=== PATIENT | female | born 1940 | race Caucasian/White ===

== ENCOUNTER → 2017-01-11 | Outpatient (CLI) | payer MEDICARE ==
--- NOTE | 2017-01-12 08:14 | MM ---
Reason for exam: history of breast cancer, mastectomy. Last mammogram was performed 1 year ago. History: Patient is postmenopausal, has history of breast cancer at age 73, and is nulliparous. Family history of breast cancer in maternal aunt and breast cancer in maternal cousin. Malignant US biopsy breast VAD LT of the left breast, July 30, 2014. Malignant US biopsy breast VAD LT of the left breast, July 30, 2014. Mastectomy of the left breast. Took estrogen for 22 years 3 months. Physical Findings: Nurse did not find any significant physical abnormalities on exam. MG 3D Diag Mammo W/Cad RT CC and MLO view(s) were taken of the right breast. Prior study comparison: January 11, 2016, right breast MG 3d diag mammo w/cad RT. July 30, 2014, left breast MG diagnostic mammo LT wo CAD. July 23, 2014, bilateral MG diagnostic mammo w CAD DEE DEE. The breast tissue is heterogeneously dense. This may lower the sensitivity of mammography. Finding: There are typically benign round calcifications in the right breast. There is no discrete abnormality. These results were verbally communicated with the patient and result sheet given to the patient on 01/11/17. ASSESSMENT: Benign, BI-RAD 2 RECOMMENDATION: Follow-up diagnostic mammogram of the right breast in 1 year.
== END | disposition home or self-care (01) ==
LOC: RADMAMWWP 15:41
PROVIDERS: ATTEND Internal Medicine Hematology & Oncology
DX: Z08 Encounter for follow-up examination after completed treatment for malignant neoplasm (principal); Z85.3 Personal history of malignant neoplasm of breast
CPT/HCPCS: G0206; G0279

== ENCOUNTER → 2017-06-02 | Outpatient (CLI) | payer MEDICARE ==
--- NOTE | 2017-06-05 11:59 | BD ---
EXAMINATION TYPE: MG DEXA axial skeleton. DATE OF EXAM: 06/02/2017 [facility] PATIENT COMPARISON: 03.12.2003 CLINICAL HISTORY: Z79.890 POST MENOPAUSAL WITH HRT, C50.812 BREAST CA Height: 66.3 Weight: 147 FRAX RISK QUESTIONS: Alcohol (3 or more units per day): NO Family History (Parent hip fracture): NO Glucocorticoids (More than 3mos): NO (Ex: prednisone, prednisolone, methylprednisolone, dexamethasone, and hydrocortisone). History of Fracture in Adulthood: NO Secondary Osteoporosis: NO 1. Type 1 Diabetes: NO 2. Hyperthyroidism: NO 3. Menopause before 45: YES 4. Malnutrition: NO 5. Chronic liver disease: NO Rheumatoid Arthritis: NO Current Tobacco Use: NO RISK FACTORS HISTORY OF: KNEE CAP < AGE OF 50 Family History of Osteoporosis: YES AUNT, MATERNAL Active: IN WHEEL CHAIR/ WALKER Diet low in dairy products/other sources of calcium: NO Postmenopausal woman: AT 40 YRS OLD, TOTAL HYST Take estrogen and/or progesterone medications: YES FROM 40 TO 60 YRS How lon YRS Lost more than 2 inches in height since high school: UNKNOWN Hyperparathyroidism: NO Adrenal Insufficiency: NO MEDICATIONS: Thyroid Medications: YES SYNTHROID How Lon+ YRS Additional Medications: VIT D, XANAX, HX OF CHEMO AND RADIATION, STATINS FOR CHOLESTEROL, Additional History: HX OF LT BREAST CANCER, MASTECTOMY, CHEMO AND RADIATION....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 Bone mineral density as measured about the Lumbar spine is: ----- L1-L4(G/cm2): 1.101 T Score Values are as follows: ----- L1: -1.1 ----- L2: -1.0 ----- L3: -0.6 ----- L4: -0.2 ----- L1-L4: -0.7 Bone mineral density FIRST LUMBAR SPINE SCAN AT [facility] Bone mineral density about the R hip (g/cm2): 0.616 Bone mineral density about the L hip (g/cm2): 0.713 T Score values are as follows: HX OF POLIO A CHILD....POSITIONING DIFFICULT FOR HIPS....UNABLE TO -----R Neck: -3.6 POSITION PROPERLY....BEST HIPS STUDY POSSIBLE -----L Neck: -1.9 -----R Total: -3.1 -----L Total: -2.3 Bone mineral density has: Decreased -17.8% since study of: 03.12.2003 FRAX%'S: THERE IS A 30.0% CHANCE OF A MAJOR OSTEOPOROTIC FX AND A 15.2% CHANCE OF HIP FX.....PROBAB ILITY IN 10 YRS TIME IMPRESSION: 1. Osteoporosis (T Score less than -2.5) as noted by T Score values in regards to the right hip. There is increased fracture risk and therapy is usually indicated based on age. Re-Screen 1-2 years. 2. Osteopenia (T Score between -2.5 and -1) as noted by T score values in regards to the left hip. There is slightly increased risk of fracture and the patient may be considered for treatment. Re-Screen 2-5 years. NOTE: T-SCORE=SD OF THE YOUNG ADULT MEAN.
== END | disposition home or self-care (01) ==
LOC: RADBDWWP 12:28
PROVIDERS: ATTEND Internal Medicine Hematology & Oncology
DX: C50.812 Malignant neoplasm of overlapping sites of left female breast (principal); M85.852 Other specified disorders of bone density and structure, left thigh; M81.0 Age-related osteoporosis without current pathological fracture; Z79.890 Hormone replacement therapy
CPT/HCPCS: 77080

== ENCOUNTER → 2018-01-12 | Outpatient (CLI) | payer MEDICARE ==
--- NOTE | 2018-01-16 07:58 | MM ---
Reason for exam: additional evaluation requested from prior study. Last mammogram was performed 1 year ago. History: Patient is postmenopausal, has history of breast cancer at age 73, and is nulliparous. Family history of breast cancer in maternal aunt and breast cancer in maternal cousin. Malignant US biopsy breast VAD LT of the left breast, July 30, 2014. Malignant US biopsy breast VAD LT of the left breast, July 30, 2014. Mastectomy of the left breast. Took estrogen for 22 years 3 months. Physical Findings: Nurse Summary: 1 x 1cm nodule in the right breast at 12 o'clock (nurse ts). MG 3D Diag Mammo W/Cad RT CC and MLO view(s) were taken of the right breast. Prior study comparison: January 11, 2017, right breast MG 3d diag mammo w/cad RT. January 11, 2016, right breast MG 3d diag mammo w/cad RT. The breast tissue is heterogeneously dense. This may lower the sensitivity of mammography. Finding: There are typically benign round calcifications in the right breast. Asymmetric breast tissue right inner lower quadrant. There is no discrete abnormality. These results were verbally communicated with the patient and result sheet given to the patient on 01/12/18. ASSESSMENT: Incomplete: need additional imaging evaluation, BI-RAD 0 RECOMMENDATION: Ultrasound of the right breast. (palpable by nurse)
--- NOTE | 2018-01-16 07:59 | USB ---
Reason for exam: additional evaluation requested from abnormal screening. History: Patient is postmenopausal, has history of breast cancer at age 73, and is nulliparous. Family history of breast cancer in maternal aunt and breast cancer in maternal cousin. Malignant US biopsy breast VAD LT of the left breast, July 30, 2014. Malignant US biopsy breast VAD LT of the left breast, July 30, 2014. Mastectomy of the left breast. Took estrogen for 22 years 3 months. US Breast Limited RT Right breast ultrasound demonstrates no cystic or solid lesion seen. These results were verbally communicated with the patient and result sheet given to the patient on 01/12/18. ASSESSMENT: Negative, BI-RAD 1 RECOMMENDATION: Follow-up diagnostic mammogram of the right breast in 1 year.
== END | disposition home or self-care (01) ==
LOC: RADMAMWWP 13:31
PROVIDERS: ATTEND Internal Medicine Hematology & Oncology
DX: Z08 Encounter for follow-up examination after completed treatment for malignant neoplasm (principal); R92.8 Other abnormal and inconclusive findings on diagnostic imaging of breast; Z85.3 Personal history of malignant neoplasm of breast
CPT/HCPCS: 77065; 76642; G0279

== ENCOUNTER → 2019-01-29 | Outpatient (CLI) | payer MEDICARE ==
--- NOTE | 2019-01-29 14:15 | MM ---
Reason for exam: additional evaluation requested from prior study. Last mammogram was performed 1 year and 1 month ago. History: Patient is postmenopausal, has history of breast cancer at age 73, and is nulliparous. Family history of breast cancer in maternal aunt and breast cancer in maternal cousin. Mastectomy of the left breast, December 2014. Malignant US biopsy breast VAD LT of the left breast, July 30, 2014. Malignant US biopsy breast VAD LT of the left breast, July 30, 2014. Took estrogen for 22 years 3 months. Physical Findings: Nurse did not find any significant physical abnormalities on exam. MG Diagnostic Mammo RT w CAD CC and MLO view(s) were taken of the right breast. Prior study comparison: January 12, 2018, right breast MG 3d diag mammo w/cad RT. January 11, 2017, right breast MG 3d diag mammo w/cad RT. The breast tissue is extremely dense which could obscure a lesion on mammography. No significant new findings when compared with previous films. These results were verbally communicated with the patient and result sheet given to the patient on 01/29/19. ASSESSMENT: Benign, BI-RAD 2 RECOMMENDATION: Follow-up diagnostic mammogram of the right breast in 1 year.
== END | disposition home or self-care (01) ==
LOC: RADMAMWWP 13:25
PROVIDERS: ATTEND Internal Medicine Hematology & Oncology
DX: R92.8 Other abnormal and inconclusive findings on diagnostic imaging of breast (principal); Z85.3 Personal history of malignant neoplasm of breast
CPT/HCPCS: 77065

== ENCOUNTER 2019-04-26 14:34 | Inpatient (IN) | payer MEDICARE ==
[2019-04-26 16:17] LABS: Basophils % (A) 1 %; Eosinophils # (A) 0.1 k/uL (0-0.7); Eosinophils % (A) 2 %; HCT 44.3 % (34.0-46.0); HGB 14.7 gm/dL (11.4-16.0); Lymphocytes # (A) 1.3 k/uL (1.0-4.8); Lymphocytes % (A) 23 %; MCH 31.9 pg (25.0-35.0); MCHC 33.1 g/dL (31.0-37.0); MCV 96.4 fL (80.0-100.0); Mean Platelet Volume 7.8; Monocytes # (A) 0.4 k/uL (0-1.0); Monocytes % (A) 6 %; Neutrophils # (A) 3.9 k/uL (1.3-7.7); Neutrophils % (A) 67 %; Platelet Count 198 k/uL (150-450); WBC 5.8 k/uL (3.8-10.6)
[2019-04-26 16:25] LABS: ALT 28 U/L (9-52); AST 50 U/L (14-36); African American GFR (CKD) >90 (>60 ml/min/1.73 sqM); Albumin 4.4 g/dL (3.5-5.0); Alkaline Phosphatase 72 U/L (38-126); Anion Gap 9 mmol/L; Blood Urea Nitrogen 14 mg/dL (7-17); Calcium 9.6 mg/dL (8.4-10.2); Carbon Dioxide 26 mmol/L (22-30); Chloride 104 mmol/L (98-107); Glucose 97 mg/dL (74-99); Magnesium 2.1 mg/dL (1.6-2.3); Potassium 5.2 mmol/L (3.5-5.1); Sodium 139 mmol/L (137-145); Total Protein 7.2 g/dL (6.3-8.2)
[2019-04-26 16:32] LABS: Prothrombin Time 10.3 sec (9.0-12.0)
[2019-04-26] MEDS ORDERED: HEPARIN SODIUM,PORCINE 5,000 UNIT/ML 1 ML VIAL IV ONE (17:28)
[2019-04-26] MEDS ORDERED: HEPARIN SODIUM,PORCINE 5,000 UNIT/ML 1 ML VIAL IV PRN ×2 (17:28→20:22)
--- NOTE | 2019-04-26 17:28 | CT ---
EXAMINATION TYPE: CT angio abd aorta w/Runoff DATE OF EXAM: 04/26/2019 HISTORY: Discoloration to right foot CT DLP: 684.7mGycm Automated Exposure Control for Dose Reduction was Utilized. CONTRAST: CT scan of the abdomen and pelvis is performed with IV Contrast, patient injected with 100 mL of Isov ue 370. Three-D reformatted images of the vasculature of the abdomen, pelvis and lower extremities wa s performed at an separate workstation and submitted for review. COMPARISON: None. FINDINGS: LUNG BASES: There is right hemidiaphragm elevation. Small scattered lung cysts. Circumferential dista l esophageal mucosal thickening. LIVER/GB: Coarsened hepatic parenchyma may relate to angiographic phase of contrast or hepatocellular disease. Correlate with liver function tests. There is prominent size of the gallbladder noted. PANCREAS: Pancreatic duct is prominent however nonenlarged. Superior mesenteric vein courses closely to the pancreatic head.. SPLEEN: No significant abnormality is seen. ADRENALS: There is uniform thickening of the left adrenal gland that may relate to adrenal gland hype rplasia. Right adrenal gland is unremarkable. KIDNEYS: Within the kidneys there are 2 small to accurately characterize renal lesions on the right. No hydronephrosis of either kidney. Extrarenal pelvises are noted. BOWEL: No dilated large or small bowel is seen however there is large degree colonic fecal stasis.. LYMPH NODES: No greater than 1cm abdominal or pelvic lymph nodes are appreciated. OSSEOUS STRUCTURES: Extensive arthropathy is seen of the femoral acetabular joints with bilateral darion nt effusions. Mild degenerative changes of the spine are also noted. VASCULATURE: Mild to moderate atherosclerosis is seen of the abdominal aorta and its branches. There is mild dilatation. Common iliac arteries and external iliac arteries, and internal arteries ap pear patent although diminutive on the right. The femoral arteries in their common and superficial po rtions appear patent proximally and then in their mid portions. The popliteal on the left appears pat ent however there is occlusion of the right popliteal artery and distal femoral artery. On the left f low distal to the popliteal artery is not seen and could relate to phase of contrast enhancement or o cclusion. OTHER: Right gluteal muscular atrophy and paraspinal muscular atrophy are seen. Anterior abdominal wa ll muscle atrophy is pronounced. Right lower extremity muscular atrophy is asymmetric from the left. IMPRESSION: 1. 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 No flow is seen distal to the left popliteal artery within the left lower extremity however this could be due to phase of contrast or diminutive flow. Correlate with physical exam pulses to determi ne the need for ultrasound of the arterial vasculature of the lower extremities. Vascular surgical co nsult is recommended. Finding was discussed with the ordering ER physician at 1724 PM on 04/26/[address] Queen. 2. Circumferential mucosal thickening of the distal esophagus. Endoscopy is recommended on nonemergen t basis. 3. Coarsened attenuation of the liver. Correlate with liver function tests to exclude hepatocellular disease. 4. Prominent size of the gallbladder. Correlate with physical exam and serum laboratory values.
[2019-04-26] MEDS ORDERED: HEPARIN SOD,PORK IN 0.45% NACL 25,000 UNIT in 0.45% NACL 1 250ML.BAG IV SCH ×2 (17:30→20:30)
[2019-04-26] MEDS ORDERED: NALOXONE 0.4 MG/ML 1 ML VIAL IV PRN (17:55)
[2019-04-26] MEDS ORDERED: oxyCODONE-APAP 5-325MG 1 EACH TAB PO PRN (17:55)
[2019-04-26] MEDS ORDERED: ONDANSETRON 4 MG/2 ML VIAL IVP PRN (17:55)
--- NOTE | 2019-04-26 17:55 | ED ---
General Adult HPI - General Chief complaint: Extremity Injury, Lower Stated complaint: purple feet Time Seen by Provider: 04/26/19 15:15 Source: patient, family Mode of arrival: wheelchair Limitations: no limitations - History of Present Illness Initial comments: Patient complains of right lower extremity pain and discoloration. Her symptoms have gotten worse over couple days. Nothing makes her symptoms better or worse. She has taken no medicines for this. She denies any operations or shortness of breath. She has no nausea or vomiting or diaphoresis. She has no new weakness. She does get around in her scooter. - Related Data Home Medications Medication Instructions Recorded Confirmed ALPRAZolam [Xanax] 0.5 mg PO TID PRN 02/05/14 04/26/19 Levothyroxine Sodium [Synthroid] 75 mcg PO DAILY 02/05/14 04/26/19 Metoprolol Tartrate [Lopressor] 25 mg PO HS 02/05/14 04/26/19 Simvastatin [Zocor] 20 mg PO HS 02/05/14 04/26/19 traMADol HCL [Ultram] 50 mg PO Q6HR PRN 02/05/14 04/26/19 Gabapentin 800 mg PO TID 09/09/14 04/26/19 Clindamycin HCl 300 mg PO TID 04/26/19 04/26/19 Letrozole [Femara] 2.5 mg PO DAILY 04/26/19 04/26/19 Allergies Allergy/AdvReac Type Severity Reaction Status Date / Time adhesive Allergy Unknown Verified 04/26/19 17:07 amoxicillin trihydrate Allergy Unknown Verified 04/26/19 17:07 [From Augmentin] ciprofloxacin [From Cipro] Allergy Unknown Verified 04/26/19 17:07 ciprofloxacin HCl Allergy Unknown Verified 04/26/19 17:07 [From Cipro] erythromycin base Allergy Unknown Verified 04/26/19 17:07 [Erythromycin Base] Macrolide Antibiotics Allergy Unknown Verified 04/26/19 17:07 Penicillins Allergy Unknown Verified 04/26/19 17:07 potassium clavulanate Allergy Unknown Verified 04/26/19 17:07 [From Augmentin] Sulfa (Sulfonamide Allergy Unknown Verified 04/26/19 17:07 Antibiotics) Review of Systems ROS Statement: Those systems with pertinent positive or pertinent negative responses have been documented in the HPI. ROS Other: All systems not noted in ROS Statement are negative. Past Medical History Past Medical History: Cancer, Hyperlipidemia, Hypertension, Thyroid Disorder Additional Past Medical History / Comment(s): ANXIETY, NEUROPATHY History of Any Multi-Drug Resistant Organisms: None Reported Past Surgical History: Breast Surgery, Hysterectomy, Tonsillectomy Additional Past Surgical History / Comment(s): LEG SURGERY, breast ca Past Anesthesia/Blood Transfusion Reactions: No Reported Reaction Past Psychological History: Anxiety Smoking Status: Never smoker Past Alcohol Use History: None Reported Past Drug Use History: None Reported - Past Family History Mother Family Medical History: Cancer Additional Family Medical History / Comment(s): ovarian Father Family Medical History: Cancer Additional Family Medical History / Comment(s): colon General Exam Limitations: no limitations General appearance: alert Head exam: Present: atraumatic Eye exam: Present: normal appearance ENT exam: Present: normal exam Neck exam: Present: normal inspection Respiratory exam: Present: normal lung sounds bilaterally Cardiovascular Exam: Present: regular rate GI/Abdominal exam: Present: soft Extremities exam: Present: tenderness, calf tenderness Back exam: Present: normal inspection Neurological exam: Present: alert, oriented X3 Skin exam: Present: other (Discoloration, primarily right lower extremity) Course Vital Signs 04/26/19 14:50 Temperature 98 F Pulse Rate 124 H Respiratory 18 Rate Blood Pressure 99/64 O2 Sat by Pulse 98 Oximetry EKG Findings - EKG Comments: EKG Findings:: Twelve-lead EKG shows ventricular 119 bpm, normal WA interval and QRS complexes, no ST elevation or depression, interpreted by me as sinus tachycardia. Medical Decision Making - Medical Decision Making Patient presents with discoloration right lower extremity, worsening pain. CT and GI no shows evidence of arterial occlusion. I consult the vascular surgery. Patient will be admitted to the hospital. I ordered IV heparin. - Lab Data Result diagrams: 04/26/19 16:03 04/26/19 16:03 Lab Results 04/26/19 04/26/19 04/26/19 Range/Units 16:03 16:03 16:03 WBC 5.8 (3.8-10.6) k/uL RBC 4.60 (3.80-5.40) m/uL Hgb 14.7 (11.4-16.0) gm/dL Hct 44.3 (34.0-46.0) % MCV 96.4 (80.0-100.0) fL MCH 31.9 (25.0-35.0) pg MCHC 33.1 (31.0-37.0) g/dL RDW 14.0 (11.5-15.5) % Plt Count 198 (150-450) k/uL Neutrophils % 67 % Lymphocytes % 23 % Monocytes % 6 % Eosinophils % 2 % Basophils % 1 % Neutrophils # 3.9 (1.3-7.7) k/uL Lymphocytes # 1.3 (1.0-4.8) k/uL Monocytes # 0.4 (0-1.0) k/uL Eosinophils # 0.1 (0-0.7) k/uL Basophils # 0.0 (0-0.2) k/uL PT (9.0-12.0) sec INR (<1.2) APTT (22.0-30.0) sec Sodium 139 (137-145) mmol/L Potassium 5.2 H (3.5-5.1) mmol/L Chloride 104 (98-107) mmol/L Carbon Dioxide 26 (22-30) mmol/L Anion Gap 9 mmol/L BUN 14 (7-17) mg/dL Creatinine 0.56 (0.52-1.04) mg/dL Est GFR (CKD-EPI)AfAm >90 (>60 ml/min/1.73 sqM) Est GFR (CKD-EPI)NonAf 90 (>60 ml/min/1.73 sqM) Glucose 97 (74-99) mg/dL Calcium 9.6 (8.4-10.2) mg/dL Magnesium 2.1 (1.6-2.3) mg/dL Total Bilirubin 1.0 (0.2-1.3) mg/dL AST 50 H (14-36) U/L ALT 28 (9-52) U/L Alkaline Phosphatase 72 (38-126) U/L Troponin I (0.000-0.034) ng/mL NT-Pro-B Natriuret Pep 5760 pg/mL Total Protein 7.2 (6.3-8.2) g/dL Albumin 4.4 (3.5-5.0) g/dL 04/26/19 04/26/19 Range/Units 16:03 16:03 WBC (3.8-10.6) k/uL RBC (3.80-5.40) m/uL Hgb (11.4-16.0) gm/dL Hct (34.0-46.0) % MCV (80.0-100.0) fL MCH (25.0-35.0) pg MCHC (31.0-37.0) g/dL RDW (11.5-15.5) % Plt Count (150-450) k/uL Neutrophils % % Lymphocytes % % Monocytes % % Eosinophils % % Basophils % % Neutrophils # (1.3-7.7) k/uL Lymphocytes # (1.0-4.8) k/uL Monocytes # (0-1.0) k/uL Eosinophils # (0-0.7) k/uL Basophils # (0-0.2) k/uL PT 10.3 (9.0-12.0) sec INR 1.0 (<1.2) APTT 23.0 (22.0-30.0) sec Sodium (137-145) mmol/L Potassium (3.5-5.1) mmol/L Chloride (98-107) mmol/L Carbon Dioxide (22-30) mmol/L Anion Gap mmol/L BUN (7-17) mg/dL Creatinine (0.52-1.04) mg/dL Est GFR (CKD-EPI)AfAm (>60 ml/min/1.73 sqM) Est GFR (CKD-EPI)NonAf (>60 ml/min/1.73 sqM) Glucose (74-99) mg/dL Calcium (8.4-10.2) mg/dL Magnesium (1.6-2.3) mg/dL Total Bilirubin (0.2-1.3) mg/dL AST (14-36) U/L ALT (9-52) U/L Alkaline Phosphatase (38-126) U/L Troponin I 0.012 (0.000-0.034) ng/mL NT-Pro-B Natriuret Pep pg/mL Total Protein (6.3-8.2) g/dL Albumin (3.5-5.0) g/dL Critical Care Time Critical Care Time: Yes Total Critical Care Time: 35 Disposition Clinical Impression: Arterial atherosclerosis Disposition: ADMITTED IP TO THIS HOSP Condition: Serious Is patient prescribed a controlled substance at d/c from ED?: No Referrals: Albert Watts MD [Primary Care Provider] - 1-2 days
[2019-04-26] MEDS ORDERED: ASPIRIN 81 MG PO STA (20:03)
[2019-04-26 20:13] VITALS: BMI 26.2
[2019-04-26] MEDS ORDERED: LETROZOLE 2.5 MG TAB PO ONE (20:20)
[2019-04-26] MEDS: GABAPENTIN 400 MG CAP PO SCH (20:25)
[2019-04-26] MEDS: METOPROLOL TARTRATE 25 MG TAB PO SCH (20:26)
--- NOTE | 2019-04-26 20:34 | P.HPIM ---
History of Present Illness H&P Date: 04/26/19 Chief Complaint: Right foot turned purple The patient is a 78-year-old female with a past medical history of polio, peripheral neuropathy, essential hypertension, dyslipidemia, hypothyroidism post radiation, chronic hip atrophy, chronic pain due to sciatica for which she takes tramadol who presents to the ER via private vehicle with chief complaint of right lower extremity turning purple. the patient reports a purple right foot rash in the dorsal side of her foot extending up her distal tibia over the last week, the patient reports some burning sensation but thought nothing off it as she thought this was her neuropathy. She reports a recent bug bite on her right coles and was taking clindamycin prescribed by her PCP. The patient reports chronic right lower extremity that is cold to touch. She denies shortness of breath, chest pain, nausea vomiting or abdominal pain. At her baseline the patient is non ambulatory and is only able to get around via scooter. she reports she has not walked for about 10 years. In the ER the patient had a complrehensive workup, ekg showed sinus tachycardia with occasional PVcs, CT angiography of the abdominal aorta with runoff indicated total occlusion of the distal right femoral artery and right popliteal artery as well as its branches with no flow seen distal to the left popliteal artery. Circumferential thickening of the distal esophagus endoscopically recommended, coarse attenuation of the liver, prominent size of the gallbladder Past Medical History Past Medical History: Cancer, Hyperlipidemia, Hypertension, Thyroid Disorder Additional Past Medical History / Comment(s): ANXIETY, NEUROPATHY History of Any Multi-Drug Resistant Organisms: None Reported Past Surgical History: Breast Surgery, Hysterectomy, Tonsillectomy Additional Past Surgical History / Comment(s): LEG SURGERY, breast ca Past Anesthesia/Blood Transfusion Reactions: No Reported Reaction Past Psychological History: Anxiety Smoking Status: Never smoker Past Alcohol Use History: None Reported Past Drug Use History: None Reported - Past Family History Mother Family Medical History: Cancer Additional Family Medical History / Comment(s): ovarian Father Family Medical History: Cancer Additional Family Medical History / Comment(s): colon Medications and Allergies Home Medications Medication Instructions Recorded Confirmed Type ALPRAZolam [Xanax] 0.5 mg PO TID PRN 02/05/14 04/26/19 History Levothyroxine Sodium [Synthroid] 75 mcg PO DAILY 02/05/14 04/26/19 History Metoprolol Tartrate [Lopressor] 25 mg PO HS 02/05/14 04/26/19 History Simvastatin [Zocor] 20 mg PO HS 02/05/14 04/26/19 History traMADol HCL [Ultram] 50 mg PO Q6HR PRN 02/05/14 04/26/19 History Gabapentin 800 mg PO TID 09/09/14 04/26/19 History Clindamycin HCl 300 mg PO TID 04/26/19 04/26/19 History Letrozole [Femara] 2.5 mg PO DAILY 04/26/19 04/26/19 History Allergies Allergy/AdvReac Type Severity Reaction Status Date / Time adhesive Allergy Unknown Verified 04/26/19 17:07 amoxicillin trihydrate Allergy Unknown Verified 04/26/19 17:07 [From Augmentin] ciprofloxacin [From Cipro] Allergy Unknown Verified 04/26/19 17:07 ciprofloxacin HCl Allergy Unknown Verified 04/26/19 17:07 [From Cipro] erythromycin base Allergy Unknown Verified 04/26/19 17:07 [Erythromycin Base] Macrolide Antibiotics Allergy Unknown Verified 04/26/19 17:07 Penicillins Allergy Unknown Verified 04/26/19 17:07 potassium clavulanate Allergy Unknown Verified 04/26/19 17:07 [From Augmentin] Sulfa (Sulfonamide Allergy Unknown Verified 04/26/19 17:07 Antibiotics) Physical Exam Vitals: Vital Signs Temp Pulse Resp BP Pulse Ox 04/26/19 18:50 90 16 118/70 04/26/19 16:52 104 H 16 130/100 100 04/26/19 14:50 98 F 124 H 18 99/64 98 Intake and Output 04/26/19 04/26/19 04/26/19 06:59 14:59 22:59 Other: Weight 64.41 kg Constitutional: No acute distress, conversant, pleasant Eyes: Anicteric sclerae, moist conjunctiva, no lid-lag, PERRLA ENMT: NC/AT,Oropharynx clear, no erythema, exudates Neck:Supple, FROM, no masses, or JVD, No carotid bruits; No thyromegaly Lungs: Clear to auscultation, Clear to percussion, Normal respiratory effort, no accessory muscle use Cardiovascular: Tachycardic and regularly irregular with gallop, or rubs +1 peripheral pitting edema Abdominal: Soft Nontender, nom distended, no guarding, no rebound or rigidity, Normoactive bowel sounds No hepatomegaly, No splenomegaly, No palpable mass No abdominal wall hernia noted Skin: Bilateral lower extremities cold to touch, violaceous rash on the dorsal surface of the right foot extending superiorly to the distal one third of the l eg with 2-3 open leg wounds Extremities: Noted atrophy and bilateral lower extremities, bilateral upper extremities contractures worse on the right greater than left, unable to auscultate right-sided peripheral pulses with Doppler Psychiatric: Alert and oriented to person, place and time, Appropriate affect Intact judgement Neuro: Muscles Strength 5/5 in all 4 extremities, Sensation to light touch grossly present throughout, Cranial nerves II-XII grossly intact. No focal sensory deficits Results CBC & Chem 7: 04/27/19 04:07 04/27/19 04:07 Labs: Abnormal Lab Results - Last 24 Hours (Table) 04/26/19 Range/Units 16:03 Potassium 5.2 H (3.5-5.1) mmol/L AST 50 H (14-36) U/L Assessment and Plan (1) Acute occlusion of artery of lower extremity Current Visit: Yes Status: Acute Code(s): I74.3 - EMBOLISM AND THROMBOSIS OF ARTERIES OF THE LOWER EXTREMITIES SNOMED Code(s): 542467366 (2) Peripheral vascular disease Current Visit: Yes Status: Acute Code(s): I73.9 - PERIPHERAL VASCULAR DISEASE, UNSPECIFIED SNOMED Code(s): 334853567 (3) Hyperlipidemia Current Visit: Yes Status: Acute Code(s): E78.5 - HYPERLIPIDEMIA, UNSPECIFIED SNOMED Code(s): 09080285 (4) SVT (supraventricular tachycardia) Current Visit: Yes Status: Acute Code(s): I47.1 - SUPRAVENTRICULAR TACHYCARDIA SNOMED Code(s): 9503034 (5) Cellulitis of right lower extremity Current Visit: Yes Status: Acute Code(s): L03.115 - CELLULITIS OF RIGHT LOWER LIMB SNOMED Code(s): 036435087 Plan: The patient is admitted anticipated greater than 2 midnight stay with acute arterial occlusion of the distal right femoral and right popliteal artery and its branches with concern for possible thromboembolic phenomenon this patient reports a history of palpitations and has been noted to be hae runs non persistent SVTs, the patient is normotensive. She was started on heparin GGT per protocol in the ER, will start aspirin, high-dose statin regimen of Lipitor. We'll consult cardiology and vascular surgery for further recommendations. The patient is resumed on her home regimen including her antibiotics which will be switched to IV clindamycin to cover for cellulitis. We'll continue to follow her clinical course CODE STATUS: DNR/DNI Discussed plan of care with: Patient Anticipated discharge: 3-[address] : Home Prophylaxis PPI therapy and heparin Time with Patient: Greater than 30
[2019-04-26] MEDS: traMADol 50 MG TAB PO PRN (20:55)
[2019-04-26] MEDS: ALPRAZolam 0.5 MG TAB PO PRN (20:56)
[2019-04-26] MEDS ORDERED: ATORVASTATIN 80 MG TAB PO SCH (21:00)
[2019-04-26] MEDS ORDERED: ATORVASTATIN 10 MG TAB PO SCH (21:00)
[2019-04-26] MEDS ORDERED: SODIUM CHLORIDE 0.9% 250 ML IV ONE (21:40)
--- NOTE | 2019-04-26 21:41 | P.PN ---
Progress Note - Text Progress Note Date: 04/26/19 78-year-old female presented to the emergency department secondary to bluish discoloration on her right foot. She does have a history of polio and peripheral neuropathy she states she has difficulty feeling her right foot normally. She states her foot is normally cool but has noticed a colder feeling over the last couple days as well as the change in color and decided to come into the hospital. She was seen in the emergency department and had arterial imaging via CT angiogram of her lower extremities performed which demonstrated absence of flow distal to the popliteal artery. She was initiated on heparin drip and a call to myself was performed per the emergency department. Upon discussion with the emergency physician patient's foot was viable and not an emergent surgical intervention needed therefore we continued the heparin drip and she was admitted to the hospital at that time. I did discuss with the emergency physician there would come and see the patient in the next couple hours after surgical cases were completed. Patient was then admitted to the floor upon her evaluation by the nurse it was determined that her foot was worse and had no Doppler signal at the DP or PT. I was called to see the patient at that time on an urgent basis. Upon evaluation of the patient's her foot is cold to the touch and she is unable to move which is her baseline. She does have popliteal Doppler signal which is monophasic. There is absent DP or PT and a faint AT noted. Due to the change in color as well as temperature I discussed with the patient possible options including catheter directed thrombolysis versus continued heparin therapy. We did discuss possible complications which included possible amputation which at that time patient stated she would like to have the procedure to decrease her risk of amputation. Consent was obtained and patient will be taken for procedure at this time.
[2019-04-26] MEDS ORDERED: HYDROmorphone 1 MG/ML 1 ML SYRINGE IVP ONE (21:52)
[2019-04-26] MEDS ORDERED: MIDAZOLAM (PF) 2 MG/2 ML VIAL IV ONE (21:53)
[2019-04-26] MEDS ORDERED: LIDOCAINE 1% INJ 10MG/ML (20 ML MDV) SQ ONE (21:55)
[2019-04-26] MEDS ORDERED: ALTEPLASE 50 MG in EMPTY BAG 1 BAG IV STA (22:28)
[2019-04-26] MEDS ORDERED: ALTEPLASE IV STA (22:31)
[2019-04-26] MEDS ORDERED: IOPAMIDOL-250 100ML BTL INTRAARTER ONE (22:51)
--- NOTE | 2019-04-26 22:54 | P.OP ---
Date of Procedure: 04/26/19 Indications for Procedure: 78-year-old female with history of polio and peripheral neuropathy presented to the emergency department for discoloration of her right lower extremity foot and increased coolness. Patient states her foot was ice cold and discolored turning purple over the last 2 days. She was seen in the emergency department and initiated on heparin drip. Upon evaluation in the hospital on the floor it was determined that she had no peripheral pulses and worsening temperature change and coloration and therefore she presents to the [facility] for catheter directed thrombolytics. Description of Procedure: Preoperative diagnosis: Right lower extremity acute below-knee arterial occlusion Postop diagnosis: Right lower extremity acute occlusion involving the tibial arteries Procedure: Right lower extremity selective angiogram and placement of thrombolytic catheter with initiation of thrombolysis this via right common femoral artery antegrade access under ultrasound guidance Surgeon: Diandra Anesthesia: Moderate sedation times 42 minutes Estimated blood loss: Minimal Complications: None Condition: Stable Findings: Femorals: Patent common femoral artery, profundus and superficial femoral artery. Popliteal: Patent without significant disease. Tibials: Anterior tibial artery is patent to the distal tibia. Tibioperoneal trunk is patent with peroneal artery patent to the midportion of the tibia and then occludes after that. There is decreased pulsatility of the blood flow down the leg consistent with outflow obstruction. Operative narrative: After written informed consent was obtained the patient all risks benefits competitions were described the patient is brought to the [facility] and laid in a supine position. The area of the right groin was prepped and draped in the usual sterile fashion. Local anesthesia with moderate sedation was performed with continuous pulse ox monitoring and EKG monitoring. Utilizing ultrasound the right common femoral artery was visualized and shown to be patent without any significant plaque. Utilizing a multipurpose needle under ultrasound guidance the artery was accessed in a antegrade fashion. Guidewire was placed followed by 6-Z[place] sheath. 035 Glidewire was then placed into the superficial femoral artery. Angiogram was then obtained of the superficial femoral artery, popliteal, tibial arteries after catheter was placed at each level. Due to the decreased flow secondary to thrombus a infusion catheter was then placed into the tibial peroneal trunk across the anterior tibial artery and thrombolytic infusion was initiated. The sheath was then sutured in place. The area was then cleansed and dressings were placed. The patient tolerated procedure well was sent to the ICU for recovery.
[2019-04-26 23:10] LABS: Glucose,Whole Blood 67 mg/dL (75-99)
[2019-04-26 23:34] LABS: Glucose,Whole Blood 59 mg/dL (75-99)
[2019-04-26 23:34] LABS: Glucose,Whole Blood 57 mg/dL (75-99)
[2019-04-27] MEDS ORDERED: CLINDAMYCIN 600 MG in DEXTROSE 5% IN WATER 50 ML IVPB SCH ×2
[2019-04-27 00:22] LABS: Glucose,Whole Blood 63 mg/dL (75-99)
[2019-04-27 00:35] LABS: Glucose,Whole Blood 98 mg/dL (75-99)
[2019-04-27] MEDS: HYDROmorphone 0.5 MG/0.5 ML SYRINGE IVP PRN (04:17)
[2019-04-27 05:02] LABS: Basophils % (A) 1 %; Eosinophils # (A) 0.1 k/uL (0-0.7); Eosinophils % (A) 2 %; HCT 39.3 % (34.0-46.0); Lymphocytes # (A) 1.2 k/uL (1.0-4.8); Lymphocytes % (A) 24 %; MCH 32.8 pg (25.0-35.0); MCV 99.4 fL (80.0-100.0); Macrocytosis Slight; Mean Platelet Volume 8.7; Monocytes # (A) 0.4 k/uL (0-1.0); Monocytes % (A) 7 %; Neutrophils # (A) 3.2 k/uL (1.3-7.7); Neutrophils % (A) 65 %; Platelet Count 141 k/uL (150-450); RBC 3.95 m/uL (3.80-5.40); RDW 15.8 % (11.5-15.5); WBC 4.9 k/uL (3.8-10.6)
[2019-04-27 05:20] LABS: African American GFR (CKD) >90 (>60 ml/min/1.73 sqM); Anion Gap 5 mmol/L; Blood Urea Nitrogen 13 mg/dL (7-17); Calcium 8.8 mg/dL (8.4-10.2); Carbon Dioxide 28 mmol/L (22-30); Chloride 105 mmol/L (98-107); Glucose 100 mg/dL (74-99); Potassium 4.2 mmol/L (3.5-5.1); Sodium 138 mmol/L (137-145)
[2019-04-27 05:28] LABS: INR 1.1 (<1.2); Prothrombin Time 11.5 sec (9.0-12.0)
[2019-04-27 05:44] LABS: Partial Thromboplastin Time 142.2 sec (22.0-30.0)
[2019-04-27] MEDS: LEVOTHYROXINE 75 MCG TAB PO SCH (06:55)
[2019-04-27] MEDS ORDERED: ASPIRIN 325 MG TAB PO SCH (09:00)
[2019-04-27] MEDS ORDERED: LETROZOLE 2.5 MG TAB PO SCH (09:00)
[2019-04-27] MEDS: PANTOPRAZOLE 40 MG TABLET PO SCH (09:05)
[2019-04-27] MEDS: GABAPENTIN 400 MG CAP PO SCH ×3 (09:05→21:21)
[2019-04-27] MEDS: traMADol 50 MG TAB PO PRN ×3 (09:05→21:21)
[2019-04-27] MEDS ORDERED: HYDROcodone/APAP 5-325MG 1 EACH TAB PO PRN (09:26)
--- NOTE | 2019-04-27 09:44 | P.PN ---
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 In the ER she underwent an extensive evaluation. Her initial vital signs her tachycardia at a pulse of 124 and slightly low blood pressure at 99/64. Initial laboratory analysis showed a slightly high potassium 5.[address] and a gram of the foot was obtained which showed total occlusion of the distal right femoral artery and right popliteal artery as well as its branches with no flow distal to the left popliteal artery as well. She was also found to have mucosal thickening of the esophagus as well as coarse attenuation of the liver. She was subsequently started on a heparin drip and vascular surgery was consulted. Arrangements were made for admission. On arrival to medical floor was noted that there was lack of pulses in her right lower extremity, this was confirmed with Doppler. Vascular surgery was emergently notified and came to the bedside. She subsequently underwent thrombectomy with catheter directed TPA on the evening of 04/26/19. Patient had initially been started on antibiotics at home due to possible cellulitis of the right lower extremity with IV Clinda, however given the recent findings this appears more consistent with arterial occlusion then infection and clindamycin will subsequently be discontinued. Patient seen and examined at bedside. She denies any chest pain, shortness breath, or lightheadedness. She complains of back pain with sciatica running down her right leg. She typically sits on a support to even out her right and left sides is due to muscle wasting she is on even at baseline. She is having worsening back pain. She does not want a Booth catheter at this point in time and would rather continue to control on and off the bed shin. Objective - Vital Signs Vital signs: Vital Signs Temp 97.2 F L 04/27/19 08:00 Pulse 77 04/27/19 08:00 Resp 13 04/27/19 08:00 BP 99/77 04/27/19 08:00 Pulse Ox 98 04/27/19 08:00 Intake & Output 04/26/19 04/27/19 04/27/19 18:59 06:59 18:59 Intake Total 543.659 40 Output Total 550 Balance -6.341 40 Weight 64.41 kg 65 kg Intake: IV 220 40 KVO 120 40 Intake, IV Titration 73.659 Amount Heparin Sod,Pork in 0.45% 73.659 NaCl 25,000 unit In 0.45 % NaCl 1 250ml.bag @ 18 UNITS/KG/HR 11.594 mls/hr IV .[id number] [facility] Rx#: [id number] Oral 250 Output: Urine 550 Other: Voiding Method Bedpan # Voids 0 0 - Exam General: Ill appearing, no distress, appears at stated age Derm: Purple discoloration to right and left feet, cold, dry Head: atraumatic, normocephalic, symmetric Eyes: EOMI, no lid lag, anicteric sclera Mouth: no lip lesion, mucus membranes moist Cardiovascular: S1S2 reg, no murmur, positive posterior tibial pulse bilateral, Lungs: CTA bilateral, no rhonchi, no rales , no accessory muscle use Abdominal: soft, nontender to palpation, no guarding, no appreciable organomegaly Ext: + gross muscle atrophy on the right, no edema, no contractures Neuro: CN II-XI grossly intact, loss of movement of right lower extremity Psych: Alert, oriented, appropriate affect - Labs CBC & Chem 7: 04/27/19 04:07 04/27/19 04:07 Labs: Abnormal Lab Results - Last 24 Hours (Table) 04/26/19 04/26/19 04/26/19 Range/Units 16:03 23:07 23:30 RDW (11.5-15.5) % Plt Count (150-450) k/uL APTT (22.0-30.0) sec Potassium 5.2 H (3.5-5.1) mmol/L Glucose (74-99) mg/dL POC Glucose (mg/dL) 67 L 57 L (75-99) mg/dL AST 50 H (14-36) U/L 04/26/19 04/26/19 04/27/19 Range/Units 23:32 23:56 04:07 RDW 15.8 H (11.5-15.5) % Plt Count 141 L (150-450) k/uL APTT (22.0-30.0) sec Potassium (3.5-5.1) mmol/L Glucose (74-99) mg/dL POC Glucose (mg/dL) 59 L 63 L (75-99) mg/dL AST (14-36) U/L 04/27/19 04/27/19 Range/Units 04:07 04:07 RDW (11.5-15.5) % Plt Count (150-450) k/uL APTT 142.2 H* (22.0-30.0) sec Potassium (3.5-5.1) mmol/L Glucose 100 H (74-99) mg/dL POC Glucose (mg/dL) (75-99) mg/dL AST (14-36) U/L Assessment and Plan Assessment: Right lower extremity acute occlusion of the tibial arteries -Status post thrombolytic lysis under ultrasound guidance on 04/26 -On heparin drip -Pain control -Vascular surgery recommendations Left sciatica - norco, zanaflex - pillows to prop patient even, uses an air cushion at home Hypoglycemia likely secondary to nothing by mouth status -Continue to follow blood sugars -Start D5 if sugars continue to be low Hypertension, controlled -Lopressor -Follow blood pressures Dyslipidemia -Continue with statin therapy Hypothyroidism -Continue with Synthroid Breast cancer -Femara Right lower extremity cellulitis ruled out stop clindamycin DVT prophylaxis: on heparin gtt Discussed with: patient, nursing Anticipated discharge: 4-[address]: SNF A total of [40] minutes was spent on the care of this complex patient more than 50% of the time was spent in counseling and care coordination.
[2019-04-27 10:03] LABS: Glucose,Whole Blood 74 mg/dL (75-99)
[2019-04-27] MEDS ORDERED: IV FLUID CONTINUATION 1,000 ML IV ONE (10:50)
[2019-04-27] MEDS ORDERED: HYDROmorphone 1 MG/ML 1 ML SYRINGE IVP ONE (10:56)
[2019-04-27] MEDS ORDERED: IOPAMIDOL-250 50ML BTL INTRAARTER ONE (11:05)
--- NOTE | 2019-04-27 11:27 | IR ---
EXAMINATION TYPE: IR angio extremity RT DATE OF EXAM: 04/26/2019 CLINICAL HISTORY: Right leg thrombosis. TECHNIQUE: Fluoroscopy. COMPARISON: None. FINDINGS: Fluoroscopic guidance was provided during thrombectomy procedure performed by Dr. Jim. A total of 8.2 minutes of fluoroscopic time was utilized during the procedure and 0 spot images are saved to PACS. IMPRESSION: As Above.
--- NOTE | 2019-04-27 11:28 | P.OP ---
Description of Procedure: Preoperative diagnosis: Right lower extremity ischemia, previous placement of thrombolytics catheter Postoperative diagnosis: Same, 3 vessel runoff below knee, diminutive posterior tibial artery Procedure: Right lower extremity angiogram via existing catheter, cessation of thrombolytics Surgeon: Elaina Booth D.O. EBL: None Urine output: Not measured Fluoroscopy time: 0.2 minutes Contrast: 15 mL Anesthesia: Moderate conscious sedation, 18 minutes Complications: None Condition: Stable Operative indication and findings: The patient is a 78-year-old female who yesterday was seen and evaluated for question of a cold leg. She was brought to the [facility] and thrombolysis was initiated. She presents today for follow-up. On imaging the superficial femoral artery is patent, there is three-vessel visualization below the knee with a more robust anterior tibial and peroneal arteries. There is a diminutive posterior tibial artery which is chronic appearing in nature no evidence of thrombus. All vessels are patent at the ankle. Procedure in detail: The patient was taken to the special suite and placed in supine position the right groin and previously placed catheter were prepped and draped in usual sterile fashion. A preprocedure timeout was performed, all parties were in agreement. The inner core of the thrombolytics infusion catheter was removed. The cath was pulled back into the popliteal artery and angiograms performed revealing more robust appearing anterior tibial and peroneal arteries and previous along with the diminutive appearing posterior tibial artery. Imaging was performed down to the level of the ankle. The catheter was then removed. Final imaging of the superficial femoral artery was performed. At that point ACT was checked and found be 176 therefore the sheath was removed and manual pressure was held until hemostasis was adequate. A pressure dressing was applied. The patient was transferred back to her room in stable condition having tolerated her procedure well
[2019-04-27 11:46] LABS: Glucose,Whole Blood 89 mg/dL (75-99)
--- NOTE | 2019-04-27 12:08 | P.CNPUL ---
History of Present Illness Consult date: 04/27/19 Requesting physician: Nick Ramirez Reason for consult: other (ICU management. Acute right lower extremity ischemia) Chief complaint: Purplish discoloration of right foot History of present illness: This is a 78-year-old female with history of multiple medical problems including poliomyelitis, peripheral neuropathy, essential hypertension, hypothyroidism, breast cancer, chronic sciatica patient presented initially to the walk-in clinic with 1 week history of bluish and purple discoloration of the right foot. Patient could not experience any pain because of her underlying neuropathy she also noted a rash at the dorsal aspect of her foot. In the walk-in clinic, she was placed on antibiotics in the form of clindamycin orally. Patient called my office and was trying to set up an appointment for follow-up. However based on the clinical history over the phone, I suggested that she go to the emergency room. Patient came into the ER, and she was noted to have ischemic changes, and possible arterial thrombosis of the right lower extremity. Hence the patient was seen by vascular surgery on consultation, CT angiogram of her right lower extremity demonstrated absence of flow distal to the popliteal artery. Patient was started on heparin, then she was later found to have popliteal Doppler signal, and there was absent dorsalis pedis and posterior tibial signals. Then the patient underwent right lower extremity selective angiogram and placement of thrombolytic catheter with initiation of thrombi lysis via right common femoral artery antegrade access under ultrasound guidance. Thrombolyze his catheter was placed into the tibial peroneal trunk across the anterior tibial artery and thrombolytic infusion was initiated. This was kept overnight, and today the patient underwent another evaluation by vascular surgery, she had right lower extremity angiogram via existing catheter and cessation of thrombolytics. Postoperatively patient was sent back to the ICU. I saw the patient before going to the or, and she was basically asymptomatic. She did have cold and purplish feet, and diminished distal pulses. Review of Systems Constitutional: Denies any fever or chills, denies any weight loss. Pulmonary: Denies any cough wheezing or shortness of breath. Cardiac: Denies any chest pain palpitations, no anginal symptoms, no syncope, no dizziness. GI: Denies any nausea vomiting abdominal pain melena or hematemesis. Genitourinary: Denies any dysuria frequency urgency or hematuria. Musculoskeletal: Patient has history of post polio neuropathy and weakness in both lower extremities. Psychiatric: Denies any symptoms of active depression. Hematologic: Denies any clotting bleeding or bruising. Skin: As noted in HPI. Past Medical History Past Medical History: Cancer, Hyperlipidemia, Hypertension, Thyroid Disorder Additional Past Medical History / Comment(s): ANXIETY, NEUROPATHY History of Any Multi-Drug Resistant Organisms: None Reported Past Surgical History: Breast Surgery, Hysterectomy, Tonsillectomy Additional Past Surgical History / Comment(s): LEG SURGERY, breast ca Past Anesthesia/Blood Transfusion Reactions: No Reported Reaction Past Psychological History: Anxiety Smoking Status: Never smoker Past Alcohol Use History: None Reported Past Drug Use History: None Reported - Past Family History Mother Family Medical History: Cancer Additional Family Medical History / Comment(s): ovarian Father Family Medical History: Cancer Additional Family Medical History / Comment(s): colon Medications and Allergies Home Medications Medication Instructions Recorded Confirmed Type ALPRAZolam [Xanax] 0.5 mg PO TID PRN 02/05/14 04/26/19 History Levothyroxine Sodium [Synthroid] 75 mcg PO DAILY 02/05/14 04/26/19 History Metoprolol Tartrate [Lopressor] 25 mg PO HS 02/05/14 04/26/19 History Simvastatin [Zocor] 20 mg PO HS 02/05/14 04/26/19 History traMADol HCL [Ultram] 50 mg PO Q6HR PRN 02/05/14 04/26/19 History Gabapentin 800 mg PO TID 09/09/14 04/26/19 History Clindamycin HCl 300 mg PO TID 04/26/19 04/26/19 History Letrozole [Femara] 2.5 mg PO DAILY 04/26/19 04/26/19 History Allergies Allergy/AdvReac Type Severity Reaction Status Date / Time adhesive Allergy Unknown Verified 04/26/19 17:07 amoxicillin trihydrate Allergy Unknown Verified 04/26/19 17:07 [From Augmentin] ciprofloxacin [From Cipro] Allergy Unknown Verified 04/26/19 17:07 ciprofloxacin HCl Allergy Unknown Verified 04/26/19 17:07 [From Cipro] erythromycin base Allergy Unknown Verified 04/26/19 17:07 [Erythromycin Base] Macrolide Antibiotics Allergy Unknown Verified 04/26/19 17:07 Penicillins Allergy Unknown Verified 04/26/19 17:07 potassium clavulanate Allergy Unknown Verified 04/26/19 17:07 [From Augmentin] Sulfa (Sulfonamide Allergy Unknown Verified 04/26/19 17:07 Antibiotics) Physical Exam Vitals: Vital Signs Temp Pulse Pulse Resp BP BP Pulse Ox 04/27/19 10:00 114 H 17 103/71 90 L 04/27/19 09:00 95 17 89/57 95 04/27/19 08:00 97.2 F L 77 13 99/77 98 04/27/19 07:00 75 12 95/61 98 04/27/19 06:00 86 16 89/67 98 04/27/19 05:00 70 14 89/75 98 04/27/19 04:00 97.6 F 72 12 91/59 98 04/27/19 03:00 71 13 84/69 98 04/27/19 02:00 70 11 L 97/70 98 04/27/19 01:00 87 15 97/67 97 04/27/19 00:00 97.6 F 89 10 L 99/69 94 L 04/26/19 23:12 90 04/26/19 20:00 99.1 F 118 H 16 118/75 97 04/26/19 18:50 90 16 118/70 04/26/19 16:52 104 H 16 130/100 100 04/26/19 14:50 98 F 124 H 18 99/64 98 Intake and Output 04/26/19 04/27/19 04/27/19 22:59 06:59 14:59 Intake Total 100 443.659 155 Output Total 550 Balance 100 -106.341 155 Intake: IV 100 120 155 KVO 120 80 Intake, IV Titration 73.659 Amount Heparin Sod,Pork in 0.45% 73.659 NaCl 25,000 unit In 0.45 % NaCl 1 250ml.bag @ 18 UNITS/KG/HR 11.594 mls/hr IV .[id number] [facility] Rx#: [id number] Oral 250 Output: Urine 550 Other: Voiding Method Bedpan Bedpan # Voids 1 0 0 Weight 65 kg Physical Exam: Revealed a 78-year-old female, in no distress, Head: Atraumatic, normocephalic. HEENT:[Neck is supple.] [No neck masses.] [No thyromegaly.] [No JVD.] Moist mucous membranes. Chest: [Clear throughout, no crackles, no rhonchi, no wheezes.] Cardiac Exam: [Normal S1 and S2, no S3 gallop, no murmur.] Abdomen: [Soft, nontender, no megaly, no rebound, no guarding, normal bowel sounds.] Extremities: Significant muscle atrophy and weakness noted in lower extremities especially on the right . Cold and purplish feet bilaterally. Diminished posterior tibial pulses bilaterally. No dorsalis pedis pulses. Neurological Exam: Alert and oriented 3. Right lower extremity is weak, and paralyzed. Skin: Purplish discoloration of the right and left feet, both are cold and dry. Lymphatics: No lymphadenopathy. Psychiatric: Normal mood affect and normal mental status examination. Results - Laboratory Findings CBC and BMP: 04/27/19 04:07 04/27/19 04:07 PT/INR, D-dimer PT 11.5 sec (9.0-12.0) 04/27/19 04:07 INR 1.1 (<1.2) 04/27/19 04:07 Abnormal lab findings: Abnormal Labs 04/26/19 04/26/19 04/26/19 16:03 23:07 23:30 RDW Plt Count APTT Potassium 5.2 H Glucose POC Glucose (mg/dL) 67 L 57 L AST 50 H 04/26/19 04/26/19 04/27/19 23:32 23:56 04:07 RDW 15.8 H Plt Count 141 L APTT Potassium Glucose POC Glucose (mg/dL) 59 L 63 L AST 04/27/19 04/27/19 04/27/19 04:07 04:07 09:15 RDW Plt Count APTT 142.2 H* >200.0 H* Potassium Glucose 100 H POC Glucose (mg/dL) AST 04/27/19 04/27/19 10:01 10:40 RDW Plt Count APTT 33.6 H Potassium Glucose POC Glucose (mg/dL) 74 L AST - Diagnostic Findings Additional studies: Reviewed angiography findings/report done by vascular surgery and the radiologist. Assessment and Plan Assessment: Impression: 1 acute occlusion of right tibial arteries, status post intra-arterial catheter thrombolysis by vascular surgery on 04/26/2019 2 multiple comorbidities including hypertension, post polio syndrome, breast cancer, dyslipidemia, hypothyroidism, Recommendation: Fully agree with the present treatment plan as per vascular surgery on the case, continue heparin, resume patient on her usual medications, will continue to follow in the ICU. Time with Patient: Greater than 30
[2019-04-27] MEDS ORDERED: DIGOXIN 250 MCG/ML 2 ML AMP IVP ONE (12:42)
--- NOTE | 2019-04-27 13:26 | ECHOF ---
Referral Reason:svt MEASUREMENTS -------- HEIGHT: 170.2 cm WEIGHT: 64.9 kg BP: IVSd: 1.2 cm (0.6 - 1.1) LVIDd: 4.0 cm (3.9 - 5.3) LVPWd: 1.3 cm (0.6 - 1.1) IVSs: 1.2 cm LVIDs: 3.5 cm LVPWs: 1.5 cm LA Diam: 5.5 cm (2.7 - 3.8) RVIDd: 2.2 cm (< 3.3) LAESV Index (A-L): 42.64 ml/m Ao Diam: 3.2 cm (2.0 - 3.7) LA Diam: 3.2 cm (2.7 - 3.8) AV Cusp: 1.4 cm (1.5 - 2.6) EPSS: 0.5 cm MV E Yony: 0.76 m/s MV DecT: 231 ms MV A Yony: 0.70 m/s MV E/A Ratio: 1.09 RAP: 5.00 mmHg RVSP: 29.38 mmHg MV EF SLOPE: 59.61 mm/s (70 - 150) MV EXCURSION: 16.10 mm (> 18.000) FINDINGS -------- Sinus rhythm. This was a technically adequate study. The left ventricular size is normal. There is mild concentric left ventricular hypertrophy. Overa ll left ventricular systolic function is low-normal with, an EF between 50 - 55 %. The right ventricle is normal in size. The left atrium is markedly dilated. LA is severely dilated >40 ml/m2 The right atrial size is normal. There is mild aortic valve sclerosis. There is no evidence of aortic regurgitation. Moderate mitral annular calcification present. Njukbbab-we-sipvqz mitral stenosis. The peak and mean MV gradients are 13.66mmHg 6.22mmHg as measured by doppler. Mild tricuspid regurgitation present. There is no evidence of pulmonary hypertension. The right v entricular systolic pressure, as measured by Doppler, is 29.38mmHg. There is no pulmonic regurgitation present. The aortic root size is normal. There is no pericardial effusion. CALCIFIED SUBMITRAL APPARATUS WITH TETHERING OF MV LEAFLETS. NO L A MASS CONCLUSIONS -------- 1. The left ventricular size is normal. 2. There is mild concentric left ventricular hypertrophy. 3. Overall left ventricular systolic function is low-normal with, an EF between 50 - 55 %. 4. The right ventricle is normal in size. 5. The left atrium is markedly dilated. 6. LA is severely dilated >40 ml/m2 7. The right atrial size is normal. 8. There is mild aortic valve sclerosis. 9. Moderate mitral annular calcification present. 10. The peak and mean MV gradients are 13.66mmHg 6.22mmHg as measured by doppler. 11. Gpvzytps-ow-nlhrys mitral stenosis. 12. Mild tricuspid regurgitation present. 13. There is no evidence of pulmonary hypertension. 14. The right ventricular systolic pressure, as measured by Doppler, is 29.38mmHg. 15. There is no pulmonic regurgitation present. 16. The aortic root size is normal. 17. There is no pericardial effusion. ENTREPRENEUR: Reshma Nava RDCS
--- NOTE | 2019-04-27 13:56 | P.CRDCN ---
History of Present Illness Consult date: 04/27/19 Requesting physician: Nick Ramirez Consult reason: atrial fibrillation History of present illness: The patient is a 78-year-old female who presents to the hospital with new onset of right lower extremity skin changes. The patient states she had several bug bites on her shins, which eventually turned purple progressively moving up towards her coles. She had been placed on clindamycin for her insect bites. In the emergency room EKG showed sinus tachycardia with occasional PVCs. CT and she'll of the abdominal aorta with runoff showed total occlusion of the distal right femoral artery and right popliteal artery. She also had no flow distal to the left popliteal artery. Vascular surgery was consulted for arterial occlusion. She was taken for an angiogram, with a were unable to dislodge her occlusion. Sheath was left in place and she was sent to the ICU for further monitoring. She is currently on heparin drip. She will again return to the OR with vascular surgery today. PAST MEDICAL HISTORY: Polio, peripheral neuropathy, hyperlipidemia, hypertension, thyroid disorder REVIEW OF SYSTEMS: No fever or chills. No cough or expectoration. No diaphoresis. Patient denies headache, dizziness, blurred vision, double vision. Patient denies any stomach discomfort. No nausea, vomiting. No hematochezia. No hematemesis. Denies any black stools or blood in his stools. Denies dysuria or hematuria. Patient has chronic lower extremity discomfort, more so on her left side. PHYSICAL EXAMINATION: This is a 78year-old female in no apparent distress at the time of my examination. she has mild musculoskeletal discomfort. HEENT: Head is atraumatic, normocephalic. Pupils are equal, round. Sclerae anicteric. Conjunctivae are clear. Mucous membranes of the mouth are moist. Neck is supple. There is no jugular venous distention. No carotid bruit is heard. CHEST EXAMINATION: Lungs are clear to auscultation. No chest wall tenderness is noted on palpation or with deep breathing. HEART EXAMINATION: Heart rate is irregular. Rate in the one-teens. S1, S2 heard. No murmurs, gallops or rub. ABDOMEN: Soft, nontender. Bowel sounds are heard. No organomegaly noted. EXTREMITIES: No palpable lower extremity pulses. Right lower extremity is cool, left lower extremity is cold to touch. Her right upper extremity is atrophied and she has bilateral foot drop. NEUROLOGIC EXAMINATION: Patient is awake, alert and oriented x3. EKG reviewed with Dr. Woods which shows an atrial tachycardia with right bundle branch block and PVCs LABORATORY DATA: WBC 4.9, hemoglobin 13.0, hematocrit 39.3, platelets 141, sodium 138, potassium 4.2, BUN 13, creatinine 0.54, FINAL ASSESSMENT AND PLAN: #1 PAD, right femoral occlusion #2 atrial tachycardia, currently rate controlled, will need long-term antic oagulation #3 hypertension, adequately controlled #4 post polio syndrome Plan: Echocardiogram with Doppler. Continue beta fred for rate control. Suggest either IV heparin on novel anticoagulation. Will continue to monitor and further recommendations to follow based on course of treatment. Past Medical History Past Medical History: Cancer, Hyperlipidemia, Hypertension, Thyroid Disorder Additional Past Medical History / Comment(s): ANXIETY, NEUROPATHY History of Any Multi-Drug Resistant Organisms: None Reported Past Surgical History: Breast Surgery, Hysterectomy, Tonsillectomy Additional Past Surgical History / Comment(s): LEG SURGERY, breast ca Past Anesthesia/Blood Transfusion Reactions: No Reported Reaction Past Psychological History: Anxiety Smoking Status: Never smoker Past Alcohol Use History: None Reported Past Drug Use History: None Reported - Past Family History Mother Family Medical History: Cancer Additional Family Medical History / Comment(s): ovarian Father Family Medical History: Cancer Additional Family Medical History / Comment(s): colon Medications and Allergies Home Medications Medication Instructions Recorded Confirmed Type ALPRAZolam [Xanax] 0.5 mg PO TID PRN 02/05/14 04/26/19 History Levothyroxine Sodium [Synthroid] 75 mcg PO DAILY 02/05/14 04/26/19 History Metoprolol Tartrate [Lopressor] 25 mg PO HS 02/05/14 04/26/19 History Simvastatin [Zocor] 20 mg PO HS 02/05/14 04/26/19 History traMADol HCL [Ultram] 50 mg PO Q6HR PRN 02/05/14 04/26/19 History Gabapentin 800 mg PO TID 09/09/14 04/26/19 History Clindamycin HCl 300 mg PO TID 04/26/19 04/26/19 History Letrozole [Femara] 2.5 mg PO DAILY 04/26/19 04/26/19 History Allergies Allergy/AdvReac Type Severity Reaction Status Date / Time adhesive Allergy Unknown Verified 04/26/19 17:07 amoxicillin trihydrate Allergy Unknown Verified 04/26/19 17:07 [From Augmentin] ciprofloxacin [From Cipro] Allergy Unknown Verified 04/26/19 17:07 ciprofloxacin HCl Allergy Unknown Verified 04/26/19 17:07 [From Cipro] erythromycin base Allergy Unknown Verified 04/26/19 17:07 [Erythromycin Base] Macrolide Antibiotics Allergy Unknown Verified 04/26/19 17:07 Penicillins Allergy Unknown Verified 04/26/19 17:07 potassium clavulanate Allergy Unknown Verified 04/26/19 17:07 [From Augmentin] Sulfa (Sulfonamide Allergy Unknown Verified 04/26/19 17:07 Antibiotics) Physical Exam Vitals: Vital Signs Temp Pulse Pulse Resp BP BP Pulse Ox 04/27/19 13:30 117 H 12 91/76 98 04/27/19 13:15 116 H 10 L 100/69 97 04/27/19 13:00 117 H 18 90/58 97 04/27/19 12:45 117 H 13 89/64 98 04/27/19 12:30 90/59 04/27/19 12:15 96.4 F L 117 H 10 L 91/52 92 L 04/27/19 12:00 118 H 13 73/57 91 L 04/27/19 11:45 117 H 27 H 91/60 89 L 04/27/19 11:00 110/72 04/27/19 10:45 110/72 04/27/19 10:00 114 H 17 103/71 90 L 04/27/19 09:00 95 17 89/57 95 04/27/19 08:00 97.2 F L 77 13 99/77 98 04/27/19 07:00 75 12 95/61 98 04/27/19 06:00 86 16 89/67 98 04/27/19 05:00 70 14 89/75 98 04/27/19 04:00 97.6 F 72 12 91/59 98 04/27/19 03:00 71 13 84/69 98 04/27/19 02:00 70 11 L 97/70 98 04/27/19 01:00 87 15 97/67 97 04/27/19 00:00 97.6 F 89 10 L 99/69 94 L 04/26/19 23:12 90 04/26/19 20:00 99.1 F 118 H 16 118/75 97 04/26/19 18:50 90 16 118/70 04/26/19 16:52 104 H 16 130/100 100 04/26/19 14:50 98 F 124 H 18 99/64 98 Intake and Output 04/26/19 04/27/19 04/27/19 22:59 06:59 14:59 Intake Total 100 443.659 195 Output Total 550 Balance 100 -106.341 195 Intake: IV 100 120 195 KVO 120 120 Intake, IV Titration 73.659 Amount Heparin Sod,Pork in 0.45% 73.659 NaCl 25,000 unit In 0.45 % NaCl 1 250ml.bag @ 18 UNITS/KG/HR 11.594 mls/hr IV .[id number] [facility] Rx#: [id number] Oral 250 Output: Urine 550 Other: Voiding Method Bedpan Bedpan # Voids 1 0 0 Weight 65 kg Results 04/27/19 04:07 04/27/19 04:07 Cardiac Enzymes 04/26/19 04/26/19 Range/Units 16:03 16:03 AST 50 H (14-36) U/L Troponin I 0.012 (0.000-0.034) ng/mL Coagulation 04/26/19 04/27/19 04/27/19 Range/Units 16:03 04:07 09:15 PT 10.3 11.5 (9.0-12.0) sec APTT 23.0 142.2 H* >200.0 H* (22.0-30.0) sec 04/27/19 Range/Units 10:40 PT (9.0-12.0) sec APTT 33.6 H (22.0-30.0) sec CBC 04/26/19 04/27/19 Range/Units 16:03 04:07 WBC 5.8 4.9 (3.8-10.6) k/uL RBC 4.60 3.95 (3.80-5.40) m/uL Hgb 14.7 13.0 (11.4-16.0) gm/dL Hct 44.3 39.3 (34.0-46.0) % Plt Count 198 141 L (150-450) k/uL Comprehensive Metabolic Panel 04/26/19 04/27/19 Range/Units 16:03 04:07 Sodium 139 138 (137-145) mmol/L Potassium 5.2 H 4.2 (3.5-5.1) mmol/L Chloride 104 105 (98-107) mmol/L Carbon Dioxide 26 28 (22-30) mmol/L BUN 14 13 (7-17) mg/dL Creatinine 0.56 0.54 (0.52-1.04) mg/dL Glucose 97 100 H (74-99) mg/dL Calcium 9.6 8.8 (8.4-10.2) mg/dL AST 50 H (14-36) U/L ALT 28 (9-52) U/L Alkaline Phosphatase 72 (38-126) U/L Total Protein 7.2 (6.3-8.2) g/dL Albumin 4.4 (3.5-5.0) g/dL Current Medications Generic Name Dose Route Start Last Admin Trade Name Freq PRN Reason Stop Dose Admin Hydrocodone Bitart/Acetaminophen 1 each 04/27/19 09:26 [place] 5-325 PO Q6HR PRN MODERATE Pain Alprazolam 0.5 mg 04/26/19 17:58 04/26/19 20:56 Xanax PO 0.5 mg TID PRN Administration Anxiety Apixaban 5 mg 04/27/19 15:30 Eliquis PO BID LETICIA Atorvastatin Calcium 80 mg 04/26/19 21:00 04/26/19 20:21 Lipitor PO Not Given HS LETICIA Gabapentin 800 mg 04/26/19 22:00 04/27/19 09:05 Neurontin PO 800 mg TID LETICIA Administration Heparin Sodium (Porcine) 0 unit 04/26/19 20:22 Heparin IV PER PROTOCOL PRN Low PTT Protocol Hydromorphone HCl 0.5 mg 04/26/19 22:59 04/27/19 04:17 Dilaudid IVP 0.5 mg Q3HR PRN Administration SEVERE Pain Heparin Sodium/Sodium Chloride 250 mls @ 11.594 mls/hr 04/26/19 20:30 04/27/19 06:30 25,000 unit/ Sodium Chloride IV 0 units/kg/hr .[id number] LETICIA 0 mls/hr Titration Protocol 18 UNITS/KG/HR Letrozole 2.5 mg 04/27/19 17:30 Femara PO 1730 [facility] Levothyroxine Sodium 75 mcg 04/27/19 06:30 04/27/19 06:55 Synthroid PO 75 mcg DAILY@0630 [facility] Administration Metoprolol Tartrate 25 mg 04/26/19 21:00 04/26/19 20:26 Lopressor PO 25 mg HS [facility] Administration Naloxone HCl 0.2 mg 04/26/19 17:55 Narcan IV Q2M PRN Opioid Reversal Ondansetron HCl 4 mg 04/26/19 17:55 Zofran IVP Q8HR PRN Nausea And Vomiting Pantoprazole Sodium 40 mg 04/27/19 07:30 04/27/19 09:05 Protonix PO 40 mg [id number] [facility] Administration Tizanidine HCl 2 mg 04/27/19 09:26 Zanaflex PO TID PRN Muscle Spasm Tramadol HCl 50 mg 04/26/19 17:58 04/27/19 09:05 Ultram PO 50 mg Q6HR PRN Administration MILD Pain Intake and Output 04/26/19 04/27/19 04/27/19 22:59 06:59 14:59 Intake Total 100 443.659 195 Output Total 550 Balance 100 -106.341 195 Intake: IV 100 120 195 KVO 120 120 Intake, IV Titration 73.659 Amount Heparin Sod,Pork in 0.45% 73.659 NaCl 25,000 unit In 0.45 % NaCl 1 250ml.bag @ 18 UNITS/KG/HR 11.594 mls/hr IV .[id number] [facility] Rx#: [id number] Oral 250 Output: Urine 550 Other: Voiding Method Bedpan Bedpan # Voids 1 0 0 Weight 65 kg 04/27/19 04:07 04/27/19 04:07
--- NOTE | 2019-04-27 15:11 | IR ---
EXAMINATION TYPE: IR angio extremity RT DATE OF EXAM: 04/27/2019 CLINICAL HISTORY: Right leg thrombosis TECHNIQUE: Fluoroscopy. COMPARISON: None. FINDINGS: Fluoroscopic guidance was provided during lower extremity thrombectomy procedure performed by Dr. Booth. A total of 0.2 minutes of fluoroscopic time was utilized during the procedure and 4 c ine runs are acquired. Please refer to procedure note for further details as I was not present or per formed procedure. IMPRESSION: As Above.
[2019-04-27] MEDS: APIXABAN 5 MG TAB PO SCH (16:09)
[2019-04-27] MEDS ORDERED: MD COMMUNICATION TO PHARMACY 1 EACH MISC PO PRN (18:45)
[2019-04-27] MEDS: LETROZOLE 2.5 MG TAB PO SCH (18:50)
[2019-04-27] MEDS: METOPROLOL TARTRATE 25 MG TAB PO SCH (21:23)
[2019-04-27] MEDS: ALPRAZolam 0.5 MG TAB PO PRN (21:24)
[2019-04-27] MEDS: SIMVASTATIN 20 MG PO SCH (21:26)
[2019-04-28] MEDS: HYDROmorphone 0.5 MG/0.5 ML SYRINGE IVP PRN ×2 (03:04→21:20)
[2019-04-28 04:59] LABS: HCT 34.9 % (34.0-46.0); HGB 11.5 gm/dL (11.4-16.0); MCH 31.7 pg (25.0-35.0); Mean Platelet Volume 8.3; Platelet Count 146 k/uL (150-450); RBC 3.63 m/uL (3.80-5.40); RDW 14.2 % (11.5-15.5); WBC 4.8 k/uL (3.8-10.6)
[2019-04-28 05:18] LABS: African American GFR (CKD) >90 (>60 ml/min/1.73 sqM); Anion Gap 5 mmol/L; Blood Urea Nitrogen 12 mg/dL (7-17); Calcium 8.5 mg/dL (8.4-10.2); Carbon Dioxide 28 mmol/L (22-30); Chloride 104 mmol/L (98-107); Glucose 88 mg/dL (74-99); Potassium 4.4 mmol/L (3.5-5.1); Sodium 137 mmol/L (137-145)
[2019-04-28] MEDS: LEVOTHYROXINE 75 MCG TAB PO SCH (06:19)
[2019-04-28] MEDS: PANTOPRAZOLE 40 MG TABLET PO SCH (08:12)
[2019-04-28] MEDS: APIXABAN 5 MG TAB PO SCH ×2 (08:12→21:19)
[2019-04-28] MEDS: GABAPENTIN 400 MG CAP PO SCH ×3 (08:12→21:17)
[2019-04-28] MEDS: traMADol 50 MG TAB PO PRN ×2 (08:21→16:15)
--- NOTE | 2019-04-28 10:17 | P.PN ---
Subjective Progress Note Date: 04/28/19 Principal diagnosis: Right lower extremity acute occlusive disease 78-year-old female with history of right lower extremity acute arterial occlusion status post catheter directed thrombolysis was seen and examined at the bedside. Patient states she has been doing well and her right foot is improving. She states her foot is warm but still has some discoloration which was normal prior to this episode. She denies any numbness or tingling. She is unable to move her right foot normally due to history of polio. She denies any fevers, chills, chest pain or shortness of breath. Objective - Vital Signs Vital signs: Vital Signs Temp 97.5 F L 04/28/19 08:00 Pulse 118 H 04/28/19 09:00 Resp 16 04/28/19 09:00 BP 92/56 04/28/19 09:00 Pulse Ox 95 04/28/19 09:00 Intake & Output 04/27/19 04/28/19 04/28/19 18:59 06:59 18:59 Intake Total 275 220 40 Output Total 200 800 550 Balance 75 -580 -510 Weight 64 kg Intake: IV 275 220 40 KVO 200 220 40 Output: Urine 100 800 550 Emesis 100 0 Other: Voiding Method Bedpan Bedside Commode # Voids 1 0 1 - Exam Right foot is warm with good capillary refill. Multiphasic DP and PT signals. Right groin is clean, dry and intact. There is no hematoma. Minimal tenderness to palpation. Right upper and lower extremities with out muscle strength as well as contracted right upper extremity. Bilateral foot drop noted which is chronic. Good multiphasic signals DP and PT of the left foot with good capillary refill. - Constitutional General appearance: Present: cooperative - EENT Eyes: Present: PERRLA - Respiratory Respiratory: bilateral: CTA - Cardiovascular Rhythm: other (tachycardic) - Gastrointestinal General gastrointestinal: Absent: distended, tenderness - Psychiatric Psychiatric: Present: A&O x's 3, appropriate affect, intact judgment & insight - Labs CBC & Chem 7: 04/28/19 04:16 04/28/19 04:16 Labs: Abnormal Lab Results - Last 24 Hours (Table) 04/27/19 04/27/19 04/27/19 Range/Units 09:15 10:01 10:40 RBC (3.80-5.40) m/uL Plt Count (150-450) k/uL APTT >200.0 H* 33.6 H (22.0-30.0) sec POC Glucose (mg/dL) 74 L (75-99) mg/dL 04/28/19 Range/Units 04:16 RBC 3.63 L (3.80-5.40) m/uL Plt Count 146 L (150-450) k/uL APTT (22.0-30.0) sec POC Glucose (mg/dL) (75-99) mg/dL Assessment and Plan Assessment: 1. Acute right lower extremity tibial artery occlusions status post catheter directed thrombolytic lysis 2. Atrial tachycardia 3. History of hypertension, polio, breast cancer, hypothyroidism. Plan: Okay to transfer to the floor from a vascular surgery standpoint. Agree with Yariel. Ok to remove dressing in groin. Follow up in 2 weeks in office.
[2019-04-28] MEDS ORDERED: SODIUM CHLORIDE 0.9% 500 ML 250 ML IV ONE (10:28)
--- NOTE | 2019-04-28 10:50 | P.PN ---
Subjective Progress Note Date: 04/28/19 Patient reports she is feeling much better and her right foot is feeling much better. She did complain of having constipation and requests something for the relief. On review of patient data it was noted that patient's heart rate is running around 120 bpm and nurse reported that the manager web application is aware of. And patient is tachycardic like that since yesterday post procedure. Patient denies chest pain, palpitation, dizziness, headache, lightheadedness, nausea, vomiting, fever, chills and denies rest of the review system. On review of chart was noted that patient had 2-D echocardiogram done which showed ejection fraction 50-55% with moderately severe mitral stenosis and left atrial severe debilitation. Patient underwent catheter selective tPA for her right lower extremity arterial thrombus and with much improved circulation on post thrombolytics arteriogram. Objective - Vital Signs Vital signs: Vital Signs Temp 97.5 F L 04/28/19 08:00 Pulse 118 H 04/28/19 10:00 Resp 19 04/28/19 10:00 BP 110/76 04/28/19 10:00 Pulse Ox 97 04/28/19 10:00 Intake & Output 04/27/19 04/28/19 04/28/19 18:59 06:59 18:59 Intake Total 275 220 80 Output Total 200 800 550 Balance 75 -580 -470 Weight 64 kg Intake: IV 275 220 80 KVO 200 220 80 Output: Urine 100 800 550 Emesis 100 0 0 Other: Voiding Method Bedpan Bedside Commode # Voids 1 0 1 - Constitutional General appearance: Present: cooperative, no acute distress - EENT Eyes: Present: EOMI, normal appearance ENT: Present: hearing grossly normal, NA/AT - Neck Neck: Present: normal ROM. Absent: lymphadenopathy, rigidity - Respiratory Respiratory: bilateral: CTA, negative: rales, rhonchi, wheezing - Cardiovascular Details: Low-grade regular tachycardia noted. Rhythm: regular Heart sounds: normal: S1, S2 Abnormal Heart Sounds: Present: systolic murmur - Gastrointestinal General gastrointestinal: Present: normal bowel sounds, soft. Absent: distended, rigid, tenderness - Neurologic Neurologic: Present: CNII-XII intact. Absent: focal deficits - Psychiatric Psychiatric: Present: A&O x's 3, appropriate affect, intact judgment & insight - Allied health notes Allied health notes reviewed: nursing - Labs CBC & Chem 7: 08/04/19 04:16 04/28/19 04:16 Labs: Abnormal Lab Results - Last 24 Hours (Table) 04/27/19 04/28/19 Range/Units 10:40 04:16 RBC 3.63 L (3.80-5.40) m/uL Plt Count 146 L (150-450) k/uL APTT 33.6 H (22.0-30.0) sec Assessment and Plan (1) Acute occlusion of artery of lower extremity Current Visit: Yes Status: Acute Priority: High Code(s): I74.3 - EMBOLISM AND THROMBOSIS OF ARTERIES OF THE LOWER EXTREMITIES SNOMED Code(s): 916807807 (2) Arterial atherosclerosis Current Visit: Yes Status: Acute Priority: High Code(s): I70.8 - ATHEROSCLEROSIS OF OTHER ARTERIES SNOMED Code(s): 605593827 (3) Hyperlipidemia Current Visit: Yes Status: Acute Priority: Medium Code(s): E78.5 - HYPERLIPIDEMIA, UNSPECIFIED SNOMED Code(s): 54031700 (4) Peripheral vascular disease Current Visit: Yes Status: Acute Priority: High Code(s): I73.9 - PERIPHERAL VASCULAR DISEASE, UNSPECIFIED SNOMED Code(s): 351145272 (5) SVT (supraventricular tachycardia) Current Visit: Yes Status: Acute Priority: High Code(s): I47.1 - SUPRAVENTRICULAR TACHYCARDIA SNOMED Code(s): 6316222 (6) Breast cancer, left Current Visit: No Status: Chronic Priority: Medium Code(s): C50.912 - MALIGNANT NEOPLASM OF UNSPECIFIED SITE OF LEFT FEMALE BREAST SNOMED Code(s): 638895251 Plan: Patient is hypotensive without symptoms and is tachycardic, patient reports decreased oral fluid intake and she was nothing by mouth postmidnight the night before for her procedure yesterday morning. I will give a trial of normal saline 250 mL bolus and monitor blood pressure and heart rate. If any improvement is noted then patient will be given cautious IV hydration and encouraged to drink oral fluids. I will keep her in the critical care area for now and reevaluate in next 12-24 hours. Patient will be given bowel softening medication to resolve her constipation. She will be continued on Pool Kreis and the complications are noted at this point. Rest of the medication for her chronic stable medical problems will be continued. Patient was seen by the cardiology and vascular surgical team and their recommendations and input kaylynn reciated. Time with Patient: Less than 30
[2019-04-28] MEDS ORDERED: DOCUSATE 100 MG CAP PO PRN (11:15)
--- NOTE | 2019-04-28 12:00 | P.PN ---
Subjective Progress Note Date: 04/28/19 Principal diagnosis: acute arterial thromboses and occlusion of a right lower extremity. This is a 78-year-old female with history of multiple medical problems including poliomyelitis, peripheral neuropathy, essential hypertension, hypothyroidism, breast cancer, chronic sciatica patient presented initially to the walk-in clinic with 1 week history of bluish and purple discoloration of the right foot. Patient could not experience any pain because of her underlying neuropathy she also noted a rash at the dorsal aspect of her foot. In the walk-in clinic, she was placed on antibiotics in the form of clindamycin orally. Patient called my office and was trying to set up an appointment for follow-up. However based on the clinical history over the phone, I suggested that she go to the emergency room. Patient came into the ER, and she was noted to have ischemic changes, and possible arterial thrombosis of the right lower extremity. Hence the patient was seen by vascular surgery on consultation, CT angiogram of her right lower extremity demonstrated absence of flow distal to the popliteal artery. Patient was started on heparin, then she was later found to have popliteal Doppler signal, and there was absent dorsalis pedis and posterior tibial signals. Then the patient underwent right lower extremity selective angiogram and placement of thrombolytic catheter with initiation of thrombi lysis via right common femoral artery antegrade access under ultrasound guidance. Thrombolyze his catheter was placed into the tibial peroneal trunk across the anterior tibial artery and thrombolytic infusion was initiated. This was kept overnight, and today the patient underwent another evaluation by vascular surgery, she had right lower extremity angiogram via existing catheter and cessation of thrombolytics. Postoperatively patient was sent back to the ICU. I saw the patient before going to the or, and she was basically asymptomatic. She did have cold and purplish feet, and diminished distal pulses. Reevaluated today on 04/28/2019, patient remains in the ICU, she is status post catheter directed thrombolytic lysis for right lower extremity arterial thrombosis and occlusion. Patient is feeling much better, her right foot seems to be warm today, and significant improvement in the bluish discoloration compared to yesterday. 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 Patient is doing great, feels much better today compared to yesterday.labs are normal, normal CBC and normal electrolytes noted.patient was placed on Eliquis for long-term treatment. Objective - Vital Signs Vital signs: Vital Signs Temp 97.5 F L 04/28/19 08:00 Pulse 118 H 04/28/19 10:00 Resp 19 04/28/19 10:00 BP 110/76 04/28/19 10:00 Pulse Ox 97 04/28/19 10:00 Intake & Output 04/27/19 04/28/19 04/28/19 18:59 06:59 18:59 Intake Total 275 220 80 Output Total 200 800 550 Balance 75 -580 -470 Weight 64 kg Intake: IV 275 220 80 KVO 200 220 80 Output: Urine 100 800 550 Emesis 100 0 0 Other: Voiding Method Bedpan Bedside Commode # Voids 1 0 1 - Exam Physical Exam: Revealed a 78-year-old female, in no distress, Head: Atraumatic, normocephalic. HEENT:[Neck is supple.] [No neck masses.] [No thyromegaly.] [No JVD.] Moist mucous membranes. Chest: [Clear throughout, no crackles, no rhonchi, no wheezes.] Cardiac Exam: [Normal S1 and S2, no S3 gallop, no murmur.] Abdomen: [Soft, nontender, no megaly, no rebound, no guarding, normal bowel sounds.] Extremities: Significant muscle atrophy and weakness noted in lower extremities especially on the right . both feet are noted to be warm, pinkish in color, pulses palpable. Neurological Exam: Alert and oriented 3. Right lower extremity is weak, and paralyzed. Lymphatics: No lymphadenopathy. Psychiatric: Normal mood affect and normal mental status examination. - Labs CBC & Chem 7: 04/28/19 04:16 04/28/19 04:16 Labs: Abnormal Lab Results - Last 24 Hours (Table) 04/28/19 Range/Units 04:16 RBC 3.63 L (3.80-5.40) m/uL Plt Count 146 L (150-450) k/uL Assessment and Plan Assessment: Impression: 1 acute occlusion of right tibial arteries, status post intra-arterial catheter thrombolysis by vascular surgery on 04/26/2019, significant improvement noted since her procedure. Patient is now on Eliquis. 2 multiple comorbidities including hypertension, post polio syndrome, breast cancer, dyslipidemia, hypothyroidism, Recommendation: transfer patient out of the intensive care unit, consider discharge planning in the next 24 hours. Follow-up on outpatient basis. Time with Patient: Less than 30
--- NOTE | 2019-04-28 12:13 | P.PN ---
Progress Note - Text Patient interviewed and examined History of atrial fibrillation History of atrial tachycardia with RVR Low blood pressure On low-dose beta blockers on account of this Starting digoxin 150 g by mouth daily today to improve rate control of atrial fibrillation Likely thromboembolic event secondary to atrial fibrillation, to the right lower extremity On imaging the superficial femoral artery is patent, there is three-vessel visualization below the knee with a more robust anterior tibial and peroneal arteries. There is a diminutive posterior tibial artery which is chronic appearing in nature no evidence of thrombus. All vessels are patent at the ankle. On ELIQUIS 5 g twice daily for prevention of embolism For now rate controlled atrial fibrillation atrial tachycardia and later after at least one month of anticoagulation then definitive management of atrial fibrillation with antiarrhythmic drug therapy but I would do a RO prior to any cardioversion even after one month of anticoagulation
[2019-04-28] MEDS: DIGOXIN 250 MCG TAB PO SCH (12:56)
[2019-04-28] MEDS: ALPRAZolam 0.5 MG TAB PO PRN ×3 (13:00→21:19)
[2019-04-28] MEDS: LETROZOLE 2.5 MG TAB PO SCH (19:13)
[2019-04-28] MEDS: SIMVASTATIN 20 MG PO SCH (21:19)
[2019-04-28] MEDS: METOPROLOL TARTRATE 25 MG TAB PO SCH (21:19)
[2019-04-29] MEDS: LEVOTHYROXINE 75 MCG TAB PO SCH (06:45)
--- NOTE | 2019-04-29 07:46 | P.PN ---
Subjective Progress Note Date: 04/29/19 Principal diagnosis: Paroxysmal atrial fibrillation This is a pleasant 78-year-old female patient with history of paroxysmal atrial fibrillation presented to the hospital with acute limb ischemia. She underwent an angiogram and infusion of thrombolytics. I'll follow-up with her today, overall she is feeling better. She is asymptomatic from a cardiovascular standpoint of view. She has been maintaining normal sinus mechanism. Currently she is on digoxin as well as metoprolol and she is on oral anticoagulation. Objective - Vital Signs Vital signs: Vital Signs Temp 97.8 F 04/28/19 23:00 Pulse 82 04/29/19 06:00 Resp 15 04/29/19 06:00 BP 98/76 04/29/19 00:00 Pulse Ox 91 L 04/28/19 23:00 Intake & Output 04/28/19 04/29/19 04/29/19 18:59 06:59 18:59 Intake Total 430 490 Output Total 1250 800 Balance -820 -310 Weight 63.6 kg Intake: IV 180 0 KVO 180 0 Intake, IV Titration 250 Amount Sodium Chloride 0.9% 500 250 ml 250 ml @ 999 mls/hr IV .Q16M ONE Rx#:[id number] Oral 490 Output: Urine 1250 800 Emesis 0 0 Other: Voiding Method Bedside Commode Bedside Commode # Voids 1 0 - Constitutional General appearance: Present: no acute distress - Labs CBC & Chem 7: 04/28/19 04:16 04/28/19 04:16 Assessment and Plan Assessment: Assessment #1 acute limb ischemia of the right lower extremity #2 paroxysmal atrial fibrillation Plan #1 continue the current medical regimen #2 follow-up with the patient
--- NOTE | 2019-04-29 08:14 | P.PN ---
Subjective Progress Note Date: 04/29/19 Patient seen and examined. Overall feeling better. Foot is warm, adequate capillary refill. Still no motion in the foot due to previous polio diagnosis. Right lower extremity ischemia status post thrombolytics History of polio No further vascular intervention. Continue neurovascular checks. Continue oral anticoagulation. Follow-up outpatient in 2-4 weeks. Please call with any further questions or concerns Objective - Vital Signs Vital signs: Vital Signs Temp 97.8 F 04/28/19 23:00 Pulse 82 04/29/19 06:00 Resp 15 04/29/19 06:00 BP 98/76 04/29/19 00:00 Pulse Ox 91 L 04/28/19 23:00 Intake & Output 04/28/19 04/29/19 04/29/19 18:59 06:59 18:59 Intake Total 430 490 Output Total 1250 800 Balance -820 -310 Weight 63.6 kg Intake: IV 180 0 KVO 180 0 Intake, IV Titration 250 Amount Sodium Chloride 0.9% 500 250 ml 250 ml @ 999 mls/hr IV .Q16M ONE Rx#:[id number] Oral 490 Output: Urine 1250 800 Emesis 0 0 Other: Voiding Method Bedside Commode Bedside Commode # Voids 1 0 - Labs CBC & Chem 7: 04/28/19 04:16 04/28/19 04:16
[2019-04-29] MEDS: PANTOPRAZOLE 40 MG TABLET PO SCH (08:29)
[2019-04-29] MEDS: DIGOXIN 250 MCG TAB PO SCH (08:29)
[2019-04-29] MEDS: APIXABAN 5 MG TAB PO SCH (08:29)
--- NOTE | 2019-04-29 08:33 | P.PN ---
Subjective Progress Note Date: 04/29/19 Principal diagnosis: Acute arterial thrombosis and occlusion of the right lower extremity This is a 78-year-old female with history of multiple medical problems including poliomyelitis, peripheral neuropathy, essential hypertension, hypothyroidism, breast cancer, chronic sciatica patient presented initially to the walk-in clinic with 1 week history of bluish and purple discoloration of the right foot. Patient could not experience any pain because of her underlying neuropathy she also noted a rash at the dorsal aspect of her foot. In the walk-in clinic, she was placed on antibiotics in the form of clindamycin orally. Patient called my office and was trying to set up an appointment for follow-up. However based on the clinical history over the phone, I suggested that she go to the emergency room. Patient came into the ER, and she was noted to have ischemic changes, and possible arterial thrombosis of the right lower extremity. Hence the patient was seen by vascular surgery on consultation, CT angiogram of her right lower extremity demonstrated absence of flow distal to the popliteal artery. Patient was started on heparin, then she was later found to have popliteal Doppler signal, and there was absent dorsalis pedis and posterior tibial signals. Then the patient underwent right lower extremity selective angiogram and placement of thrombolytic catheter with initiation of thrombi lysis via right common femoral artery antegrade access under ultrasound guidance. Thrombolyze his catheter was placed into the tibial peroneal trunk across the anterior tibial artery and thrombolytic infusion was initiated. This was kept overnight, and today the patient underwent another evaluation by vascular surgery, she had right lower extremity angiogram via existing catheter and cessation of thrombolytics. Postoperatively patient was sent back to the ICU. I saw the patient before going to the or, and she was basically asymptomatic. She did have cold and purp julita feet, and diminished distal pulses. Reevaluated today on 04/28/2019, patient remains in the ICU, she is status post catheter directed thrombolytic lysis for right lower extremity arterial thrombos is and occlusion. Patient is feeling much better, her right foot seems to be warm today, and significant improvement in the bluish discoloration compared to yesterday. 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 Patient is doing great, feels much better today compared to yesterday.labs are normal, normal CBC and normal electrolytes noted.patient was placed on Eliquis for long-term treatment. The patient is seen today 04/29/2019 in follow-up in the intensive care unit. She is awake and alert in no acute distress. On room air. No pain in the right lower extremity. She had undergone TPA treatment and the catheter was removed yesterday. She is now on Eliquis. Pulses are present. She is hoping to go home today. Objective - Vital Signs Vital signs: Vital Signs Temp 97.8 F 04/28/19 23:00 Pulse 82 04/29/19 06:00 Resp 15 04/29/19 06:00 BP 98/76 04/29/19 00:00 Pulse Ox 91 L 04/28/19 23:00 Intake & Output 04/28/19 04/29/19 04/29/19 18:59 06:59 18:59 Intake Total 430 490 Output Total 1250 800 Balance -820 -310 Weight 63.6 kg Intake: IV 180 0 KVO 180 0 Intake, IV Titration 250 Amount Sodium Chloride 0.9% 500 250 ml 250 ml @ 999 mls/hr IV .Q16M ONE Rx#:[id number] Oral 490 Output: Urine 1250 800 Emesis 0 0 Other: Voiding Method Bedside Commode Bedside Commode # Voids 1 0 - Exam GENERAL EXAM: Alert, active, comfortable in no apparent distress. On room air. HEAD: Normocephalic. EYES: Normal reaction of pupils, equal size. NOSE: Clear with pink turbinates. THROAT: No erythema or exudates. NECK: No masses, no JVD. CHEST: No chest wall deformity. LUNGS: Equal air entry with no crackles, wheeze, rhonchi or dullness. CVS: S1 and S2 normal with no audible murmur, regular rhythm. ABDOMEN: No hepatosplenomegaly, normal bowel sounds, no guarding or rigidity. SPINE: No scoliosis or deformity SKIN: No rashes CENTRAL NERVOUS SYSTEM: No focal deficits, tone is normal in all 4 extremities. EXTREMITIES: There is no peripheral edema. No clubbing, no cyanosis. Peripheral pulses are intact. - Labs CBC & Chem 7: 04/28/19 04:16 04/28/19 04:16 Assessment and Plan Assessment: Impression: 1 acute occlusion of right tibial arteries, status post intra-arterial catheter thrombolysis by vascular surgery on 04/26/2019, significant improvement noted since her procedure. Patient is now on Eliquis. 2 multiple comorbidities including hypertension, post polio syndrome, breast cancer, dyslipidemia, hypothyroidism, Recommendation: The patient was seen and evaluated by Dr. Bales. She is stable from the critical care standpoint. She is possibly being discharged home today. She'll follow up with Dr. Watts in our office in 1-2 weeks' time.
[2019-04-29 08:34] VITALS: BP 91/78; PULSE 120; RESP 23; TEMP 98
[2019-04-29] MEDS: traMADol 50 MG TAB PO PRN (09:21)
[2019-04-29] MEDS: GABAPENTIN 400 MG CAP PO SCH (09:22)
--- NOTE | 2019-04-29 12:54 | P.DS ---
Providers Date of admission: 04/26/19 17:58 Expected date of discharge: 04/29/19 Attending physician: Teto Badillo MD Consults: 04/26/19 17:57 Consult Physician Routine Consulting Provider: Rd Jim Consult Reason/Comments: arterial insufficiency Do you want consulting provider notified?: Yes 04/26/19 20:06 Consult Physician Routine Consulting Provider: Merrick Pike Consult Reason/Comments: SVT Do you want consulting provider notified?: Yes 04/27/19 03:52 Consult Physician Routine Consulting Provider: Albert Watts Consult Reason/Comments: ICU Do you want consulting provider notified?: Already Contacted Primary care physician: Albert Watts - Discharge Diagnosis(es) (1) Acute occlusion of artery of lower extremity Current Visit: Yes Status: Acute Priority: High (2) Arterial atherosclerosis Current Visit: Yes Status: Acute Priority: High (3) Hyperlipidemia Current Visit: Yes Status: Acute Priority: Medium (4) Peripheral vascular disease Current Visit: Yes Status: Acute Priority: High (5) SVT (supraventricular tachycardia) Current Visit: Yes Status: Acute Priority: High (6) Breast cancer, left Current Visit: No Status: Chronic Priority: Medium Hospital Course: This patient is a 78-year-old female with PMHx of polio, peripheral neuropathy, essential hypertension, dyslipidemia, hypothyroidism post radiation, chronic hip atrophy, chronic pain due to sciatica for which she takes tramadol who presented to the ER via private vehicle on with chief complaint of right lower extremity turning purple. the patient reports a purple right foot rash in the dorsal side of her foot extending up her distal tibia over the last week, the patient reports some burning sensation but thought nothing off it as she thought this was her neuropathy. Patient was admitted with acute arterial occlusion of the distal right femoral and right popliteal artery and its branches with concern for possible thromboembolic phenomenon. She was started on heparin GGT per protocol in the ER, will start aspirin, high-dose statin regimen of Lipitor. Cardiology and vascular surgery was consulted for further help in the management. Patient reported DO NOT RESUSCITATE/DO NOT INTUBATE at the time of admission. Patient underwent local TPA and after that follow-up angiogram showed resolution of the circulation to the right lower extremity. Patient pulse was monitored that was fairly consistently present. Her clindamycin was discontinued and patient was referred to physical therapy who recommended that patient is at baseline with all the equipment since support already available at home and can be discharged home. Today patient is doing much better clinically and pain is almost resolved she does have chronic sciatica pain for which she takes tramadol as needed and the she was cleared by cardiology and vascular surgery for discharge home. After the procedure she was noted to have the low-grade tachycardia at 120/m with a history of atrial flutters/fibrillation paroxysmal type and she was started on initially Lopressor without help but later on heart rate was better controlled with digoxin. Cardiology recommended follow-up with them in 2-4 weeks for possible RO and cardioversion if indicated. And vascular surgery wants to see the patient in 2 weeks post discharge in the office. Appointment will be made prior to discharge by the nurses. On physical examination patient vital seems to be normal but low blood pressure, which is usual for the patient. Her lungs are clear, heart is regular, abdomen soft bowel sound positive and peripheral pulses are positive with slight decrease in the lower extremity pulses. Lower extremities are nice and warm. Patient will be discharged home today with follow-ups and 3 new prescriptions for her anticoa gulation, heart rate control and constipation. Pertinent Studies: CT angiogram of the lower extremity was done on 04/26/2019 who reported as total occlusion of right distal femoral artery and right popliteal artery as well as as its branches. No flow is seen distal to left popliteal artery with than left lower extremity however this could be due to phase of contrast or diminutive flow. Circumferential mucosal thickening of the distal esophagus, endoscopy is recommended on nonemergent basis. Course liver attenuation and prominent gallbladder size was also reported. Procedures: #1 04/26/2019 right lower extremity selective angiogram and placement of thrombolytic catheter with any cessation of thrombolysis under ultrasound guidance. #2- 04/27/2019 - right lower extremity angiogram via existing catheter, cessation of thrombolytics. Patient Condition at Discharge: Fair Plan - Discharge Summary Discharge Rx Participant: Yes New Discharge Prescriptions: New Docusate [Colace] 100 mg PO DAILY PRN 30 Days #30 cap PRN Reason: Constipation Apixaban [Eliquis] 5 mg PO BID #30 tab Digoxin [Lanoxin] 250 mcg PO DAILY #30 tab Continue Simvastatin [Zocor] 20 mg PO HS ALPRAZolam [Xanax] 0.5 mg PO TID PRN PRN Reason: Anxiety traMADol HCL [Ultram] 50 mg PO Q6HR PRN PRN Reason: Pain Metoprolol Tartrate [Lopressor] 25 mg PO HS Levothyroxine Sodium [Synthroid] 75 mcg PO DAILY Gabapentin 800 mg PO TID Letrozole [Femara] 2.5 mg PO DAILY Discontinued Clindamycin HCl 300 mg PO TID Discharge Medication List ALPRAZolam [Xanax] 0.5 mg PO TID PRN 02/05/14 [History] Levothyroxine Sodium [Synthroid] 75 mcg PO DAILY 02/05/14 [History] Metoprolol Tartrate [Lopressor] 25 mg PO HS 02/05/14 [History] Simvastatin [Zocor] 20 mg PO HS 02/05/14 [History] traMADol HCL [Ultram] 50 mg PO Q6HR PRN 02/05/14 [History] Gabapentin 800 mg PO TID 09/09/14 [History] Letrozole [Femara] 2.5 mg PO DAILY 04/26/19 [History] Apixaban [Eliquis] 5 mg PO BID #30 tab 04/29/19 [Rx] Digoxin [Lanoxin] 250 mcg PO DAILY #30 tab 04/29/19 [Rx] Docusate [Colace] 100 mg PO DAILY PRN 30 Days #30 cap 04/29/19 [Rx] Follow up Appointment(s)/Referral(s): Albert Watts MD [Primary Care Provider] - 1 Week (Monday the at 2:30pm ) Ta Woods MD [STAFF PHYSICIAN] - 1 Week (May 03, 2019 at 11:30 with Doretha) Rd Jim DO [STAFF PHYSICIAN] - 2 Weeks Patient Instructions/Handouts: Coronary Artery Disease (DC), Peripheral Vascular Disease (DC), Peripheral Artery Disease (DC), Surgical Site Infections (DC) Discharge Disposition: HOME SELF-CARE
== END 2019-04-29 14:00 | disposition home or self-care (01) | DRG 300 ==
LOC: EC 14:34 → 3SCARD 17:58 → 2SICU 22:34
PROVIDERS: ADMIT Internal Medicine; ATTEND Internal Medicine
PROC: 3E05317 Introduction of Other Thrombolytic into Peripheral Artery, Percutaneous Approach (ICD-10-PCS; principal; 2019-04-26 21:30)
PROC: B41F1ZZ Fluoroscopy of Right Lower Extremity Arteries using Low Osmolar Contrast (ICD-10-PCS; 2019-04-26 21:30)
PROC: B41F1ZZ Fluoroscopy of Right Lower Extremity Arteries using Low Osmolar Contrast (ICD-10-PCS; 2019-04-27)
DX: I74.3 Embolism and thrombosis of arteries of the lower extremities (principal); I47.1 Supraventricular tachycardia; L03.115 Cellulitis of right lower limb; Z66 Do not resuscitate; I95.9 Hypotension, unspecified; G62.9 Polyneuropathy, unspecified; C50.912 Malignant neoplasm of unspecified site of left female breast; I48.0 Paroxysmal atrial fibrillation; I99.8 Other disorder of circulatory system; E16.2 Hypoglycemia, unspecified; B91 Sequelae of poliomyelitis; G83.11 Monoplegia of lower limb affecting right dominant side; I08.0 Rheumatic disorders of both mitral and aortic valves; E78.5 Hyperlipidemia, unspecified; E89.0 Postprocedural hypothyroidism; I10 Essential (primary) hypertension; I49.3 Ventricular premature depolarization; G89.29 Other chronic pain; M54.32 Sciatica, left side; K22.9 Disease of esophagus, unspecified; M62.551 Muscle wasting and atrophy, not elsewhere classified, right thigh; K59.00 Constipation, unspecified; F41.9 Anxiety disorder, unspecified; S80.861A Insect bite (nonvenomous), right lower leg, initial encounter; Z79.811 Long term (current) use of aromatase inhibitors; Z79.890 Hormone replacement therapy; Z79.899 Other long term (current) drug therapy; Z86.79 Personal history of other diseases of the circulatory system; Z88.1 Allergy status to other antibiotic agents; Z88.0 Allergy status to penicillin; Z88.2 Allergy status to sulfonamides; Z91.048 Other nonmedicinal substance allergy status; Z90.710 Acquired absence of both cervix and uterus; Z90.12 Acquired absence of left breast and nipple; Z98.890 Other specified postprocedural states; Z80.41 Family history of malignant neoplasm of ovary; Z80.0 Family history of malignant neoplasm of digestive organs; W57.XXXA Bitten or stung by nonvenomous insect and other nonvenomous arthropods, initial encounter
CPT/HCPCS: 36247; 36415; 37211; 37214; 75635; 75710; 76937; 80048; 80053; 83735; 83880; 84484; 85025; 85027; 85347; 85384; 85610; 85730; 93005; 93306; 96365; 96376; 99285

== ENCOUNTER 2019-05-07 13:36 | Emergency (ER) | payer MEDICARE ==
[2019-05-07 13:44] VITALS: TEMP 98
[2019-05-07] MEDS ORDERED: RX INFO: IV CONTRAST WAS GIVEN 1 EACH MISC MISCELLANE PRN (14:31)
[2019-05-07] MEDS ORDERED: SODIUM CHLORIDE 0.9% 500 ML 500 ML IV ONE (14:32)
--- NOTE | 2019-05-07 15:32 | ED ---
Extremity Problem HPI - General Chief complaint: Extremity Problem,Nontraumatic Stated complaint: R leg is swollen and purple sent by Time Seen by Provider: 05/07/19 14:20 Source: patient, RN notes reviewed Mode of arrival: wheelchair Limitations: no limitations - History of Present Illness Initial comments: This a 78-year-old female presents emergency Department from Dr. Duron was office chief complaint of right leg problems. Patient was admitted recently for arterial occlusion of her right leg. Patient procedure while in the hospital and states that symptoms were improving but states that she's noticed that she is increase swelling, purple discoloration and more cold to the touch. Patient states she has known vascular disease. Patient states that she still has some symptoms when she left the hospital. Patient denies any current went to chest pain or shortness of breath. Patient is currently on Eliquis. - Related Data Home Medications Medication Instructions Recorded Confirmed ALPRAZolam [Xanax] 0.5 mg PO TID PRN 02/05/14 05/07/19 Levothyroxine Sodium [Synthroid] 75 mcg PO DAILY 02/05/14 05/07/19 Metoprolol Tartrate [Lopressor] 25 mg PO HS 02/05/14 05/07/19 Simvastatin [Zocor] 20 mg PO HS 02/05/14 05/07/19 traMADol HCL [Ultram] 50 mg PO Q6HR PRN 02/05/14 05/07/19 Gabapentin 800 mg PO TID 09/09/14 05/07/19 Letrozole [Femara] 2.5 mg PO DAILY 04/26/19 05/07/19 Previous Rx's Medication Instructions Recorded Apixaban [Eliquis] 5 mg PO BID #30 tab 04/29/19 Digoxin [Lanoxin] 250 mcg PO DAILY #30 tab 04/29/19 Docusate [Colace] 100 mg PO DAILY PRN 30 Days #30 cap 04/29/19 Allergies Allergy/AdvReac Type Severity Reaction Status Date / Time adhesive Allergy Unknown Verified 05/07/19 14:22 amoxicillin trihydrate Allergy Unknown Verified 05/07/19 14:22 [From Augmentin] ciprofloxacin [From Cipro] Allergy Unknown Verified 05/07/19 14:22 ciprofloxacin HCl Allergy Unknown Verified 05/07/19 14:22 [From Cipro] clindamycin Allergy Anaphylaxis Verified 05/07/19 14:22 erythromycin base Allergy Unknown Verified 05/07/19 14:22 [Erythromycin Base] Macrolide Antibiotics Allergy Unknown Verified 05/07/19 14:22 Penicillins Allergy Unknown Verified 05/07/19 14:22 potassium clavulanate Allergy Unknown Verified 05/07/19 14:22 [From Augmentin] Sulfa (Sulfonamide Allergy Unknown Verified 05/07/19 14:22 Antibiotics) Review of Systems ROS Statement: Those systems with pertinent positive or pertinent negative responses have been documented in the HPI. ROS Other: All systems not noted in ROS Statement are negative. Past Medical History Past Medical History: Cancer, Hyperlipidemia, Hypertension, Thyroid Disorder Additional Past Medical History / Comment(s): ANXIETY, NEUROPATHY History of Any Multi-Drug Resistant Organisms: None Reported Past Surgical History: Breast Surgery, Hysterectomy, Tonsillectomy Additional Past Surgical History / Comment(s): LEG SURGERY, breast ca Past Anesthesia/Blood Transfusion Reactions: No Reported Reaction Past Psychological History: Anxiety Smoking Status: Never smoker Past Alcohol Use History: None Reported Past Drug Use History: None Reported - Past Family History Mother Family Medical History: Cancer Additional Family Medical History / Comment(s): ovarian Father Family Medical History: Cancer Additional Family Medical History / Comment(s): colon General Exam Limitations: no limitations General appearance: alert, in no apparent distress Head exam: Present: atraumatic, normocephalic, normal inspection Neck exam: Present: normal inspection. Absent: tenderness, meningismus, lymphadenopathy Respiratory exam: Present: normal lung sounds bilaterally. Absent: respiratory distress, wheezes, rales, rhonchi, stridor Cardiovascular Exam: Present: regular rate, normal rhythm, normal heart sounds. Absent: systolic murmur, diastolic murmur, rubs, gallop, clicks Extremities exam: Present: other (Right foot is cold to the touch, purplish, this is slightly blanchable Refill is sluggish unable to palpate pulses pulses were found with Doppler) Skin exam: Present: warm, dry, intact, normal color. Absent: rash Course Vital Signs 05/07/19 13:41 Temperature 98 F Pulse Rate 65 Respiratory 16 Rate Blood Pressure 108/66 O2 Sat by Pulse 98 Oximetry Medical Decision Making - Medical Decision Making 70-year-old female presented for cold feet, discoloration and unable to palpate pulses. Patient was evaluated by Dr. Scott was able to palpate, confirmed pulses discussed the case with Dr. Johnson who will follow the patient in office patient will be discharged. - Lab Data Result diagrams: 05/07/19 15:36 05/07/19 15:36 Lab Results 05/07/19 05/07/19 05/07/19 Range/Units 15:36 15:36 15:36 WBC 3.4 L (3.8-10.6) k/uL RBC 4.44 (3.80-5.40) m/uL Hgb 14.1 (11.4-16.0) gm/dL Hct 43.8 (34.0-46.0) % MCV 98.7 (80.0-100.0) fL MCH 31.8 (25.0-35.0) pg MCHC 32.2 (31.0-37.0) g/dL RDW 14.4 (11.5-15.5) % Plt Count 179 (150-450) k/uL Neutrophils % 58 % Lymphocytes % 30 % Monocytes % 7 % Eosinophils % 2 % Basophils % 1 % Neutrophils # 2.0 (1.3-7.7) k/uL Lymphocytes # 1.0 (1.0-4.8) k/uL Monocytes # 0.2 (0-1.0) k/uL Eosinophils # 0.1 (0-0.7) k/uL Basophils # 0.0 (0-0.2) k/uL PT 11.2 (9.0-12.0) sec INR 1.1 (<1.2) APTT 30.2 H (22.0-30.0) sec Sodium 139 (137-145) mmol/L Potassium 5.7 H (3.5-5.1) mmol/L Chloride 106 (98-107) mmol/L Carbon Dioxide 23 (22-30) mmol/L Anion Gap 10 mmol/L BUN 15 (7-17) mg/dL Creatinine 0.57 (0.52-1.04) mg/dL Est GFR (CKD-EPI)AfAm >90 (>60 ml/min/1.73 sqM) Est GFR (CKD-EPI)NonAf 89 (>60 ml/min/1.73 sqM) Glucose 82 (74-99) mg/dL Calcium 9.4 (8.4-10.2) mg/dL Total Bilirubin 1.0 (0.2-1.3) mg/dL AST 79 H (14-36) U/L ALT 46 (9-52) U/L Alkaline Phosphatase 79 (38-126) U/L Total Protein 7.2 (6.3-8.2) g/dL Albumin 4.3 (3.5-5.0) g/dL Disposition Clinical Impression: Peripheral vascular disease Disposition: HOME SELF-CARE Condition: Stable Instructions (If sedation given, give patient instructions): Peripheral Vascular Disease (ED) Additional Instructions: Please return to the Emergency Department if symptoms worsen or any other concerns. Is patient prescribed a controlled substance at d/c from ED?: No Referrals: Albert Watts MD [Primary Care Provider] - 1-2 days Time of Disposition: 16:42
[2019-05-07 15:48] LABS: Basophils % (A) 1 %; Eosinophils # (A) 0.1 k/uL (0-0.7); Eosinophils % (A) 2 %; HCT 43.8 % (34.0-46.0); HGB 14.1 gm/dL (11.4-16.0); Lymphocytes % (A) 30 %; MCH 31.8 pg (25.0-35.0); MCHC 32.2 g/dL (31.0-37.0); MCV 98.7 fL (80.0-100.0); Mean Platelet Volume 7.6; Monocytes # (A) 0.2 k/uL (0-1.0); Monocytes % (A) 7 %; Neutrophils % (A) 58 %; Platelet Count 179 k/uL (150-450); RBC 4.44 m/uL (3.80-5.40); RDW 14.4 % (11.5-15.5); WBC 3.4 k/uL (3.8-10.6)
[2019-05-07 15:55] LABS: INR 1.1 (<1.2); Partial Thromboplastin Time 30.2 sec (22.0-30.0); Prothrombin Time 11.2 sec (9.0-12.0)
[2019-05-07 15:58] LABS: ALT 46 U/L (9-52); AST 79 U/L (14-36); African American GFR (CKD) >90 (>60 ml/min/1.73 sqM); Albumin 4.3 g/dL (3.5-5.0); Alkaline Phosphatase 79 U/L (38-126); Anion Gap 10 mmol/L; Blood Urea Nitrogen 15 mg/dL (7-17); Calcium 9.4 mg/dL (8.4-10.2); Carbon Dioxide 23 mmol/L (22-30); Chloride 106 mmol/L (98-107); Glucose 82 mg/dL (74-99); Potassium 5.7 mmol/L (3.5-5.1); Sodium 139 mmol/L (137-145); Total Protein 7.2 g/dL (6.3-8.2)
[2019-05-07 17:37] VITALS: BP 114/66; PULSE 80; RESP 18
--- NOTE | 2019-05-07 18:11 | CONS ---
DATE OF CONSULTATION: 05/07/2019 This is a 78-year-old white female. The patient has a history of CA of the breast. The patient is under care of Dr. Duron. She noticed some swelling of the right lower extremity. The patient had a surgical intervention by vascular surgeon, Dr. Vickie Fajardo dated 04/26/2019. The patient was sent home and she was seen by their office last week. EXAMINATION: The patient was seen in the emergency room. Vital signs are stable. NECK: Supple. Trachea central. CHEST: Clear to auscultation. ABDOMEN: Soft. Femorals are 1+. Posterior tibial, dorsalis pedis by the Doppler. Normal motor function. At this point, there is no evidence of acute ischemia. I have discussed this case with Dr. Rd Jim. Patient will be sent home. Will followup in the office next week. MMODL / IJN: [id number] / MTDD
== END 2019-05-07 17:34 | disposition home or self-care (01) ==
LOC: EC 13:36
DX: I73.9 Peripheral vascular disease, unspecified (principal); I10 Essential (primary) hypertension; E78.5 Hyperlipidemia, unspecified; E07.9 Disorder of thyroid, unspecified; F41.9 Anxiety disorder, unspecified; G62.9 Polyneuropathy, unspecified; Z79.01 Long term (current) use of anticoagulants; Z79.890 Hormone replacement therapy; Z79.899 Other long term (current) drug therapy; Z91.048 Other nonmedicinal substance allergy status; Z88.0 Allergy status to penicillin; Z88.1 Allergy status to other antibiotic agents; Z88.2 Allergy status to sulfonamides; Z85.3 Personal history of malignant neoplasm of breast
CPT/HCPCS: 36415; 80053; 85025; 85610; 85730; 96360; 99284

== ENCOUNTER → 2020-03-31 | Outpatient (CLI) | payer MEDICARE ==
[2020-03-31 11:56] LABS: African American GFR (CKD) >90 (>60 ml/min/1.73 sqM); Blood Urea Nitrogen 16 mg/dL (7-17); Non-African American GFR(CKD) 88 (>60 ml/min/1.73 sqM)
--- NOTE | 2020-03-31 14:31 | CT ---
EXAMINATION TYPE: CT ChestAbdPelvis w con DATE OF EXAM: 03/31/2020 COMPARISON: CT abdomen 04/26/2019 HISTORY: 79-year-old female Breast cancer, weight loss. TECHNIQUE: Contiguous axial scanning of the chest, abdomen, and pelvis performed with IV Contrast, pa tient injected with 100 mL of Isovue M300. Delayed images through the kidneys were obtained. Coronal/ sagittal reconstructions performed. CT DLP: 592.7 mGycm Automated exposure control for dose reduction was used. FINDINGS: CHEST: Heart normal size without pericardial effusion. Three-vessel coronary artery calcifications are prese nt. Aorta normal caliber with mild arch calcifications and conventional arch vessel branching anatomy. No thoracic lymphadenopathy by CT size criteria. We note that the patient's right arm is down. There is degenerative change in both shoulders. 1 cm ca lcification at the left rotator cuff could reflect calcific tendinitis. Mild upper lung emphysema. There seems to be biapical pleural-parenchymal scarring but asymmetric jim ng the periphery of the left upper lobe with thickening measuring up to 1.4 cm, coronal image 47. No associated erosions of the overlying left-sided ribs. No consolidation or pleural effusion. Status post left mastectomy. Surgical clips in the left axilla. No abnormal mass seen along the chest wall or left axilla. ABDOMEN: Mild circumferential wall thickening distal esophagus. No focal liver lesion. Portal venous system is patent. No biliary ductal dilatation. Gallbladder borderline hydropic and 4.0 cm wide but without any surrounding inflammation or wall thic kening, likely due to fasting state. Mild diffuse thickening left adrenal gland without discrete nodularity. Tiny 5 mm lateral right renal cortical cyst. Left kidney, spleen, and pancreas otherwise show no gross abnormality. No dilated small bowel, free fluid, free air. No mesenteric or retroperitoneal lymphadenopathy. Moder ate stool burden. Normal appendix. No pericolonic inflammatory change. PELVIS: Bladder urine distended. Uterus and ovaries surgically absent. Pelvic phlebolith. No abnormal fluid c ollection in the pelvis or pelvic lymphadenopathy seen. BONES: Severe atrophy of the right hemipelvic and visualized right lower extremity musculature. End-stage de generative change left hip and moderate degenerative change right hip with some capsular thickening, unchanged from 04/26/2019. Dextroconvex scoliosis. No osseous destructive process seen. IMPRESSION: 1. STATUS POST LEFT MASTECTOMY AND LEFT AXILLARY NODE DISSECTION. THERE IS ASYMMETRIC PLEURAL PARENCH YMAL THICKENING AT THE LEFT APEX MEASURING UP TO 1.4 CM. ASYMMETRIC PLEURAL PARENCHYMAL SCARRING/POST TREATMENT CHANGE IS SUSPECTED. A 3 - 6 MONTH FOLLOW-UP CT RECOMMENDED TO ENSURE STABILITY AND EXCLUD E AN EARLY PLEURAL-BASED MASS. 2. MILD CIRCUMFERENTIAL WALL THICKENING DISTAL ESOPHAGUS. CORRELATE FOR ANY SYMPTOMS OF ESOPHAGITIS. 3. END-STAGE LEFT HIP OA. SEVERE ATROPHY OF THE RIGHT HEMIPELVIC AND VISUALIZED RIGHT LOWER EXTREMITY MUSCULATURE. QUERY ANY UNDERLYING PARESIS. A 1 CM CALCIFIC FOCUS AT THE LEFT ROTATOR CUFF MAY BE SEE N WITH CALCIFIC TENDINITIS. 4. MODERATE STOOL BURDEN.
== END | disposition home or self-care (01) ==
LOC: RADCTMAIN 10:59
PROVIDERS: ATTEND Internal Medicine Hematology & Oncology
DX: Z90.12 Acquired absence of left breast and nipple (principal); J92.9 Pleural plaque without asbestos; K22.8 Other specified diseases of esophagus; M16.12 Unilateral primary osteoarthritis, left hip; N81.84 Pelvic muscle wasting; C50.812 Malignant neoplasm of overlapping sites of left female breast; Z88.0 Allergy status to penicillin; Z88.1 Allergy status to other antibiotic agents; Z88.2 Allergy status to sulfonamides; Z88.6 Allergy status to analgesic agent
CPT/HCPCS: 82565; 84520; 71260; 74177; 36415; Q9967 ×2

== ENCOUNTER → 2020-05-18 | Outpatient (CLI) | payer MEDICARE ==
--- NOTE | 2020-05-18 18:29 | BD ---
EXAMINATION TYPE: Axial Bone Density DATE OF EXAM: 05/18/2020 COMPARISON: NONE CLINICAL HISTORY: 79-year-old female postmenopausal screening Height: 5 FT 7 IN Weight: 127 FRAX RISK QUESTIONS: Alcohol (3 or more units per day): NO Family History (Parent hip fracture): NO Glucocorticoids (More than 3mos): NO (Ex: prednisone, prednisolone, methylprednisolone, dexamethasone, and hydrocortisone). History of Fracture in Adulthood: NO Secondary Osteoporosis: 1. Type 1 Diabetes: NO 2. Hyperthyroidism: NO 3. Menopause before 45: TOTAL HYST AGE 40 4. Malnutrition: NO 5. Chronic liver disease: NO Rheumatoid Arthritis: NO Current Tobacco Use: NO RISK FACTORS HISTORY OF: Family History of Osteoporosis: NO Active: WHEEL CHAIR BOUND Postmenopausal woman: TOTAL HYST AGE 40 Take estrogen and/or progesterone medications: TOOK HRT FROM AGRE 40 -62 MEDICATIONS: Thyroid Medications: YES Which medication: LEVOTHYROXINE How Lon PLUS YEARS Additional Medications: SIMVASTATIN, DIGOXIN, FEMARA, METOPROLOL, GABAPENTIN,TRAMADOL, ELOQUIS, LEVOT HYROXINE Additional History: BREAST CANCER CHEMO AND RADIATION EXAM MEASUREMENTS: Bone mineral densitometry was performed using the [employer] System. Bone mineral density as measured about the Lumbar spine is: ----- L1-L4(G/cm2): 1.194 T Score Values are as follows: ----- L2: -0.3 ----- L3: -0.1 ----- L4: 0.7 ----- L1-L4: 0.1 Bone mineral density has: INCREASED 8.1 % since study of: 2016 Bone mineral density about the R hip (g/cm2): 0.680 Bone mineral density about the L hip (g/cm2): 0.806 T Score values are as follows: -----R Neck: -2.6 -----L Neck: -1.7 -----R Total: -2.9 -----L Total: -2.2 Bone mineral density has: INCREASED 3.8 % since study of: 2017 IMPRESSION: Osteoporosis (T Score less than -2.5). There is increased fracture risk and therapy is usually indicated based on age. Re-Screen 1-2 years. NOTE: T-SCORE=SD OF THE YOUNG ADULT MEAN.
--- NOTE | 2020-05-19 09:08 | MM ---
Reason for exam: additional evaluation requested from prior study. Last mammogram was performed 1 year and 4 months ago. History: Patient is postmenopausal, has history of breast cancer at age 73, and is nulliparous. Family history of breast cancer in maternal aunt and breast cancer in maternal cousin. Mastectomy of the left breast, December 2014. Malignant US biopsy breast VAD LT of the left breast, July 30, 2014. Malignant US biopsy breast VAD LT of the left breast, July 30, 2014. Took estrogen for 22 years 3 months. Physical Findings: Nurse did not find any significant physical abnormalities on exam. MG 3D Diag Mammo W/Cad RT CC and MLO view(s) were taken of the right breast. Prior study comparison: January 29, 2019, right breast MG diagnostic mammo RT w CAD. January 12, 2018, right breast MG 3d diag mammo w/cad RT. The breast tissue is extremely dense which could obscure a lesion on mammography. Posterior central nodular asymmetry was present in 2016. Medial asymmetric density was present previously as well. Very dense tissues. Ultrasound recommended. These results were verbally communicated with the patient and result sheet given to the patient on 05/18/20. ASSESSMENT: Incomplete: need additional imaging evaluation, BI-RAD 0 RECOMMENDATION: Ultrasound of the right breast.
--- NOTE | 2020-05-19 09:09 | USB ---
Reason for exam: additional evaluation requested from abnormal screening. History: Patient is postmenopausal, has history of breast cancer at age 73, and is nulliparous. Family history of breast cancer in maternal aunt and breast cancer in maternal cousin. Mastectomy of the left breast, December 2014. Malignant US biopsy breast VAD LT of the left breast, July 30, 2014. Malignant US biopsy breast VAD LT of the left breast, July 30, 2014. Took estrogen for 22 years 3 months. US Breast RT Technologist: Suyapa Mazariegos Right complete breast ultrasound includes all four quadrants, the retroareolar region and axilla. Finding demonstrates no cystic or solid lesion seen. Annual exam can be performed in a diagnostic clinic. These results were verbally communicated with the patient and result sheet given to the patient on 05/18/20. ASSESSMENT: Probably benign, BI-RAD 3 RECOMMENDATION: Follow-up diagnostic mammogram of the right breast in 1 year.
== END | disposition home or self-care (01) ==
LOC: RADMAMWWP 13:38
PROVIDERS: ATTEND Internal Medicine Hematology & Oncology
DX: M81.0 Age-related osteoporosis without current pathological fracture (principal); R92.8 Other abnormal and inconclusive findings on diagnostic imaging of breast; Z85.3 Personal history of malignant neoplasm of breast; Z90.12 Acquired absence of left breast and nipple
CPT/HCPCS: 77080; 77065; 76641; G0279; 77061

== ENCOUNTER → 2020-12-16 | Outpatient (CLI) | payer MEDICARE ==
--- NOTE | 2020-12-16 13:31 | CT ---
EXAMINATION TYPE: CT chest wo con DATE OF EXAM: 12/16/2020 COMPARISON: 03/31/2020 HISTORY: Follow up breast cancer. No complaints @ time of scan CT DLP: 184.[address] of the chest was performed with lung and mediastinal window settings submitted. The la ck of contrast limits evaluation of the vascular, mediastinal and parenchymal structures including th e upper abdomen. LUNGS: Pleural parenchymal thickening left upper lobe anteriorly related to radiation therapy change. There is no evidence for pulmonary nodule or mass. No pleural effusion. MEDIASTINUM/DIO: Thoracic aorta is of normal caliber with limited evaluation given lack of contrast . The heart is not enlarged. No evidence for mediastinal mass. No lymph nodes greater than 1cm. UPPER ABDOMEN: No significant abnormality is seen. OTHER: No significant other abnormality. IMPRESSION: 1. : Pleural parenchymal thickening left upper lobe anteriorly related to radiation therapy change. There is no evidence for pulmonary nodule or mass.
== END | disposition home or self-care (01) ==
LOC: RADCTMAIN 12:15
PROVIDERS: ATTEND Internal Medicine Hematology & Oncology
DX: R91.8 Other nonspecific abnormal finding of lung field (principal); C50.812 Malignant neoplasm of overlapping sites of left female breast; R63.4 Abnormal weight loss
CPT/HCPCS: 71250

== ENCOUNTER → 2021-05-19 | Outpatient (CLI) | payer MEDICARE ==
--- NOTE | 2021-05-20 10:23 | MM ---
Reason for exam: additional evaluation requested from prior study. Last mammogram was performed 1 year ago. History: Patient is postmenopausal, has history of breast cancer at age 73, and is nulliparous. Family history of breast cancer in maternal aunt and breast cancer in maternal cousin. Mastectomy of the left breast, December 2014. Malignant US biopsy breast VAD LT of the left breast, July 30, 2014. Malignant US biopsy breast VAD LT of the left breast, July 30, 2014. Took estrogen for 22 years 3 months. Physical Findings: Nurse did not find any significant physical abnormalities on exam. MG 3D Diag Mammo W/Cad RT CC and MLO view(s) were taken of the right breast. Prior study comparison: May 18, 2020, right breast MG 3d diag mammo w/cad RT. January 29, 2019, right breast MG diagnostic mammo RT w CAD. The breast tissue is extremely dense which could obscure a lesion on mammography. Nodule upper outer right breast 10cm from nipple. Ultrasound is recommended. These results were verbally communicated with the patient and result sheet given to the patient on 05/19/21. ASSESSMENT: Incomplete: need additional imaging evaluation, BI-RAD 0 RECOMMENDATION: Ultrasound of the right breast.
--- NOTE | 2021-05-20 10:24 | USB ---
Reason for exam: additional evaluation requested from abnormal screening. History: Patient is postmenopausal, has history of breast cancer at age 73, and is nulliparous. Family history of breast cancer in maternal aunt and breast cancer in maternal cousin. Mastectomy of the left breast, December 2014. Malignant US biopsy breast VAD LT of the left breast, July 30, 2014. Malignant US biopsy breast VAD LT of the left breast, July 30, 2014. Took estrogen for 22 years 3 months. US Breast Limited RT Right limited breast ultrasound including focal area of concern, retroareolar and axilla demonstrates no cystic or solid lesion seen. These results were verbally communicated with the patient and result sheet given to the patient on 05/19/21. ASSESSMENT: Probably benign, BI-RAD 3 RECOMMENDATION: Follow-up diagnostic mammogram of the right breast in 6 months.
== END | disposition home or self-care (01) ==
LOC: RADMAMWWP 12:37
PROVIDERS: ATTEND Internal Medicine Hematology & Oncology
DX: R92.2 Inconclusive mammogram (principal); Z80.3 Family history of malignant neoplasm of breast
CPT/HCPCS: 77065; 76642; G0279; 77061

== ENCOUNTER → 2021-11-26 | Outpatient (CLI) | payer MEDICARE ==
--- NOTE | 2021-11-26 14:46 | MM ---
Reason for exam: follow-up at short interval from prior study. Last mammogram was performed 6 months ago. History: Patient is postmenopausal, has history of breast cancer at age 73, and is nulliparous. Family history of breast cancer in maternal aunt and breast cancer in maternal cousin. Mastectomy of the left breast, December 2014. Malignant US biopsy breast VAD LT of the left breast, July 30, 2014. Malignant US biopsy breast VAD LT of the left breast, July 30, 2014. Took estrogen for 22 years 3 months. Physical Findings: A clinical breast exam by your physician is recommended on an annual basis and results should be correlated with mammographic findings. MG 3D Diag Mammo W/Cad RT CC and MLO view(s) were taken of the right breast. Prior study comparison: May 19, 2021, right breast MG 3d diag mammo w/cad RT. May 18, 2020, right breast MG 3d diag mammo w/cad RT. The breast tissue is extremely dense which could obscure a lesion on mammography. Benign calcifications. There is no discrete abnormality including area of concern. These results were verbally communicated with the patient and result sheet given to the patient on 11/26/21. ASSESSMENT: Benign, BI-RAD 2 RECOMMENDATION: Follow-up diagnostic mammogram of the right breast in 6 months. Back on schedule.
== END | disposition home or self-care (01) ==
LOC: RADMAMWWP 13:45
PROVIDERS: ATTEND Internal Medicine Hematology & Oncology
DX: R92.8 Other abnormal and inconclusive findings on diagnostic imaging of breast (principal); Z85.3 Personal history of malignant neoplasm of breast; Z78.0 Asymptomatic menopausal state; Z80.3 Family history of malignant neoplasm of breast
CPT/HCPCS: 77065; G0279; 77061

== ENCOUNTER → 2022-05-31 | Outpatient (CLI) | payer MEDICARE ==
--- NOTE | 2022-06-03 12:58 | BD ---
EXAMINATION TYPE: Axial Bone Density DATE OF EXAM: 05/31/2022 COMPARISON: NONE CLINICAL HISTORY: 81 years year old Female. ICD-10 CODE: C50.812 BREAST CA Height: 67 Weight: 130-APPROXIMATE, PT COULD NOT STAND ON SCALE FRAX RISK QUESTIONS: Alcohol (3 or more units per day): NO Family History (Parent hip fracture): NO Glucocorticoids (More than 3mos): NO History of Fracture in Adulthood: NO Secondary Osteoporosis: 1. Type 1 Diabetes: NO 2. Hyperthyroidism: NO 3. Menopause before 45: NO 4. Malnutrition: NO 5. Chronic liver disease: NO Rheumatoid Arthritis: NO Current Tobacco Use: NO RISK FACTORS HISTORY OF: Hip Fracture (Right/Left): NO Spine Fracture: NO History of Wrist Fracture: NO Surgery to Spine/Hip(right/left)/Wrist (right/left): NO Family History of Osteoporosis: MATERNAL AUNT Active: NO Diet low in dairy products/other sources of calcium: NO Postmenopausal woman: YES Take estrogen and/or progesterone medications: FEMARA How long: PAST 6 YEARS Lost more than 2 inches in height since high school: NO Frequent falls: NO Poor Health: NO Hyperparathyroidism: NO Adrenal Insufficiency: NO MEDICATIONS: Prednisone or other steroids: NO Thyroid Medications: SYNTHROID How Long: PAST 30 YEARS Osteoporosis Medications: RECLAST How Long: PAST 3 YEARS Additional Medications: SIMVASTATIN, METROPROLOL, SYNTHROID, FEMORA, RECLAST, ELIQUIS, VIT D Additional History: BREAST CA. 2016, NON-WEIGHT BEARING, RT SIDE DEFORMITY EXAM MEASUREMENTS: Bone mineral densitometry was performed using the [employer] System. Bone mineral density as measured about the Lumbar spine is: ----- L1-L4(G/cm2): 1.156 T Score Values are as follows: ----- L1: -1.0 ----- L2: -0.7 ----- L3: -0.2 ----- L4: 0.5 ----- L1-L4: -0.2 Bone mineral density has: INCREASED 5.5 % since study of: 06/02/2017 Bone mineral density about the R hip (g/cm2): 0.000 Bone mineral density about the L hip (g/cm2): 0.846 T Score values are as follows: -----R Neck: DEFORMITY -----L Neck: -1.4 -----R Total: DEFORMITY -----L Total: -1.9 FRAX%s: The graph provided illustrates a 11.2% chance for a major osteoporotic fx and a 2.9% chance f or the hips probability for fx in 10 years time. IMPRESSION: Osteopenia (T Score between -2.5 and -1). There is slightly increased risk of fracture and the patient may be considered for treatment. Re-Screen 2-5 years. NOTE: T-SCORE=SD OF THE YOUNG ADULT MEAN.
== END | disposition home or self-care (01) ==
LOC: RADMAMWWP 20:15
PROVIDERS: ATTEND Internal Medicine Hematology & Oncology
DX: M85.89 Other specified disorders of bone density and structure, multiple sites (principal); Z78.0 Asymptomatic menopausal state; Z85.3 Personal history of malignant neoplasm of breast
CPT/HCPCS: 77080; 77065; G0279; 77061

== ENCOUNTER → 2023-08-25 | Outpatient (CLI) | payer MEDICARE ==
--- NOTE | 2023-08-25 15:12 | MM ---
Reason for Exam: Additional evaluation requested from prior study. Last mammogram was performed 1 year(s) and 3 month(s) ago. Patient History: Menarche at age 13. Patient has no children. Left ovary removed at age 40. Right ovary removed at age 40. Hysterectomy at age 40. Postmenopausal. Breast cancer, age 73. Estrogen for 22 years, 3 months, until age 64. 12/2014, Mastectomy on the Left side. 07/30/2014, Malignant Core Biopsy on the left side. 07/30/2014, Malignant Core Biopsy on the left side. Maternal cousin had breast cancer. Maternal aunt had breast cancer. Prior Study Comparison: 05/19/2021 Right Diagnostic Mammogram, [facility]. 11/26/2021 Right Diagnostic Mammogram, [facility]. 05/31/2022 Right MG 3D diag mammo w/cad RT, [facility]. Tissue Density: Right: The breast tissue is extremely dense which could obscure a lesion on mammography. Findings: Analyzed By CAD. No new suspicious masses, calcifications or distortions. Overall Assessment: Negative, BI-RAD 1 Management: Screening Mammogram of the right breast in 1 year. Results were given to the patient verbally at the time of exam. Patient should continue monthly self-breast exams. A clinical breast exam by your physician is recommended on an annual basis. This exam should not preclude additional follow-up of suspicious palpable abnormalities. Note on Tania scores and lifetime risk: 1. A Tania score greater than 3% is considered moderate risk. If this is the case, consider specialist referral to assess eligibility for a risk reducing agent. 2. If overall lifetime risk for the development of breast cancer is 20% or higher, the patient may qualify for future screening with alternating mammogram and breast MRI. Electronically signed and approved by: Kumar Santos DO
== END | disposition home or self-care (01) ==
LOC: RADMAMWWP 14:47
PROVIDERS: ATTEND Internal Medicine Hematology & Oncology
DX: Z12.31 Encounter for screening mammogram for malignant neoplasm of breast (principal); Z85.3 Personal history of malignant neoplasm of breast; Z78.0 Asymptomatic menopausal state; Z80.3 Family history of malignant neoplasm of breast; Z90.12 Acquired absence of left breast and nipple
CPT/HCPCS: 77065; G0279; 77061

== ENCOUNTER → 2024-08-26 | Outpatient (CLI) | payer MEDICARE ==
--- NOTE | 2024-08-26 14:23 | BD ---
EXAMINATION TYPE: Axial Bone Density DATE OF EXAM: 08/26/2024 CLINICAL HISTORY: 83 years old Female. ICD-10 CODE: M81.0 AGE-RELATED OSTEOPOROSIS , Additional Hist ory: Height: 67 Weight: 130 approximate FRAX RISK QUESTIONS: Secondary Osteoporosis: RISK FACTORS HISTORY OF: MEDICATIONS: Thyroid Medications: Which medication: Levothyroxine How Long: over 30 years Osteoporosis Medications: Which medication: none currently How Long: EXAM MEASUREMENTS: Bone mineral densitometry was performed using the Tamion System. Bone mineral density as measured about the Lumbar spine is: ----- L1-L4(G/cm2): 1.136 T Score Values are as follows: ----- L1: -0.9 ----- L2: -0.9 ----- L3: -0.5 ----- L4: 0.3 ----- L1-L4: -0.4 Z Score Values are as follows: ----- L1: 1.2 ----- L2: 1.2 ----- L3: 1.6 ----- L4: 2.4 ----- L1-L4: 1.7 Bone mineral density has: Decreased -1.7% since study of: 05-31-22 Bone mineral density about the R hip (g/cm2): 0.260 Bone mineral density about the L hip (g/cm2): 0.780 T Score values are as follows: -----R Neck: -5.4 -----L Neck: -0.8 -----R Total: -5.9 -----L Total: -1.8 Z Score values are as follows: -----R Neck: -2.9 -----L Neck: 1.7 -----R Total: -3.6 -----L Total: 0.5 Bone mineral density has: Decreased -59.8% since study of: 05-31-22 FRAX%s: The graph provided illustrates a 53.1% chance for a major osteoporotic fx and a 38.3% chance for the hips probability for fx in 10 years time. IMPRESSION: Osteoporosis (T Score less than -2.5). There is increased fracture risk and therapy is usually indicated based on age. Re-Screen 1-2 years. NOTE: T-SCORE=SD OF THE YOUNG ADULT MEAN. [facility], , 08/26/2024 2:21 PM
--- NOTE | 2024-08-27 12:48 | MM ---
Reason for Exam: Screening (asymptomatic). Last screening mammogram was performed 12 month(s) ago. Patient History: Menarche at age 13. Patient has no children. Left ovary removed at age 40. Right ovary removed at age 40. Hysterectomy at age 40. Postmenopausal. Breast cancer, left, age 73. Estrogen for 22 years, 3 months, until age 64. 12/2014, Mastectomy on the Left side. 07/30/2014, Malignant Core Biopsy on the left side. 07/30/2014, Malignant Core Biopsy on the left side. Maternal cousin had breast cancer. Maternal aunt had breast cancer. Prior Study Comparison: 11/26/2021 Right Diagnostic Mammogram, [facility]. 05/31/2022 Right MG 3D diag mammo w/cad RT, [facility]. 08/25/2023 Right MG 3D diag mammo w/cad RT, [facility]. Tissue Density: Right: The breasts are heterogeneously dense, which may obscure small masses. Findings: Right breast: There is no suspicious group of microcalcifications or new suspicious mass. Benign-appearing calcifications right breast. Overall Assessment: Benign, BI-RAD 2 Management: Screening Mammogram of both breasts in [address] [facility] will attempt to contact patient to return for supplemental views and ultrasound if indicated. Patient should continue monthly self-breast exams. A clinical breast exam by your physician is recommended on an annual basis. This exam should not preclude additional follow-up of suspicious palpable abnormalities. Note on Tania scores and lifetime risk: 1. A Tania score greater than 3% is considered moderate risk. If this is the case, consider specialist referral to assess eligibility for a risk reducing agent. 2. If overall lifetime risk for the development of breast cancer is 20% or higher, the patient may qualify for future screening with alternating mammogram and breast MRI. [facility], , 08/27/2024 12:18 PM. Electronically signed and approved by: Kumar Santos DO
== END | disposition home or self-care (01) ==
LOC: RADMAMWWP 11:52
PROVIDERS: ATTEND Internal Medicine Hematology & Oncology
DX: Z12.31 Encounter for screening mammogram for malignant neoplasm of breast (principal); R92.333 Mammographic heterogeneous density, bilateral breasts; C50.812 Malignant neoplasm of overlapping sites of left female breast; M81.0 Age-related osteoporosis without current pathological fracture; M15.9 Polyosteoarthritis, unspecified; Z78.0 Asymptomatic menopausal state; Z71.0 Person encountering health services to consult on behalf of another person; Z80.3 Family history of malignant neoplasm of breast; Z90.722 Acquired absence of ovaries, bilateral
CPT/HCPCS: 77067; 77080

== ENCOUNTER 2025-02-04 13:09 | Inpatient (IN) | payer MEDICARE ==
--- NOTE | 2025-02-04 13:39 | ED ---
General Adult HPI - General Chief complaint: Fall Stated complaint: fall Time Seen by Provider: 02/04/25 13:15 Source: patient, EMS, RN notes reviewed, old records reviewed Mode of arrival: EMS Limitations: no limitations - History of Present Illness Initial comments: This is an 84-year-old female who presents to the emergency department stating that she slid off the ramp while she was in a seated chair on wheels and fell over 2 days ago. Patient states her right hip hurts patient states she normally does not ambulate. Patient denies hitting her head or neck. Patient Nuys hitting her chest or back per patient Nuys any upper extremity pain. Patient states she only has pain in the right hip area. - Related Data Home Medications Medication Instructions Recorded Confirmed ALPRAZolam [Xanax] 0.5 mg PO TID PRN 02/05/14 11/28/22 Levothyroxine Sodium [Synthroid] 75 mcg PO DAILY 02/05/14 11/28/22 Metoprolol Tartrate [Lopressor] 25 mg PO HS 02/05/14 11/28/22 Simvastatin [Zocor] 20 mg PO HS 02/05/14 11/28/22 traMADol HCL [Ultram] 50 mg PO QID@03,09,15,21 02/05/14 11/28/22 Gabapentin 800 mg PO TID@0900,1500,2100 09/09/14 11/28/22 Letrozole [Femara] 2.5 mg PO DAILY 04/26/19 11/28/22 Digoxin [Digitek] 125 mcg PO DAILY 11/28/22 11/28/22 Previous Rx's Medication Instructions Recorded Apixaban [Eliquis] 5 mg PO BID #30 tab 04/29/19 Allergies Allergy/AdvReac Type Severity Reaction Status Date / Time adhesive Allergy Unknown Verified 11/28/22 14:20 amoxicillin trihydrate Allergy Unknown Verified 11/28/22 14:20 [From Augmentin] ciprofloxacin [From Cipro] Allergy Unknown Verified 11/28/22 14:20 ciprofloxacin HCl Allergy Unknown Verified 11/28/22 14:20 [From Cipro] clindamycin Allergy Anaphylaxis Verified 11/28/22 14:20 erythromycin base Allergy Unknown Verified 11/28/22 14:20 [Erythromycin Base] Macrolide Antibiotics Allergy Unknown Verified 11/28/22 14:20 Penicillins Allergy Unknown Verified 11/28/22 14:20 potassium clavulanate Allergy Unknown Verified 11/28/22 14:20 [From Augmentin] Sulfa (Sulfonamide Allergy Unknown Verified 11/28/22 14:20 Antibiotics) Review of Systems ROS Statement: Those systems with pertinent positive or pertinent negative responses have been documented in the HPI. ROS Other: All systems not noted in ROS Statement are negative. Past Medical History Past Medical History: Cancer, Hyperlipidemia, Hypertension, Thyroid Disorder Additional Past Medical History / Comment(s): ANXIETY, NEUROPATHY History of Any Multi-Drug Resistant Organisms: None Reported Past Surgical History: Breast Surgery, Hysterectomy, Tonsillectomy Additional Past Surgical History / Comment(s): LEG SURGERY, breast ca Past Anesthesia/Blood Transfusion Reactions: No Reported Reaction Past Psychological History: Anxiety Smoking Status: Never smoker Past Alcohol Use History: None Reported Past Drug Use History: None Reported - Past Family History Mother Family Medical History: Cancer Additional Family Medical History / Comment(s): ovarian Father Family Medical History: Cancer Additional Family Medical History / Comment(s): colon General Exam - General Exam Comments Initial Comments: GENERAL: Patient is well-developed and well-nourished. Patient is nontoxic and well- hydrated and is in mild distress. ENT: Neck is soft and supple. No significant lymphadenopathy is noted. Oropharynx is clear. Moist mucous membranes. Neck has full range of motion without eliciting any pain. EYES: The sclera were anicteric and conjunctiva were pink and moist. Extraocular movements were intact and pupils were equal round and reactive to light. Eyelids were unremarkable. PULMONARY: Unlabored respirations. Good breath sounds bilaterally. No audible rales rhonchi or wheezing was noted. CARDIOVASCULAR: There is a regular rate and rhythm without any murmurs gallops or rubs. ABDOMEN: Soft and nontender with normal bowel sounds. SKIN: Skin is clear with no lesions or rashes and otherwise unremarkable. NEUROLOGIC: Patient is alert and oriented x3. Cranial nerves II through XII are grossly intact. MUSCULOSKELETAL: Has pain with flexion at the hip or external rotation of the hip on the right. LYMPHATICS: No significant lymphadenopathy is noted PSYCHIATRIC: Normal psychiatric evaluation. Limitations: no limitations Course Vital Signs 02/04/25 02/04/25 13:14 14:28 Temperature 98.1 F 98.1 F Pulse Rate 79 100 Respiratory 20 18 Rate Blood Pressure 99/64 99/64 O2 Sat by Pulse 95 96 Oximetry Medical Decision Making - Medical Decision Making EKG is interpreted by myself and EKG shows atrial fibrillation at 82 bpm QRS is 97 QT interval 368 QTc is 406. Patient has occasional PVC Was pt. sent in by a medical professional or institution (STACEY Riojas, [employer], urgent care, hospital, or custodial...) When possible be specific @ -No Did you speak to anyone other than the patient for history (EMS, parent, family, police, friend...)? What history was obtained from this source @ -No Did you review nursing and triage notes (agree or disagree)? Why? @ -I reviewed and agree with nursing and triage notes Were old charts reviewed (outside hosp., previous admission, EMS record, old EKG, old radiological studies, urgent care reports/EKG's, custodial records)? Report findings @ -No old charts were reviewed Differential Diagnosis? @ -Differential Musculoskeletal Muscular strain, contusion, ligament sprain, fracture, arthritis, septic arthritis, bursitis, cellulitis, muscle spasm, nerve compression, DVT, arterial occlusion, herpes zoster, electrolyte abnormality, tumor.... This is not meant to be in all inclusive list EKG interpreted by me (3pts min.). @ -As above X-rays interpreted by me (1pt min.). @ -X-ray of the pelvis and hip shows a right acetabular fracture CT interpreted by me (1pt min.). @ -None done U/S interpreted by me (1pt. min.). @ -None done What testing was considered but not performed or refused? (CT, X-rays, U/S, labs)? Why? @ -None What meds were considered but not given or refused? Why? @ -None Did you discuss the management of the patient with other professionals (professionals i.e. STACEY Riojas, [employer], lab, RT, psych nurse, social media project manager, monitoring and evaluation advisor, teacher, driver license reviewing officer, case investigator)? Give summary @ -I spoke with Haley for Dr. Zhang and he agreed to accept admission and medicine be consulted for probable placement in a custodial Was smoking cessation discussed for >3mins.? @ -No Was critical care preformed (if so, how long)? @ -No Were there social determinants of health that impacted care today? How? ( Homelessness, low income, unemployed, alcoholism, drug addiction, transportation, low edu. Level, literacy, decrease access to med. care, mcc, rehab)? @ -No Was there de-escalation of care discussed even if they declined (Discuss DNR or withdrawal of care, Hospice)? DNR status @ -No What co-morbidities impacted this encounter? (DM, HTN, Smoking, COPD, CAD, Cancer, CVA, ARF, Chemo, Hep., AIDS, mental health diagnosis, sleep apnea, morbid obesity)? @ -None Was patient admitted / discharged? Hospital course, mention meds given and route, prescriptions, significant lab abnormalities, going to OR and other pertinent info. @ -Patient has a acetabular fracture and would be admitted to Ortho with a consult to medicine Undiagnosed new problem with uncertain prognosis? @ -No Drug Therapy requiring intensive monitoring for toxicity (Heparin, Nitro, Insulin, Cardizem)? @ -No Were any procedures done? @ -No Diagnosis/symptom? @ -Acetabular fracture Acute, or Chronic, or Acute on Chronic? @ -Acute Uncomplicated (without systemic symptoms) or Complicated (systemic symptoms)? @ -Complicated Side effects of treatment? @ -No Exacerbation, Progression, or Severe Exacerbation? @ -No Poses a threat to life or bodily function? How? (Chest pain, USA, HI, pneumonia, PE, COPD, DKA, ARF, appy, cholecystitis, CVA, Diverticulitis, Homicidal, Suicidal, threat to staff... and all critical care pts) @ -No - Lab Data Result diagrams: 02/04/25 15:15 02/04/25 15:15 Lab Results 02/04/25 02/04/25 02/04/25 Range/Units 14:59 15:15 15:15 WBC 6.34 (4.50-10.00) 10*3/uL RBC 3.89 L (4.10-5.20) 10*6/uL Hgb 13.0 (12.0-15.0) g/dL Hct 37.7 (37.2-46.3) % MCV 96.9 (80.0-97.0) fL MCH 33.4 H (27.0-32.0) pg MCHC 34.5 (32.0-37.0) g/dL Plt Count 151 (140-440) 10*3/uL MPV 11.0 (9.5-12.2) fL Immature Gran % (Auto) 0.5 % Neutrophils % 72.8 % Lymphocytes % 14.4 % Monocytes % 11.5 % Eosinophils % 0.5 % Basophils % 0.3 % Immature Gran # 0.03 (0.00-0.04) 10*3/uL Neutrophils # 4.62 (1.80-7.70) 10*3/uL Lymphocytes # 0.91 (0.90-5.00) 10*3/uL Monocytes # 0.73 (0.20-1.00) 10*3/uL Eosinophils # 0.03 L (0.04-0.35) 10*3/uL Basophils # 0.02 (0.00-0.10) 10*3/uL PT 12.4 (10.0-12.5) sec INR 1.1 (<1.2) APTT 22.6 (22.0-30.0) sec Sodium 137 (137-145) mmol/L Potassium 4.2 (3.5-5.1) mmol/L Chloride 102 (98-107) mmol/L Carbon Dioxide 26 (22-30) mmol/L Anion Gap 9 mmol/L BUN 27 H (7-17) mg/dL Creatinine 0.53 (0.52-1.04) mg/dL Est GFR (CKD-EPI)AfAm >90 (>60 ml/min/1.73 sqM) Est GFR (CKD-EPI)NonAf 88 (>60 ml/min/1.73 sqM) Glucose 98 (74-99) mg/dL Calcium 9.5 (8.4-10.2) mg/dL Total Bilirubin 1.5 H (0.2-1.3) mg/dL AST 54 H (14-36) U/L ALT 31 (4-34) U/L Alkaline Phosphatase 73 (38-126) U/L Total Protein 5.8 L (6.3-8.2) g/dL Albumin 3.4 L (3.5-5.0) g/dL Disposition Clinical Impression: Fall, Acetabular fracture Disposition: ADMITTED IP TO THIS [facility] Referrals: Tino Andrea MD [Primary Care Provider] - 1-2 days Time of Disposition: 16:13
--- NOTE | 2025-02-04 14:10 | XR ---
EXAMINATION TYPE: XR chest 1V portable DATE OF EXAM: 02/04/2025 1:46 PM COMPARISON: 01/16/2017 CLINICAL INDICATION: Female, 84 years old with history of Short of breath, , FINDINGS: Heart is moderately enlarged. Hyperinflation. Interstitial density atherosclerotic arch calcification s. New focal left apical opacity. Surgical clips left axilla. No pleural effusion. IMPRESSION: 1. New moderate cardiomegaly. This could be due to cardiac enlargement and/or underlying pericardial effusion. 2. Background COPD. 3. New focal left apical opacity could represent pneumonia. Follow-up after treatment to exclude an u nderlying neoplasm. [facility], , 02/04/2025 2:08 PM
--- NOTE | 2025-02-04 14:13 | XR ---
EXAMINATION TYPE: XR Hip 2 views RT and AP Pelvis DATE OF EXAM: 02/04/2025 1:46 PM COMPARISON: None CLINICAL INDICATION: Female, 84 years old with history of Fall; PHH, pain FINDINGS: Limited by patient positioning and marked osteopenia. There is moderate to severe degenerative change at the left hip axial joint space loss and prominent collar osteophytes at the femoral head neck wm ction. At least mild degenerative change at the right hip. There is a comminuted fracture involving the righ t acetabulum with extension to involve the right superior pubic ramus. Right inferior pubic ramus is probably also involved. IMPRESSION: 1. Limited by patient positioning and marked osteopenia. There is a comminuted right acetabular fract ure with extension to involve the right pubic rami. 2. Moderate to severe left hip and at least moderate right hip OA. [facility], Workstation: [facility], 02/04/2025 2:10 PM
[2025-02-04 15:25] LABS: Basophils # (A) 0.02 10*3/uL (0.00-0.10); Basophils % (A) 0.3 %; Eosinophils # (A) 0.03 10*3/uL (0.04-0.35); Eosinophils % (A) 0.5 %; HCT 37.7 % (37.2-46.3); Lymphocytes # (A) 0.91 10*3/uL (0.90-5.00); Lymphocytes % (A) 14.4 %; MCH 33.4 pg (27.0-32.0); MCHC 34.5 g/dL (32.0-37.0); MCV 96.9 fL (80.0-97.0); Monocytes # (A) 0.73 10*3/uL (0.20-1.00); Monocytes % (A) 11.5 %; Neutrophils # (A) 4.62 10*3/uL (1.80-7.70); Neutrophils % (A) 72.8 %; Platelet Count 151 10*3/uL (140-440); RBC 3.89 10*6/uL (4.10-5.20); WBC 6.34 10*3/uL (4.50-10.00)
[2025-02-04 15:32] LABS: ALT 31 U/L (4-34); AST 54 U/L (14-36); African American GFR (CKD) >90 (>60 ml/min/1.73 sqM); Albumin 3.4 g/dL (3.5-5.0); Alkaline Phosphatase 73 U/L (38-126); Anion Gap 9 mmol/L; Blood Urea Nitrogen 27 mg/dL (7-17); Calcium 9.5 mg/dL (8.4-10.2); Carbon Dioxide 26 mmol/L (22-30); Chloride 102 mmol/L (98-107); Glucose 98 mg/dL (74-99); Non-African American GFR(CKD) 88 (>60 ml/min/1.73 sqM); Potassium 4.2 mmol/L (3.5-5.1); Sodium 137 mmol/L (137-145); Total Bilirubin 1.5 mg/dL (0.2-1.3); Total Protein 5.8 g/dL (6.3-8.2)
[2025-02-04 15:36] LABS: INR 1.1 (<1.2); Partial Thromboplastin Time 22.6 sec (22.0-30.0); Prothrombin Time 12.4 sec (10.0-12.5)
[2025-02-04] MEDS: SODIUM CHLORIDE 0.9% 1,000 ML IV ONE (16:34)
[2025-02-04] MEDS: HYDROmorphone 0.5 MG/0.5 ML SYRINGE IVP PRN (16:41)
[2025-02-04] MEDS ORDERED: IPRATROPIUM BROMIDE 0.06% NASAL SPRAY (15 ML) EA NOSTRIL PRN (19:50)
[2025-02-04] MEDS ORDERED: ONDANSETRON 4 MG/2 ML VIAL IVP PRN (19:51)
[2025-02-04] MEDS: SODIUM CHLORIDE 0.9% 500 ML 500 ML IV ONE (21:35)
[2025-02-04] MEDS: APIXABAN 5 MG TAB PO SCH (21:42)
[2025-02-04] MEDS: GABAPENTIN 400 MG CAP PO SCH ×2 (21:42)
[2025-02-04] MEDS: traMADol 50 MG TAB PO SCH (21:42)
[2025-02-04] MEDS: LETROZOLE 2.5 MG TAB PO STA (22:14)
[2025-02-05 03:48] LABS: Basophils # (A) 0.02 10*3/uL (0.00-0.10); Basophils % (A) 0.3 %; Eosinophils # (A) 0.06 10*3/uL (0.04-0.35); HCT 37.5 % (37.2-46.3); Lymphocytes # (A) 0.79 10*3/uL (0.90-5.00); Lymphocytes % (A) 13.8 %; MCH 33.3 pg (27.0-32.0); MCHC 34.7 g/dL (32.0-37.0); MCV 96.2 fL (80.0-97.0); Mean Platelet Volume 11.3 fL (9.5-12.2); Monocytes # (A) 0.79 10*3/uL (0.20-1.00); Monocytes % (A) 13.8 %; Neutrophils # (A) 4.05 10*3/uL (1.80-7.70); Neutrophils % (A) 70.8 %; WBC 5.73 10*3/uL (4.50-10.00)
[2025-02-05 03:52] LABS: Platelet Count 115 10*3/uL (140-440)
[2025-02-05 04:03] LABS: ALT 30 U/L (4-34); African American GFR (CKD) >90 (>60 ml/min/1.73 sqM); Albumin 2.9 g/dL (3.5-5.0); Albumin/Globulin Ratio 1.2; Anion Gap 8 mmol/L; Blood Urea Nitrogen 25 mg/dL (7-17); Calcium 8.9 mg/dL (8.4-10.2); Carbon Dioxide 23 mmol/L (22-30); Chloride 104 mmol/L (98-107); Globulin 2.4 g/dL; Glucose 99 mg/dL (74-99); Non-African American GFR(CKD) >90 (>60 ml/min/1.73 sqM); Sodium 135 mmol/L (137-145); Total Bilirubin 1.2 mg/dL (0.2-1.3); Total Protein 5.3 g/dL (6.3-8.2)
[2025-02-05 04:04] LABS: AST 52 U/L (14-36); Alkaline Phosphatase 64 U/L (38-126); Potassium 4.1 mmol/L (3.5-5.1)
[2025-02-05] MEDS: SODIUM CHLORIDE 0.9% 1,000 ML IV SCH (04:34)
[2025-02-05] MEDS: LEVOTHYROXINE 88 MCG TAB PO SCH (06:44)
[2025-02-05] MEDS: PANTOPRAZOLE 40 MG TABLET PO SCH (06:44)
[2025-02-05] MEDS: DIGOXIN 125 MCG TAB PO SCH (07:37)
[2025-02-05] MEDS: METOPROLOL TARTRATE 50 MG TAB PO SCH (07:38)
[2025-02-05] MEDS ORDERED: HYDROcodone/APAP 7.5-325MG 1 EACH TAB PO PRN (12:24)
--- NOTE | 2025-02-05 14:48 | P.HPOR ---
History of Present Illness H&P Date: 02/05/25 Chief Complaint: Right acetabular and pubic ramii fractures She fell off her scooter two days ago while going down a ramp at home. She hasn't walked in 15 years and is non ambulatory. She has pain at her right hip as expected. She has had chronic weakness in her right lower extremity for several years. She denies calf pain, fever, chills, chest pain or SOB Review of Systems All systems: negative Constitutional: Denies chills, Denies fever Eyes: denies blurred vision, denies pain Ears, nose, mouth and throat: Denies headache, Denies sore throat Cardiovascular: Denies chest pain, Denies shortness of breath Respiratory: Denies cough Gastrointestinal: Denies abdominal pain, Denies diarrhea, Denies nausea, Denies vomiting Genitourinary: Denies dysuria, Denies hematuria Musculoskeletal: Denies myalgias Integumentary: Denies pruritus, Denies rash Neurological: Denies numbness, Denies weakness Psychiatric: Denies anxiety, Denies depression Endocrine: Denies fatigue, Denies weight change Past Medical History Past Medical History: Cancer, Deep Vein Thrombosis (DVT), Hyperlipidemia, Hypert ension, Thyroid Disorder Additional Past Medical History / Comment(s): ANXIETY, NEUROPATHY, Left Breast Cancer with mastectomy/lymphnodes, right side paralysis effected from , right dvt History of Any Multi-Drug Resistant Organisms: None Reported Past Surgical History: Breast Surgery, Hysterectomy, Tonsillectomy Additional Past Surgical History / Comment(s): LEG SURGERY, breast ca Past Anesthesia/Blood Transfusion Reactions: No Reported Reaction Past Psychological History: Anxiety Smoking Status: Never smoker Past Alcohol Use History: None Reported Past Drug Use History: None Reported - Past Family History Mother Family Medical History: Cancer Additional Family Medical History / Comment(s): ovarian Father Family Medical History: Cancer Additional Family Medical History / Comment(s): colon Medications and Allergies Home Medications Medication Instructions Recorded Confirmed Type ALPRAZolam [Xanax] 0.5 mg PO TID PRN 02/05/14 02/04/25 History Simvastatin [Zocor] 20 mg PO PC-SUPPER 02/05/14 02/04/25 History traMADol HCL [Ultram] 50 mg PO QID@03,09,15,21 02/05/14 02/04/25 History Gabapentin 800 mg PO TID@0900,1500,2100 09/09/14 02/04/25 History Letrozole [Femara] 2.5 mg PO PC-SUPPER 04/26/19 02/04/25 History Apixaban [Eliquis] 5 mg PO BID #30 tab 04/29/19 02/04/25 Rx Digoxin [Digitek] 125 mcg PO PC-BRKFST 11/28/22 02/04/25 History Gabapentin 400 mg PO HS@2100 02/04/25 02/04/25 History Ipratropium [place] 0.06%Nasal 2 spray EA NOSTRIL BID PRN 02/04/25 02/04/25 History [Atrovent Nasal 0.06%] Levothyroxine Sodium [Synthroid] 88 mcg PO AC-BRKFST 02/04/25 02/04/25 History Metoprolol Tartrate [Lopressor] 50 mg PO DAILY 02/04/25 02/04/25 History Allergies Allergy/AdvReac Type Severity Reaction Status Date / Time adhesive Allergy Unknown Verified 02/04/25 16:50 amoxicillin trihydrate Allergy Unknown Verified 02/04/25 16:50 [From Augmentin] ciprofloxacin [From Cipro] Allergy Unknown Verified 02/04/25 16:50 ciprofloxacin HCl Allergy Unknown Verified 02/04/25 16:50 [From Cipro] clindamycin Allergy Anaphylaxis Verified 02/04/25 16:50 erythromycin base Allergy Unknown Verified 02/04/25 16:50 [Erythromycin Base] Macrolide Antibiotics Allergy Unknown Verified 02/04/25 16:50 Penicillins Allergy Unknown Verified 02/04/25 16:50 potassium clavulanate Allergy Unknown Verified 02/04/25 16:50 [From Augmentin] Sulfa (Sulfonamide Allergy Unknown Verified 02/04/25 16:50 Antibiotics) Physical Examination Inspection of the lower extremities shows no deformity of the right lower extremity. There are no wounds, erythema or ecchymoses. The knee is nontender without effusion. She has painless range of motion of the knee. She has had chronic weakness at ankle and foot. Range of motion of the right hip is not tested due to fracture. Neurovascular status is intact throughout the lower extremity sensation fully intact. Calf is soft and nontender. 2+ dorsalis pedis pulse and less than 2 second cap refill is present. Results - Labs Labs: Abnormal Lab Results - Last 24 Hours (Table) 02/04/25 02/04/25 02/05/25 Range/Units 15:15 15:15 02:39 RBC 3.89 L 3.90 L (4.10-5.20) 10*6/uL MCH 33.4 H 33.3 H (27.0-32.0) pg Plt Count 115 L (140-440) 10*3/uL Lymphocytes # 0.79 L (0.90-5.00) 10*3/uL Eosinophils # 0.03 L (0.04-0.35) 10*3/uL Sodium (137-145) mmol/L BUN 27 H (7-17) mg/dL Creatinine (0.52-1.04) mg/dL Total Bilirubin 1.5 H (0.2-1.3) mg/dL AST 54 H (14-36) U/L Total Protein 5.8 L (6.3-8.2) g/dL Albumin 3.4 L (3.5-5.0) g/dL 02/05/25 Range/Units 02:39 RBC (4.10-5.20) 10*6/uL MCH (27.0-32.0) pg Plt Count (140-440) 10*3/uL Lymphocytes # (0.90-5.00) 10*3/uL Eosinophils # (0.04-0.35) 10*3/uL Sodium 135 L (137-145) mmol/L BUN 25 H (7-17) mg/dL Creatinine 0.44 L (0.52-1.04) mg/dL Total Bilirubin (0.2-1.3) mg/dL AST 52 H (14-36) U/L Total Protein 5.3 L (6.3-8.2) g/dL Albumin 2.9 L (3.5-5.0) g/dL H & H 02/04/25 02/05/25 Range/Units 15:15 02:39 Hgb 13.0 13.0 (12.0-15.0) g/dL Hct 37.7 37.5 (37.2-46.3) % Coagulation 02/04/25 Range/Units 14:59 INR 1.1 (<1.2) Result Diagrams: 02/05/25 02:39 02/05/25 02:39 - Diagnostic results Hip x-ray: report reviewed, image reviewed Assessment and Plan (1) Acetabular fracture Narrative/Plan: She is to Continue non weight bearing with RLE. Continue Pain management, PT, DVT prophylaxis, medical management. She may transfer to [facility] when authorized Current Visit: Yes Status: Acute Priority: Medium Code(s): S32.409A - UNSP FRACTURE OF UNSP ACETABULUM, INIT FOR CLOS FX SNOMED Code(s): 53069583 Time with Patient: Less than 30
--- NOTE | 2025-02-05 15:31 | P.CONS ---
History of Present Illness - Reason for Consult Consult date: 02/04/25 Medical management Requesting physician: Jordan hZang - Chief Complaint Right acetabular fracture with extension to the right pubic rami. 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 as well as rad iculopathy, osteoporosis, DVT of the right lower extremity, patient presented to the emergency department at [facility] last night after she had tripped off with her scooter on Monday while she was at home, her nephew came and pulled her over, and she was intravenous amount of pain, she was complaining of significant amount pain in the right hip area by Monday morning she was not able to even do anything at that time, so she was brought into the ER for evaluation, ended up having an x-ray that showed evidence of right acetabular fracture with extension to the right pubic, my and she was admitted under trauma surgery and I was asked to see the patient for medical management, patient is laying down in bed she is complaining of a lot of pain, she appears to be somewhat hypotensive she was given a liter of normal saline, then she was placed on normal saline at 100 cc an hour, she was given 1 dose of Dilaudid 0.5 mg that dropped her blood pressure, she was started on tramadol 50 mg every 6 hours as needed, await orthopedic surgery evaluation. REVIEW OF SYSTEMS: Constitutional: No documented fever, no chills, no night sweats. No weight change. No weakness, fatigue or lethargy. No daytime sleepiness. EENT: No headache. No blurred vision or double vision, no loss of vision. No loss of Hearing, no ringing in the ears, no dizziness. No nasal drainage or congestion. No epistaxis. No sore throat. Lungs: No shortness of breath, no cough, no sputum production. No wheezing. Reports dyspnea with activity. Cardiovascular: No chest pain, no lower extremity edema. No palpitations. No paroxysmal nocturnal dyspnea. No orthopnea. No lightheadedness or dizziness. No syncopal episodes. Abdominal: Reports no abdominal pain. No nausea, vomiting. No diarrhea. No constipation. No bloody or tarry stools reports loss of appetite. Genitourinary: No dysuria, increased frequency, urgency. No urinary retention. Musculoskeletal: No myalgias. No muscle weakness, positive for gait dysfunction, no frequent falls. positive for back pain. No neck pain. Integumentary: No wounds, no lesions. No rash or pruritus. positive for unusual bruising. No change in hair or nails. Neurologic: No aphasia. No facial droop. No change in mentation. No head injury. No headache. No paralysis. No paresthesia. Psychiatric: No depression. positive for anxiety. No mood swings. Endocrine: No abnormal blood sugars. No weight change. PAST MEDICAL HISTORY: Hypertension and hypertensive cardiovascular disease. Mixed hyperlipidemia. Paroxysmal atrial fibrillation. Left breast cancer status post radical left mastectomy with radiation therapy currently on hormonal therapy. Osteoporosis. Anxiety. DVT of the right lower extremity. Allergic rhinitis. Spondylosis of the lumbar spine with radiculopathy PAST SURGICAL HISTORY: Bilateral cataract surgery. Tonsillectomy. Colonoscopy 2022. Breast biopsy with left radical mastectomy and radiation therapy 2014. Hysterectomy 1981. Left leg tendon repair. SOCIAL HISTORY: Patient is a lifelong non-smoker, she denies any alcohol ingestion, she denies any drug use or abuse, she lives at home, she uses a scooter for activities of daily living, she pivots using a walker, FAMILY HISTORY: Father at the age of 83 from colon cancer, mother at age of 90 from melanoma, patient has 1 brother with prostate cancer, patient has 1 sister with spondylosis of the lumbar spine along with hypertension, PHYSICAL EXAMINATION: General: 84-year-old female in and down in bed in minimal distress. HEENT: Head is atraumatic, normocephalic, pupils were equal round reactive to light and recommendation, extraocular muscle movement were intact, sclera nonicteric, conjunctivae were pale, mucous membranes of the mouth are somewhat dry. Neck: Supple, no JVP, normal carotid upstroke bilaterally, no lymphadenopathy. Chest: Decreased breath sounds at the bases, few rhonchi, no expiratory wheezes, no chest wall tenderness, no intercostal retractions. Heart: First heart sound is normal, second heart sounds normal Abdomen: Soft, nontender, nondistended, positive bowel sounds. Extremities: There is no edema no calf tenderness DP +2 bilaterally bilateral foot drop Neurologic examination: Patient is awake alert and oriented x3, cranial nerves II-12 appear grossly intact, muscle power were 5 out of 5 in upper extremities bilateral lower extremity weakness, and bilateral foot drops. ASSESSMENT AND PLAN: 1. Status post fall with right acetabular fracture extending to the right pubic rami. Continue current pain management with Dilaudid 0.5 mg a push every 6 hours, continue tramadol 50 mg orally every 6 hours as needed, physical therapy evaluation, social media assistant consultation, orthopedic surgery evaluation, continue with PureWick and try to use the bedpan for the patient bathroom privileges, till the patient is evaluated by physical therapy as well as orthopedic surgery patient will likely require subacute rehabilitation as the patient usually struggles without any fractures uses a scooter at home. 2. Hypertension and hypertensive cardiovascular disease. Continue patient on metoprolol 50 mg once every day, monitor the patient blood pressure very closely. 3. Mixed hyperlipidemia. Continue patient on atorvastatin 10 mg once every day. 4. Paroxysmal atrial fibrillation. Continue patient on Eliquis 5 mg orally twice every day, digoxin 125 mcg once every day, metoprolol 50 mg once every day, patient seems to be controlled at this point in time. Will follow-up with the patient very closely. 5. Hypothyroidism. Continue patient on levothyroxine 88 mcg once every day, monitor TSH and free T4. 6. History of breast cancer status post left radical mastectomy with radiation therapy 2014 along with hormonal therapy continue with letrozole 2.5 mg orally once every day. 7. History of deep venous thrombosis of the right lower extremity continue patient on Eliquis 5 mg orally twice every day for life. 8. 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 Continue patient on gabapentin 400 mg at bedtime along with 800 mg 3 times every day. 9. Osteoporosis. Continue calcium and vitamin D, will require Prolia 60 mg subcutaneously every 6 months from now on, follow-up with the DEXA scan as an outpatient. 10. DVT prophylaxis. Continue Eliquis 5 mg orally twice every day. 11. GI prophylaxis. Continue patient on PPI. 12. Physical therapy evaluation. 13. computer networker consultation for discharge planning patient will require subacute rehabilitation likely [facility]. 14. Thank you for the consultation we will follow the patient with you. Past Medical History Past Medical History: Cancer, Hyperlipidemia, Hypertension, Thyroid Disorder Additional Past Medical History / Comment(s): ANXIETY, NEUROPATHY History of Any Multi-Drug Resistant Organisms: None Reported Past Surgical History: Breast Surgery, Hysterectomy, Tonsillectomy Additional Past Surgical History / Comment(s): LEG SURGERY, breast ca Past Anesthesia/Blood Transfusion Reactions: No Reported Reaction Past Psychological History: Anxiety Smoking Status: Never smoker Past Alcohol Use History: None Reported Past Drug Use History: None Reported - Past Family History Mother Family Medical History: Cancer Additional Family Medical History / Comment(s): ovarian Father Family Medical History: Cancer Additional Family Medical History / Comment(s): colon Medications and Allergies Home Medications Medication Instructions Recorded Confirmed Type ALPRAZolam [Xanax] 0.5 mg PO TID PRN 02/05/14 02/04/25 History Simvastatin [Zocor] 20 mg PO PC-SUPPER 02/05/14 02/04/25 History traMADol HCL [Ultram] 50 mg PO QID@03,09,15,21 02/05/14 02/04/25 History Gabapentin 800 mg PO TID@0900,1500,2100 09/09/14 02/04/25 History Letrozole [Femara] 2.5 mg PO PC-SUPPER 04/26/19 02/04/25 History Apixaban [Eliquis] 5 mg PO BID #30 tab 04/29/19 02/04/25 Rx Digoxin [Digitek] 125 mcg PO PC-BRKFST 11/28/22 02/04/25 History Gabapentin 400 mg PO HS@2100 02/04/25 02/04/25 History Ipratropium [place] 0.06%Nasal 2 spray EA NOSTRIL BID PRN 02/04/25 02/04/25 History [Atrovent Nasal 0.06%] Levothyroxine Sodium [Synthroid] 88 mcg PO AC-BRKFST 02/04/25 02/04/25 History Metoprolol Tartrate [Lopressor] 50 mg PO DAILY 02/04/25 02/04/25 History Allergies Allergy/AdvReac Type Severity Reaction Status Date / Time adhesive Allergy Unknown Verified 02/04/25 16:50 amoxicillin trihydrate Allergy Unknown Verified 02/04/25 16:50 [From Augmentin] ciprofloxacin [From Cipro] Allergy Unknown Verified 02/04/25 16:50 ciprofloxacin HCl Allergy Unknown Verified 02/04/25 16:50 [From Cipro] clindamycin Allergy Anaphylaxis Verified 02/04/25 16:50 erythromycin base Allergy Unknown Verified 02/04/25 16:50 [Erythromycin Base] Macrolide Antibiotics Allergy Unknown Verified 02/04/25 16:50 Penicillins Allergy Unknown Verified 02/04/25 16:50 potassium clavulanate Allergy Unknown Verified 02/04/25 16:50 [From Augmentin] Sulfa (Sulfonamide Allergy Unknown Verified 02/04/25 16:50 Antibiotics) Physical Exam Vitals: Vital Signs Temp Pulse Resp BP Pulse Ox 02/04/25 18:04 98.4 F 64 19 112/72 95 02/04/25 17:48 98.4 F 64 19 112/72 95 02/04/25 16:40 98.7 F 92 19 111/70 96 02/04/25 14:28 98.1 F 100 18 99/64 96 02/04/25 13:14 98.1 F 79 20 99/64 95 Intake and Output 02/04/25 02/04/25 02/04/25 06:59 14:59 22:59 Other: Weight 66.678 kg Results CBC & Chem 7: 02/05/25 02:39 02/05/25 02:39 Labs: Abnormal Lab Results - Last 24 Hours (Table) 02/04/25 02/04/25 Range/Units 15:15 15:15 RBC 3.89 L (4.10-5.20) 10*6/uL MCH 33.4 H (27.0-32.0) pg Eosinophils # 0.03 L (0.04-0.35) 10*3/uL BUN 27 H (7-17) mg/dL Total Bilirubin 1.5 H (0.2-1.3) mg/dL AST 54 H (14-36) U/L Total Protein 5.8 L (6.3-8.2) g/dL Albumin 3.4 L (3.5-5.0) g/dL
--- NOTE | 2025-02-05 15:33 | P.PN ---
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 as well as rad iculopathy, osteoporosis, DVT of the right lower extremity, patient presented to the emergency department at [facility] last night after she had tripped off with her scooter on Monday afternoon while she was at home, her nephew came and pulled her over, and she was intravenous amount of pain, she was complaining of significant amount pain in the right hip area by Monday morning she was not able to even do anything at that time, so she was brought into the ER for evaluation, ended up having an x-ray that showed evidence of right acetabular fracture with extension to the right pubic, my and she was admitted under trauma surgery and I was asked to see the patient for medical management, patient is laying down in bed she is complaining of a lot of pain, she appears to be somewhat hypotensive she was given a liter of normal saline, then she was placed on normal saline at 100 cc an hour, she was given 1 dose of Dilaudid 0.5 mg that dropped her blood pressure, she was started on tramadol 50 mg every 6 hours as needed, await orthopedic surgery evaluation. 02/05: Patient sitting up in bed she continues to have pain in the right hip area, and right groin area, she denies any chest pain at this time, she is not short of breath, she has been tolerating her treatment very well, his blood pressure is marginal, she denies any abdominal pain, nausea vomiting or diarrhea, she has not had a bowel movement yet, she continues to have the pure wick but does not appear to be working at this time, we will follow-up with the patient very closely at this time. Physical therapy evaluation still pending, social group worker consultation still pending, orthopedic evaluation is in chart. REVIEW OF SYSTEMS: Constitutional: No documented fever, no chills, no night sweats. No weight change. No weakness, fatigue or lethargy. No daytime sleepiness. EENT: No headache. No blurred vision or double vision, no loss of vision. No loss of Hearing, no ringing in the ears, no dizziness. No nasal drainage or congestion. No epistaxis. No sore throat. Lungs: No shortness of breath, no cough, no sputum production. No wheezing. Reports dyspnea with activity. Cardiovascular: No chest pain, no lower extremity edema. No palpitations. No paroxysmal nocturnal dyspnea. No orthopnea. No lightheadedness or dizziness. No syncopal episodes. Abdominal: Reports no abdominal pain. No nausea, vomiting. No diarrhea. No constipation. No bloody or tarry stools reports loss of appetite. Genitourinary: No dysuria, increased frequency, urgency. No urinary retention. Musculoskeletal: No myalgias. No muscle weakness, positive for gait dysfunction, no frequent falls. positive for back pain. No neck pain. Integumentary: No wounds, no lesions. No rash or pruritus. positive for unusual bruising. No change in hair or nails. Neurologic: No aphasia. No facial droop. No change in mentation. No head injury. No headache. No paralysis. No paresthesia. Psychiatric: No depression. positive for anxiety. No mood swings. Endocrine: No abnormal blood sugars. No weight change. PHYSICAL EXAMINATION: General: 84-year-old female in and down in bed in minimal distress. HEENT: Head is atraumatic, normocephalic, pupils were equal round reactive to light and recommendation, extraocular muscle movement were intact, sclera nonicteric, conjunctivae were pale, mucous membranes of the mouth are somewhat dry. Neck: Supple, no JVP, normal carotid upstroke bilaterally, no lymphadenopathy. Chest: Decreased breath sounds at the bases, few rhonchi, no expiratory wheezes, no chest wall tenderness, no intercostal retractions. Heart: First heart sound is normal, second heart sounds normal Abdomen: Soft, nontender, nondistended, positive bowel sounds. Extremities: There is no edema no calf tenderness DP +2 bilaterally bilateral foot drop Neurologic examination: Patient is awake alert and oriented x3, cranial nerves II-12 appear grossly intact, muscle power were 5 out of 5 in upper extremities bilateral lower extremity weakness, and bilateral foot drops. ASSESSMENT AND PLAN: 1. Status post fall with right acetabular fracture extending to the right pubic rami. Continue current pain management with Dilaudid 0.5 mg a push every 6 hours, continue tramadol 50 mg orally every 6 hours as needed, we will continue with current pain management, follow-up with physical therapy and social group worker for possible subacute rehabilitation. 2. Hypertension and hypertensive cardiovascular disease. Continue patient on metoprolol 50 mg once every day, monitor the patient blood pressure very closely. 3. Mixed hyperlipidemia. Continue patient on atorvastatin 10 mg once every day. 4. Paroxysmal atrial fibrillation. Continue patient on Eliquis 5 mg orally twice every day, digoxin 125 mcg once every day, metoprolol 50 mg once every day, patient seems to be controlled at this point in time. Will follow-up with the patient very closely. 5. Hypothyroidism. Continue patient on levothyroxine 88 mcg once every day, monitor TSH and free T4. 6. History of breast cancer status post left radical mastectomy with radiation therapy 2014 along with hormonal therapy continue with letrozole 2.5 mg orally once every day. 7. History of deep venous thrombosis of the right lower extremity continue patient on Eliquis 5 mg orally twice every day for life. 8. 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 Continue patient on gabapentin 400 mg at bedtime along with 800 mg 3 times every day. 9. Osteoporosis. Continue calcium and vitamin D, will require Prolia 60 mg subcutaneously every 6 months from now on, follow-up with the DEXA scan as an outpatient. 10. DVT prophylaxis. Continue Eliquis 5 mg orally twice every day. 11. GI prophylaxis. Continue patient on PPI. 12. Physical therapy evaluation. 13. automotive tire worker consultation for discharge planning patient will require subacute rehabilitation [facility]. Objective - Vital Signs Vital signs: Vital Signs Temp 98.8 F 02/05/25 14:06 Pulse 79 02/05/25 14:06 Resp 20 02/05/25 14:06 BP 101/66 02/05/25 14:06 Pulse Ox 92 L 02/05/25 14:06 FiO2 Intake & Output 02/04/25 02/05/25 02/05/25 18:59 06:59 18:59 Weight 66.678 kg 66.678 kg - Labs CBC & Chem 7: 02/05/25 02:39 02/05/25 02:39 Labs: Abnormal Lab Results - Last 24 Hours (Table) 02/04/25 02/05/25 02/05/25 Range/Units 15:15 02:39 02:39 RBC 3.90 L (4.10-5.20) 10*6/uL MCH 33.3 H (27.0-32.0) pg Plt Count 115 L (140-440) 10*3/uL Lymphocytes # 0.79 L (0.90-5.00) 10*3/uL Sodium 135 L (137-145) mmol/L BUN 27 H 25 H (7-17) mg/dL Creatinine 0.44 L (0.52-1.04) mg/dL Total Bilirubin 1.5 H (0.2-1.3) mg/dL AST 54 H 52 H (14-36) U/L Total Protein 5.8 L 5.3 L (6.3-8.2) g/dL Albumin 3.4 L 2.9 L (3.5-5.0) g/dL
[2025-02-05] MEDS: ATORVASTATIN 10 MG TAB PO SCH (17:27)
[2025-02-05] MEDS: LETROZOLE 2.5 MG TAB PO SCH (17:27)
[2025-02-05] MEDS: ALPRAZolam 0.5 MG TAB PO PRN (20:43)
--- NOTE | 2025-02-05 22:04 | XR ---
EXAMINATION TYPE: XR chest 1V portable DATE OF EXAM: 02/05/2025 9:57 PM COMPARISON: Chest radiographs from 02/04/2025. CLINICAL INDICATION: Female, 84 years old with history of possible aspiration; [facility] TECHNIQUE: XR chest 1V portable Frontal view of the chest. FINDINGS: Lungs/Pleura: Prominent interstitial lung markings are seen scattered throughout the lungs. No eviden ce of focal consolidation, pneumothorax or pleural effusion. Pulmonary vascularity: Unremarkable. Heart/mediastinum: Cardiomediastinal silhouette is enlarged. Atherosclerotic calcifications are seen in the aorta. Musculoskeletal: No acute osseous pathology. Severe degeneration changes of the shoulders. Other findings: None IMPRESSION: 1. No definitive evidence for aspiration. 2. Chronic changes without acute pulmonary process. No significant change from prior. 3. Cardiomegaly. [facility], , 02/05/2025 10:02 PM
[2025-02-06 08:24] LABS: Basophils # (A) 0.02 X 10*3/uL (0.00-0.10); Basophils % (A) 0.4 %; Eosinophils # (A) 0.06 X 10*3/uL (0.04-0.35); Eosinophils % (A) 1.1 %; HCT 37.2 % (37.2-46.3); HGB 12.2 g/dL (12.0-15.0); Lymphocytes # (A) 1.02 X 10*3/uL (0.90-5.00); Lymphocytes % (A) 19.5 %; MCH 32.4 pg (27.0-32.0); MCHC 32.8 g/dL (32.0-37.0); MCV 98.9 FL (80.0-97.0); Monocytes # (A) 0.76 X 10*3/uL (0.20-1.00); Monocytes % (A) 14.5 %; NRBC Per 100 WBC 0 X 10*3/uL (0.00-0.01); Neutrophils # (A) 3.35 X 10*3/uL (1.80-7.70); Neutrophils % (A) 64.1 %; Platelet Count 148 X 10*3/uL (140-440); RBC 3.76 X 10*6/uL (4.10-5.20); WBC 5.23 X 10*3/uL (4.50-10.00)
[2025-02-06 08:44] LABS: ALT 39 U/L (8-44); AST 50 U/L (13-35); Albumin 3.2 g/dL (3.8-4.9); Albumin/Globulin Ratio 1.88 Ratio (1.60-3.17); Alkaline Phosphatase 83 U/L (41-126); BUN/Creat Ratio 36.25 Ratio (12.00-20.00); Blood Urea Nitrogen 14.5 mg/dL (9.0-27.0); Calcium 8.2 mg/dL (8.7-10.3); Carbon Dioxide 20.8 mmol/L (21.6-31.8); Chloride 104 mmol/L (96-109); Digoxin 0.8 ng/mL (0.8-2.0); Globulin 1.7 g/dL (1.6-3.3); Glucose 106 mg/dL (70-110); Potassium 4.2 mmol/L (3.5-5.5); Sodium 139 mmol/L (135-145); Total Bilirubin 1.3 mg/dL (0.3-1.2); Total Protein 4.9 g/dL (6.2-8.2)
--- NOTE | 2025-02-06 09:55 | P.PN ---
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 as well as rad iculopathy, osteoporosis, DVT of the right lower extremity, patient presented to the emergency department at [facility] last night after she had tripped off with her scooter on Monday afternoon while she was at home, her nephew came and pulled her over, and she was intravenous amount of pain, she was complaining of significant amount pain in the right hip area by Monday morning she was not able to even do anything at that time, so she was brought into the ER for evaluation, ended up having an x-ray that showed evidence of right acetabular fracture with extension to the right pubic, my and she was admitted under trauma surgery and I was asked to see the patient for medical management, patient is laying down in bed she is complaining of a lot of pain, she appears to be somewhat hypotensive she was given a liter of normal saline, then she was placed on normal saline at 100 cc an hour, she was given 1 dose of Dilaudid 0.5 mg that dropped her blood pressure, she was started on tramadol 50 mg every 6 hours as needed, await orthopedic surgery evaluation. 02/05: Patient sitting up in bed she continues to have pain in the right hip area, and right groin area, she denies any chest pain at this time, she is not short of breath, she has been tolerating her treatment very well, his blood pressure is marginal, she denies any abdominal pain, nausea vomiting or diarrhea, she has not had a bowel movement yet, she continues to have the pure wick but does not appear to be working at this time, we will follow-up with the patient very closely at this time. Physical therapy evaluation still pending, social worker health services consultation still pending, orthopedic evaluation is in chart. 02/06: Patient sitting up in the recliner chair, she is feeling a bit better, her pain is still about 5-6 out of 10 in intensity, she is not able to do much at this point in time, she is planning to go to [facility] [place], she had an episode of a choking episode yesterday but she is eating fine today, she had a chest x-ray did not show evidence of acute abnormalities, patient denies any fever or chills at this time she has no coughing or hemoptysis her IV site appears to be darker with I spoke with the nursing staff about changing its place without changing to the other side due to her breast cancer history REVIEW OF SYSTEMS: Constitutional: No documented fever, no chills, no night sweats. No weight change. No weakness, fatigue or lethargy. No daytime sleepiness. EENT: No headache. No blurred vision or double vision, no loss of vision. No loss of Hearing, no ringing in the ears, no dizziness. No nasal drainage or congestion. No epistaxis. No sore throat. Lungs: No shortness of breath, no cough, no sputum production. No wheezing. Reports dyspnea with activity. Cardiovascular: No chest pain, no lower extremity edema. No palpitations. No paroxysmal nocturnal dyspnea. No orthopnea. No lightheadedness or dizziness. No syncopal episodes. Abdominal: Reports no abdominal pain. No nausea, vomiting. No diarrhea. No constipation. No bloody or tarry stools reports loss of appetite. Genitourinary: No dysuria, increased frequency, urgency. No urinary retention. Musculoskeletal: No myalgias. No muscle weakness, positive for gait dysfunction, no frequent falls. positive for back pain. No neck pain. Integumentary: No wounds, no lesions. No rash or pruritus. positive for unusual bruising. No change in hair or nails. Neurologic: No aphasia. No facial droop. No change in mentation. No head injury. No headache. No paralysis. No paresthesia. Psychiatric: No depression. positive for anxiety. No mood swings. Endocrine: No abnormal blood sugars. No weight change. PHYSICAL EXAMINATION: General: 84-year-old female in and down in bed in minimal distress. HEENT: Head is atraumatic, normocephalic, pupils were equal round reactive to light and recommendation, extraocular muscle movement were intact, sclera nonicteric, conjunctivae were pale, mucous membranes of the mouth are somewhat dry. Neck: Supple, no JVP, normal carotid upstroke bilaterally, no lymphadenopathy. Chest: Decreased breath sounds at the bases, few rhonchi, no expiratory wheezes, no chest wall tenderness, no intercostal retractions. Heart: First heart sound is normal, second heart sounds normal Abdomen: Soft, nontender, nondistended, positive bowel sounds. Extremities: There is no edema no calf tenderness DP +2 bilaterally bilateral foot drop Neurologic examination: Patient is awake alert and oriented x3, cranial nerves II-12 appear grossly intact, muscle power were 5 out of 5 in upper extremities bilateral lower extremity weakness, and bilateral foot drops. ASSESSMENT AND PLAN: 1. Status post fall with right acetabular fracture extending to the right pubic rami. Continue current pain management with Dilaudid 0.5 mg a push every 6 hours, continue tramadol 50 mg orally every 6 hours as needed, we will continue with current pain management, follow-up with physical therapy and social worker health services for possible subacute rehabilitation. 2. Hypertension and hypertensive cardiovascular disease. Continue patient on metoprolol 50 mg once every day, monitor the patient blood pressure very closely. 3. Mixed hyperlipidemia. Continue patient on atorvastatin 10 mg once every day. 4. Paroxysmal atrial fibrillation. Continue patient on Eliquis 5 mg orally twice every day, digoxin 125 mcg once every day, metoprolol 50 mg once every day, patient seems to be controlled at this point in time. Will follow-up with the patient very closely. 5. Hypothyroidism. Continue patient on levothyroxine 88 mcg once every day, monitor TSH and free T4. 6. History of breast cancer status post left radical mastectomy with radiation therapy 2014 along with hormonal therapy continue with letrozole 2.5 mg orally once every day. 7. History of deep venous thrombosis of the right lower extremity continue patient on Eliquis 5 mg orally twice every day for life. 8. 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 Continue patient on gabapentin 400 mg at bedtime along with 800 mg 3 times every day. 9. Osteoporosis. Continue calcium and vitamin D, will require Prolia 60 mg subcutaneously every 6 months from now on, follow-up with the DEXA scan as an outpatient. 10. DVT prophylaxis. Continue Eliquis 5 mg orally twice every day. 11. GI prophylaxis. Continue patient on PPI. 12. Physical therapy evaluation. 13. factory worker consultation for discharge planning patient will require subacute rehabilitation likely [facility] on the [place] likely tomorrow morning Objective - Vital Signs Vital signs: Vital Signs Temp 98.5 F 02/06/25 07:26 Pulse 104 H 02/06/25 07:26 Resp 18 02/06/25 07:26 BP 114/81 02/06/25 07:26 Pulse Ox 96 02/06/25 07:26 FiO2 Intake & Output 02/05/25 02/06/25 02/06/25 18:59 06:59 18:59 Intake Total 2069 Balance 2069 Intake: Oral 2069 Other: Voiding Method Diaper External Catheter # Voids 1 3 - Labs CBC & Chem 7: 02/06/25 05:05 02/06/25 05:05 Labs: Abnormal Lab Results - Last 24 Hours (Table) 02/06/25 02/06/25 Range/Units 05:05 05:05 RBC 3.76 L (4.10-5.20) X 10*6/uL MCV 98.9 H (80.0-97.0) FL MCH 32.4 H (27.0-32.0) pg Carbon Dioxide 20.8 L (21.6-31.8) mmol/L Anion Gap 14.20 H (4.00-12.00) mmol/L Creatinine 0.4 L (0.6-1.5) mg/dL BUN/Creatinine Ratio 36.25 H (12.00-20.00) Ratio Calcium 8.2 L (8.7-10.3) mg/dL Total Bilirubin 1.3 H (0.3-1.2) mg/dL AST 50 H (13-35) U/L Total Protein 4.9 L (6.2-8.2) g/dL Albumin 3.2 L (3.8-4.9) g/dL
--- NOTE | 2025-02-06 11:02 | P.DS ---
Providers Date of admission: 02/04/25 16:16 Expected date of discharge: 02/06/25 Attending physician: Jordan Zhang Consults: 02/04/25 16:14 Consult Physician Urgent Consulting Provider: Tino Andrea Consult Reason/Comments: Medical management Do you want consulting provider notified?: Yes Primary care physician: Tino Emre - Discharge Diagnosis(es) (1) Acetabular fracture Patient was admitted through the ED on 02/04/25 after suffering a fall at home. She suffered a right actebula and pubic rami fracture. She uses a scooter or wheelchair for mobilization. She was admitted for further eval, treatment, pain management and placement. Hospital course has remained without complication. On day of discharge she is afebrile, vital signs stable, labs within acceptable ranges, tolerating by mouth meds and diet, voiding without difficulty, positive flatus, denies abdominal pain or calf pain, pain is controlled on oral pain medication and has no new complaints, Neurovascular status is intact, calf is soft and nontender, abdomen soft and nontender. Review of systems is negative for numbness, tingling, fever, chills, chest pain, shortness of breath, nausea, vomiting, dizziness, headaches, slurred speech or other. Current Visit: Yes Status: Acute Priority: Medium Patient Condition at Discharge: Stable Plan - Discharge Summary Discharge Rx Participant: No New Discharge Prescriptions: New Ondansetron [Zofran] 4 mg PO Q8HR PRN #21 tab PRN Reason: Nausea Docusate [Colace] 100 mg PO BID #60 capsule HYDROcodone/APAP 5-325MG [[place] 5-325] 1 - 2 tab PO Q6HR PRN #28 tab PRN Reason: Pain No Action Simvastatin [Zocor] 20 mg PO PC-SUPPER ALPRAZolam [Xanax] 0.5 mg PO TID PRN PRN Reason: Anxiety traMADol HCL [Ultram] 50 mg PO QID@03,09,15,21 Gabapentin 800 mg PO TID@0900,1500,2100 Letrozole [Femara] 2.5 mg PO PC-SUPPER Apixaban [Eliquis] 5 mg PO BID #30 tab Metoprolol Tartrate [Lopressor] 50 mg PO DAILY Levothyroxine Sodium [Synthroid] 88 mcg PO AC-BRKFST Ipratropium [place] 0.06%Nasal [Atrovent Nasal 0.06%] 2 spray EA NOSTRIL BID PRN PRN Reason: Runny Nose Digoxin [Digitek] 125 mcg PO PC-BRKFST Gabapentin 400 mg PO HS@2100 Discharge Medication List ALPRAZolam [Xanax] 0.5 mg PO TID PRN 02/05/14 [History] Simvastatin [Zocor] 20 mg PO PC-SUPPER 02/05/14 [History] traMADol HCL [Ultram] 50 mg PO QID@03,,,02/05/14 [History] Gabapentin 800 mg PO TID@0900,1500,2100 09/09/14 [History] Letrozole [Femara] 2.5 mg PO PC-SUPPER 04/26/19 [History] Apixaban [Eliquis] 5 mg PO BID #30 tab 04/29/19 [Rx] Digoxin [Digitek] 125 mcg PO PC-BRKFST 11/28/22 [History] Gabapentin 400 mg PO HS@2100 02/04/25 [History] Ipratropium [place] 0.06%Nasal [Atrovent Nasal 0.06%] 2 spray EA NOSTRIL BID PRN 02/04/25 [History] Levothyroxine Sodium [Synthroid] 88 mcg PO AC-BRKFST 02/04/25 [History] Metoprolol Tartrate [Lopressor] 50 mg PO DAILY 02/04/25 [History] Docusate [Colace] 100 mg PO BID #60 capsule 02/06/25 [Rx] HYDROcodone/APAP 5-325MG [[place] 5-325] 1 - 2 tab PO Q6HR PRN #28 tab 02/06/25 [Rx] Ondansetron [Zofran] 4 mg PO Q8HR PRN #21 tab 02/06/25 [Rx] Follow up Appointment(s)/Referral(s): Tino Andrea MD [Primary Care Provider] - 1-2 days [facility] [place], [NON-STAFF] - As Needed Jordan Zhang MD [STAFF PHYSICIAN] - Activity/Diet/Wound Care/Special Instructions: take meds as directed non weight bearing RLE f/u in office Discharge Disposition: TRANSFER TO SNF/ECF
[2025-02-06] MEDS: HYDROcodone/APAP 7.5-325MG 1 EACH TAB PO PRN (11:31)
--- NOTE | 2025-02-06 13:17 | XR ---
EXAMINATION TYPE: XR chest 1V DATE OF EXAM: 02/06/2025 COMPARISON: 02/05/2025 CLINICAL INDICATION: Female, 84 years old with history of pain right ribs; TECHNIQUE: Single frontal view of the chest is obtained. FINDINGS: Heart is moderately enlarged. Hyperinflation. Asymmetric left apical opacity. [id number] right pleural effusion. Background increased interstitial density. IMPRESSION: 1. COPD with mild to moderate cardiomegaly. 2. New small to moderate right pleural effusion with adjacent atelectasis and/or consolidation. 3. New left apical opacity, possible infiltrate. Report correlate for sequela of CHF versus developing multifocal pneumonia. [facility], , 02/06/2025 1:15 PM
--- NOTE | 2025-02-06 20:49 | CDI ---
Documentation Clarification Form Date: 02/06/2025 07:40:31 PM From: Ashley Beltran RN, CCDS Phone: [phone] Admit Date: 02/04/2025 04:16:00 PM Patient Name: Brunilda Sanches Visit Number: [id number] Discharge Date: ATTENTION: The Clinical Documentation Specialists (CDI) and [facility] Coding Staff appreciate your assistance in clarifying documentation. Please respond to the clarification below the line at the bottom and electronically sign. The CDI & [facility] Coding staff will review the response and follow-up if needed. Please note: Queries are made part of the Legal Health Record. If you have any questions, please contact the author of this message via ITS. Doctor. Jordan Zhang A fracture is documented in the ED assessment, H/P and subsequent progress notes. Additional clarification regarding the etiology of the fracture is requested. History/Risk Factors: chronic weakness, Non ambulatory for 15 years, Osteoporosis, Right side paralysis effected from Breast cancer - (current hormone therapy) Clinical Indications: 84-year-old female, wheelchair bound, fell over in her scooter 2 days prior to presentation with complaints of right hip pain. 02/04 Right Hip (2 view) Limited by patient positioning and marked osteopenia. There is a comminuted right acetabular fracture with extension to involve the right pubic rami. Moderate to severe left hip and at least moderate right hip OA. 02/04 Medicine consult notes: Osteoporosis. Continue calcium and vitamin D, will require Prolia 60 mg subcutaneously every 6 months from now on, follow-up with the DEXA scan as an outpatient. Treatment: Physical therapy evaluation Subacute Rehab placement Prolia 60 MG SQ Q 6 months, follow-up with the DEXA scan as an outpatient Femara 2. 5 MG PO PC Supper Daily 02/04-02/06 Please clarify the etiology of the fracture, if known: [ X] Right acetabular fracture and pubic Rami fracture due to traumatic fall with underlying age-related osteoporosis contributing to the fracture but not the cause [ ] Other (please specify): [ ] Unable to determine (Template Last Revised: November 2020) MTDD
[2025-02-07] MEDS: FUROSEMIDE 10 MG/ML 2 ML VIAL IV ONE (10:05)
[2025-02-07 10:54] LABS: ALT 42 U/L (4-34); AST 48 U/L (14-36); African American GFR (CKD) >90 (>60 ml/min/1.73 sqM); Albumin 3.1 g/dL (3.5-5.0); Albumin/Globulin Ratio 1.3; Alkaline Phosphatase 85 U/L (38-126); Anion Gap 10 mmol/L; Blood Urea Nitrogen 15 mg/dL (7-17); Calcium 9.1 mg/dL (8.4-10.2); Carbon Dioxide 22 mmol/L (22-30); Chloride 104 mmol/L (98-107); Globulin 2.3 g/dL; Glucose 170 mg/dL (74-99); Non-African American GFR(CKD) 89 (>60 ml/min/1.73 sqM); Potassium 3.9 mmol/L (3.5-5.1); Sodium 136 mmol/L (137-145); Total Bilirubin 1.8 mg/dL (0.2-1.3); Total Protein 5.4 g/dL (6.3-8.2)
[2025-02-07 11:06] LABS: Basophils # (A) 0.03 10*3/uL (0.00-0.10); Basophils % (A) 0.6 %; Eosinophils # (A) 0.05 10*3/uL (0.04-0.35); HCT 39.3 % (37.2-46.3); HGB 13.7 g/dL (12.0-15.0); Lymphocytes # (A) 1.11 10*3/uL (0.90-5.00); MCH 33.8 pg (27.0-32.0); MCHC 34.9 g/dL (32.0-37.0); Mean Platelet Volume 10.8 fL (9.5-12.2); Monocytes # (A) 0.63 10*3/uL (0.20-1.00); Monocytes % (A) 12.5 %; Neutrophils % (A) 63.3 %; RBC 4.05 10*6/uL (4.10-5.20); RDW 13.9 % (11.5-14.5); WBC 5.05 10*3/uL (4.50-10.00)
[2025-02-07 11:09] LABS: Platelet Count 186 10*3/uL (140-440)
[2025-02-07 14:23] VITALS: BP 95/58; PULSE 76; RESP 17; TEMP 97.9
--- NOTE | 2025-02-07 14:32 | P.PN ---
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 as well as rad iculopathy, osteoporosis, DVT of the right lower extremity, patient presented to the emergency department at [facility] last night after she had tripped off with her scooter on Monday afternoon while she was at home, her nephew came and pulled her over, and she was intravenous amount of pain, she was complaining of significant amount pain in the right hip area by Monday morning she was not able to even do anything at that time, so she was brought into the ER for evaluation, ended up having an x-ray that showed evidence of right acetabular fracture with extension to the right pubic, my and she was admitted under trauma surgery and I was asked to see the patient for medical management, patient is laying down in bed she is complaining of a lot of pain, she appears to be somewhat hypotensive she was given a liter of normal saline, then she was placed on normal saline at 100 cc an hour, she was given 1 dose of Dilaudid 0.5 mg that dropped her blood pressure, she was started on tramadol 50 mg every 6 hours as needed, await orthopedic surgery evaluation. 02/05: Patient sitting up in bed she continues to have pain in the right hip area, and right groin area, she denies any chest pain at this time, she is not short of breath, she has been tolerating her treatment very well, his blood pressure is marginal, she denies any abdominal pain, nausea vomiting or diarrhea, she has not had a bowel movement yet, she continues to have the pure wick but does not appear to be working at this time, we will follow-up with the patient very closely at this time. Physical therapy evaluation still pending, psychologist social consultation still pending, orthopedic evaluation is in chart. 02/06: Patient sitting up in the recliner chair, she is feeling a bit better, her pain is still about 5-6 out of 10 in intensity, she is not able to do much at this point in time, she is planning to go to [facility] in the [place], she had an episode of a choking episode yesterday but she is eating fine today, she had a chest x-ray did not show evidence of acute abnormalities, patient denies any fever or chills at this time she has no coughing or hemoptysis her IV site appears to be darker with I spoke with the nursing staff about changing its place without changing to the other side due to her breast cancer history 02/07: Patient is laying down in bed in no apparent distress, she denies any chest pain, this time, she continues have left lower rib pain on and off, she has been using incentive spirometer at this point in time, she was seen already by pulmonary medicine, her repeated chest x-ray showed evidence of minimal pleural effusion on the right side in the left side, she was given Lasix 20 mg IV push x 1, laboratory evaluation reviewed, patient has been accepted at [facility] on the [place], I will follow-up with the patient as an outpatient at [facility] ambulate, continue current pain management, continue physical therapy evaluation, will follow-up with the patient very closely. REVIEW OF SYSTEMS: Constitutional: No documented fever, no chills, no night sweats. No weight change. No weakness, fatigue or lethargy. No daytime sleepiness. EENT: No headache. No blurred vision or double vision, no loss of vision. No loss of Hearing, no ringing in the ears, no dizziness. No nasal drainage or congestion. No epistaxis. No sore throat. Lungs: No shortness of breath, no cough, no sputum production. No wheezing. Reports dyspnea with activity. Cardiovascular: No chest pain, no lower extremity edema. No palpitations. No paroxysmal nocturnal dyspnea. No orthopnea. No lightheadedness or dizziness. No syncopal episodes. Abdominal: Reports no abdominal pain. No nausea, vomiting. No diarrhea. No constipation. No bloody or tarry stools reports loss of appetite. Genitourinary: No dysuria, increased frequency, urgency. No urinary retention. Musculoskeletal: No myalgias. No muscle weakness, positive for gait dysfunction, no frequent falls. positive for back pain. No neck pain. Integumentary: No wounds, no lesions. No rash or pruritus. positive for unusual bruising. No change in hair or nails. Neurologic: No aphasia. No facial droop. No change in mentation. No head injury. No headache. No paralysis. No paresthesia. Psychiatric: No depression. positive for anxiety. No mood swings. Endocrine: No abnormal blood sugars. No weight change. PHYSICAL EXAMINATION: General: 84-year-old female in and down in bed in minimal distress. HEENT: Head is atraumatic, normocephalic, pupils were equal round reactive to light and recommendation, extraocular muscle movement were intact, sclera nonicteric, conjunctivae were pale, mucous membranes of the mouth are somewhat dry. Neck: Supple, no JVP, normal carotid upstroke bilaterally, no lymphadenopathy. Chest: Decreased breath sounds at the bases, few rhonchi, no expiratory wheezes, no chest wall tenderness, no intercostal retractions. Heart: First heart sound is normal, second heart sounds normal Abdomen: Soft, nontender, nondistended, positive bowel sounds. Extremities: There is no edema no calf tenderness DP +2 bilaterally bilateral foot drop Neurologic examination: Patient is awake alert and oriented x3, cranial nerves II-12 appear grossly intact, muscle power were 5 out of 5 in upper extremities bilateral lower extremity weakness, and bilateral foot drops. ASSESSMENT AND PLAN: 1. Status post fall with right acetabular fracture extending to the right pubic rami. Continue current pain management with Dilaudid 0.5 mg a push every 6 hours, continue tramadol 50 mg orally every 6 hours as needed, we will continue with current pain management, follow-up with physical therapy and psychologist social for possible subacute rehabilitation. 2. Hypertension and hypertensive cardiovascular disease. Continue patient on metoprolol 50 mg once every day, monitor the patient blood pressure very closel y. 3. Mixed hyperlipidemia. Continue patient on atorvastatin 10 mg once every day. 4. Paroxysmal atrial fibrillation. Continue patient on Eliquis 5 mg orally twice every day, digoxin 125 mcg once every day, metoprolol 50 mg once every day, patient seems to be controlled at this point in time. Will follow-up with the patient very closely. 5. Hypothyroidism. Continue patient on levothyroxine 88 mcg once every day, monitor TSH and free T4. 6. History of breast cancer status post left radical mastectomy with radiation therapy 2014 along with hormonal therapy continue with letrozole 2.5 mg orally once every day. 7. History of deep venous thrombosis of the right lower extremity continue patient on Eliquis 5 mg orally twice every day for life. 8. 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 Continue patient on gabapentin 400 mg at bedtime along with 800 mg 3 times every day. 9. Osteoporosis. Continue calcium and vitamin D, will require Prolia 60 mg subcutaneously every 6 months from now on, follow-up with the DEXA scan as an outpatient. 10. DVT prophylaxis. Continue Eliquis 5 mg orally twice every day. 11. GI prophylaxis. Continue patient on PPI. 12. Physical therapy evaluation. 13. Patient is medically stable for discharge, opioid prescription were given to the psychologist social. Objective - Vital Signs Vital signs: Vital Signs Temp 97.9 F 02/07/25 14:06 Pulse 76 02/07/25 14:06 Resp 17 02/07/25 14:06 BP 95/58 02/07/25 14:06 Pulse Ox 94 L 02/07/25 14:06 FiO2 Intake & Output 02/06/25 02/07/25 02/07/25 18:59 06:59 18:59 Intake Total 240 417 Balance 240 417 Intake: Oral 240 417 Other: Voiding Method Diaper Diaper Diaper # Voids 3 4 2 - Labs CBC & Chem 7: 02/07/25 10:05 02/07/25 10:05 Labs: Abnormal Lab Results - Last 24 Hours (Table) 02/07/25 02/07/25 Range/Units 10:05 10:05 RBC 4.05 L (4.10-5.20) 10*6/uL MCH 33.8 H (27.0-32.0) pg Sodium 136 L (137-145) mmol/L Creatinine 0.50 L (0.52-1.04) mg/dL Glucose 170 H (74-99) mg/dL Total Bilirubin 1.8 H (0.2-1.3) mg/dL AST 48 H (14-36) U/L ALT 42 H (4-34) U/L Total Protein 5.4 L (6.3-8.2) g/dL Albumin 3.1 L (3.5-5.0) g/dL
--- NOTE | 2025-02-07 17:13 | P.CNPUL ---
History of Present Illness Consult date: 02/07/25 Reason for consult: pleural effusion, abnormal CXR/CT History of present illness: This is a consultation note requested by primary care team for a right sided pleural effusion. This patient is 84 and she came into the hospital after having a fall. The patient tripped off her scooter at home and she landed on her right side. She came in with significant hip pain and the patient had further imaging revealing a right acetabular fracture with extension to the right pubis and the patient was seen by orthopedic surgery and should be treated conservatively. The patient is known to have hypertension, mixed hyperlipidemia, paroxysmal atrial fibrillation previous history of breast cancer post left mastectomy and radiation therapy followed by hormonal therapy and the patient has spondylosis of the lumbar spine with history of radiculopathy and osteoporosis and previous history of DVT of the right lower extremity. The patient had a chest x-ray that showed no significant abnormality in the right lower lobe at time of admission. However, subsequent chest x-rays especially the one that was done on 02/06/2025 revealed a small right-sided pleural effusion/atelectasis/consolidation with volume loss. There is also a chronic left apical opacity related to previous radiation therapy. There is also background COPD with mild to moderate cardiomegaly. Based on his abnormality, a pulmonary consultation was requested. The patient denies having any chest pain. Denies having any shortness of breath. No nausea. No vomiting. No abdominal pain. She had an episode of choking while in the hospital without clear indication for aspiration. No hemoptysis. Hemodynamically stable. No fever at this point. The patient is not receiving any antibiotics. Her blood work shows a white cell count of 5, hemoglobin 13.7 and a platelet count of 186. BUN is 15 with a creatinine of 0.5. Sodium level is 136. LFTs are normal. Procalcitonin less than 0.2. Review of Systems Constitutional: Reports fatigue, Reports weakness Eyes: denies as per HPI, denies blurred vision, denies bulging eye, denies decreased vision, denies diplopia, denies discharge, denies dry eye, denies ir ritation, denies itching, denies pain, denies photophobia, denies loss of peripheral vision, denies loss of vision, denies tunnel vision/blind spots Ears: deny: decreased hearing, ear discharge, earache, tinnitus Ears, nose, mouth and throat: Reports as per HPI Breasts: absent: as per HPI, change in shape, gynecomastia, masses, nipple discharge, pain, skin changes, swelling Cardiovascular: Reports as per HPI Respiratory: Reports as per HPI Gastrointestinal: Reports as per HPI Genitourinary: Reports as per HPI (Pelvic pain) Menstruation: Reports as per HPI Musculoskeletal: Reports as per HPI Musculoskeletal: absent: ankle pain, ankle stiffness, ankle swelling, as per HPI, elbow pain, elbow stiffness, elbow swelling, foot pain, foot stiffness, foot swelling, hand pain, hand stiffness, hand swelling, hip pain, hip stiffness, hip swelling, knee pain, knee stiffness, knee swelling, shoulder pain, shoulder stiffness, shoulder swelling, wrist pain, wrist stiffness, wrist swelling Integumentary: Reports as per HPI Neurological: Reports as per HPI, Reports gait dysfunction Psychiatric: Reports as per HPI Endocrine: Reports as per HPI Hematologic/Lymphatic: Reports as per HPI Allergic/Immunologic: Reports as per HPI Past Medical History Past Medical History: Cancer (Breast cancer with previous left mastectomy), Hyperlipidemia, Hypertension, Thyroid Disorder Additional Past Medical History / Comment(s): ANXIETY, NEUROPATHY History of Any Multi-Drug Resistant Organisms: None Reported Past Surgical History: Breast Surgery, Hysterectomy, Tonsillectomy Additional Past Surgical History / Comment(s): LEG SURGERY, breast ca Past Anesthesia/Blood Transfusion Reactions: No Reported Reaction Past Psychological History: Anxiety Smoking Status: Never smoker Past Alcohol Use History: None Reported Past Drug Use History: None Reported - Past Family History Mother Family Medical History: Cancer Additional Family Medical History / Comment(s): ovarian Father Family Medical History: Cancer Additional Family Medical History / Comment(s): colon Medications and Allergies Home Medications Medication Instructions Recorded Confirmed Type Simvastatin [Zocor] 20 mg PO PC-SUPPER 02/05/14 02/04/25 History Letrozole [Femara] 2.5 mg PO PC-SUPPER 04/26/19 02/04/25 History Apixaban [Eliquis] 5 mg PO BID #30 tab 04/29/19 02/04/25 Rx Digoxin [Digitek] 125 mcg PO PC-BRKFST 11/28/22 02/04/25 History Ipratropium [place] 0.06%Nasal 2 spray EA NOSTRIL BID PRN 02/04/25 02/04/25 History [Atrovent Nasal 0.06%] Levothyroxine Sodium [Synthroid] 88 mcg PO AC-BRKFST 02/04/25 02/04/25 History Metoprolol Tartrate [Lopressor] 50 mg PO DAILY 02/04/25 02/04/25 History Docusate [Colace] 100 mg PO BID #60 capsule 02/06/25 Rx Ondansetron [Zofran] 4 mg PO Q8HR PRN #21 tab 02/06/25 Rx ALPRAZolam [Xanax] 0.5 mg PO TID PRN #9 tab 02/07/25 Rx Gabapentin 400 mg PO HS@2100 #3 tab 02/07/25 Rx Gabapentin 800 mg PO TID@0900,1500,2100 #9 tab 02/07/25 Rx HYDROcodone/APAP 7.5-325MG [[place] 1 each PO Q4H PRN #18 tab 02/07/25 Rx 7.5-325] Pantoprazole [Protonix] 40 mg PO AC-BRKFST tab 02/07/25 Rx traMADol HCl [Ultram] 50 mg PO QID@03,09,15,21 #9 tab 02/07/25 Rx Allergies Allergy/AdvReac Type Severity Reaction Status Date / Time adhesive Allergy Unknown Verified 02/04/25 16:50 amoxicillin trihydrate Allergy Unknown Verified 02/04/25 16:50 [From Augmentin] ciprofloxacin [From Cipro] Allergy Unknown Verified 02/04/25 16:50 ciprofloxacin HCl Allergy Unknown Verified 02/04/25 16:50 [From Cipro] clindamycin Allergy Anaphylaxis Verified 02/04/25 16:50 erythromycin base Allergy Unknown Verified 02/04/25 16:50 [Erythromycin Base] Macrolide Antibiotics Allergy Unknown Verified 02/04/25 16:50 Penicillins Allergy Unknown Verified 02/04/25 16:50 potassium clavulanate Allergy Unknown Verified 02/04/25 16:50 [From Augmentin] Sulfa (Sulfonamide Allergy Unknown Verified 02/04/25 16:50 Antibiotics) Physical Exam Vitals: Vital Signs Temp Pulse Resp BP Pulse Ox 02/07/25 14:06 97.9 F 76 17 95/58 94 L 02/07/25 07:19 97.8 F 94 18 124/85 97 02/07/25 00:10 97.8 F 97 18 110/73 93 L 02/06/25 20:00 77 18 02/06/25 19:28 98.9 F 77 18 130/74 99 Intake and Output 02/07/25 02/07/25 02/07/25 06:59 14:59 22:59 Intake Total 240 417 500 Balance 240 417 500 Intake: Oral 240 417 500 Other: Voiding Method Diaper # Voids 4 2 2 The patient appeared well nourished and normally developed. Vital signs as documented. Head exam is unremarkable. No scleral icterus or corneal arcus noted. Neck is without jugular venous distension, thyromegaly, or carotid bruits. Carotid upstrokes are brisk bilaterally. Lungs are clear to auscultation and percussion. Diminished breath sound in the right lung base. The patient is postmastectomy on the left. No chest wall deformity. Cardiac exam reveals the PMI to be normally sized and situated. Rhythm is regular. First and second heart sounds normal. No murmurs, rubs or gallops. Abdominal exam reveals normal bowel sounds, no masses, no organomegaly and no aortic enlargement. Extremities are nonedematous and both femoral and pedal pulses are normal. Examination of the skin revealed no evidence of significant rashes, suspicious appearing nevi or other concerning lesions. Neurologically, the patient is awake and alert and the patient does not have any focal neurological deficit. Cranial nerves are essentially intact. Results - Laboratory Findings CBC and BMP: 02/07/25 10:05 02/07/25 10:05 PT/INR, D-dimer PT 12.4 sec (10.0-12.5) 02/04/25 14:59 INR 1.1 (<1.2) 02/04/25 14:59 Abnormal lab findings: Abnormal Labs 02/04/25 02/04/25 02/05/25 15:15 15:15 02:39 RBC 3.89 L 3.90 L MCV MCH 33.4 H 33.3 H Plt Count 115 L Lymphocytes # 0.79 L Eosinophils # 0.03 L Sodium Carbon Dioxide Anion Gap BUN 27 H Creatinine BUN/Creatinine Ratio Glucose Calcium Total Bilirubin 1.5 H AST 54 H ALT Total Protein 5.8 L Albumin 3.4 L 02/05/25 02/06/25 02/06/25 02:39 05:05 05:05 RBC 3.76 L MCV 98.9 H MCH 32.4 H Plt Count Lymphocytes # Eosinophils # Sodium 135 L Carbon Dioxide 20.8 L Anion Gap 14.20 H BUN 25 H Creatinine 0.44 L 0.4 L BUN/Creatinine Ratio 36.25 H Glucose Calcium 8.2 L Total Bilirubin 1.3 H AST 52 H 50 H ALT Total Protein 5.3 L 4.9 L Albumin 2.9 L 3.2 L 02/07/25 02/07/25 10:05 10:05 RBC 4.05 L MCV MCH 33.8 H Plt Count Lymphocytes # Eosinophils # Sodium 136 L Carbon Dioxide Anion Gap BUN Creatinine 0.50 L BUN/Creatinine Ratio Glucose 170 H Calcium Total Bilirubin 1.8 H AST 48 H ALT 42 H Total Protein 5.4 L Albumin 3.1 L - Diagnostic Findings Chest x-ray: image reviewed Assessment and Plan Plan: Right acetabular fracture extending to the pubic ramus on the right. This was attributed to a mechanical fall and the patient is complaining of the pelvic pain, receiving pain management. Right lower lobe atelectasis/consolidation with limited effusion. Rule out pulmonary contusion. Rule out early pneumonia. Rule out atelectasis. No sizable effusion based on my review of the chest x-ray. No hypoxemia. No respiratory distress. No fever or chills. Procalcitonin level is not elevated. Hemodynamically stable Hypertension Hyperlipidemia Paroxysmal A-fib Hypothyroidism History of breast cancer with a previous left mastectomy followed by radiation therapy and hormonal treatment Previous history of right lower extremity DVT Spondylosis of the lumbar spine with bilateral foot drop and difficulty with mo bility and gait Osteoporosis Plan No indication for thoracentesis. No clear pleural effusion. This is an area of consolidation/atelectasis. Could be an area of pulmonary contusion related to traumatic fall/injury. Pneumonia is felt to be less likely. No antibiotic coverage for now. Procalcitonin level is not elevated. Provide the patient send spirometer and repeat chest x-ray within next 24 hours and will continue to follow. Time with Patient: Greater than 30
== END 2025-02-07 17:32 | DRG 543 ==
LOC: EC 13:09 → 4SSUR 16:16
PROVIDERS: ADMIT Orthopaedic Surgery Sports Medicine; ATTEND Orthopaedic Surgery Sports Medicine
DX: M80.8B Other osteoporosis with current pathological fracture, pelvis (principal); G81.91 Hemiplegia, unspecified affecting right dominant side; C50.912 Malignant neoplasm of unspecified site of left female breast; M80.8AXA Other osteoporosis with current pathological fracture, other site, initial encounter for fracture; J90 Pleural effusion, not elsewhere classified; M47.16 Other spondylosis with myelopathy, lumbar region; E03.9 Hypothyroidism, unspecified; I48.0 Paroxysmal atrial fibrillation; S32.511A Fracture of superior rim of right pubis, initial encounter for closed fracture; I11.9 Hypertensive heart disease without heart failure; J98.11 Atelectasis; E78.2 Mixed hyperlipidemia; M47.26 Other spondylosis with radiculopathy, lumbar region; G62.9 Polyneuropathy, unspecified; M21.371 Foot drop, right foot; M21.372 Foot drop, left foot; F41.9 Anxiety disorder, unspecified; J30.9 Allergic rhinitis, unspecified; Z79.01 Long term (current) use of anticoagulants; Z79.811 Long term (current) use of aromatase inhibitors; Z79.890 Hormone replacement therapy; Z79.899 Other long term (current) drug therapy; Z92.3 Personal history of irradiation; Z99.3 Dependence on wheelchair; Z86.718 Personal history of other venous thrombosis and embolism; Z88.1 Allergy status to other antibiotic agents; Z88.0 Allergy status to penicillin; Z88.2 Allergy status to sulfonamides; W01.0XXA Fall on same level from slipping, tripping and stumbling without subsequent striking against object, initial encounter; Y92.009 Unspecified place in unspecified non-institutional (private) residence as the place of occurrence of the external cause; V00.141A Fall from scooter (nonmotorized), initial encounter
CPT/HCPCS: 36415; 71045; 73502; 80053; 80162; 84145; 85025; 85610; 85730; 93005; 96374; 99285

== ENCOUNTER 2025-03-03 14:38 | Observation (INO) | payer MEDICARE ==
--- NOTE | 2025-03-03 15:41 | XR ---
EXAMINATION TYPE: XR chest 2V DATE OF EXAM: 03/03/2025 3:34 PM COMPARISON: Chest radiographs from 02/06/2025, CT chest 12/16/2020 TECHNIQUE: XR chest 2V Frontal and lateral views of the chest. CLINICAL INDICATION:Female, 84 years old with history of Weakness; FINDINGS: Lungs/Pleura: No pneumothorax. Hyperinflation. No focal consolidation. Trace bilateral pleural effusi ons. Similar left apical wedge shaped pleural parenchymal scarring. Pulmonary vascularity: Unremarkable. Heart/mediastinum: Cardiomediastinal silhouette is enlarged and stable. Atherosclerotic calcificatio ns are seen in the aorta. Musculoskeletal: No acute osseous pathology. Other: Surgical clips within the left axilla. IMPRESSION: 1. Trace bilateral pleural effusions. 2. COPD changes. [facility], , 03/03/2025 3:38 PM
[2025-03-03] MEDS: MORPHINE SULFATE 4 MG/ML SYRINGE IV STA (15:46)
[2025-03-03] MEDS: SODIUM CHLORIDE 0.9% 1,000 ML IV ONE (15:46)
[2025-03-03 16:24] LABS: Basophils # (A) 0.01 10*3/uL (0.00-0.10); Basophils % (A) 0.2 %; Eosinophils # (A) 0.02 10*3/uL (0.04-0.35); Eosinophils % (A) 0.4 %; HCT 42.3 % (37.2-46.3); HGB 14.2 g/dL (12.0-15.0); Lymphocytes # (A) 0.73 10*3/uL (0.90-5.00); Lymphocytes % (A) 15.8 %; MCH 33.3 pg (27.0-32.0); MCHC 33.6 g/dL (32.0-37.0); MCV 99.3 fL (80.0-97.0); Mean Platelet Volume 10.2 fL (9.5-12.2); Monocytes # (A) 0.26 10*3/uL (0.20-1.00); Monocytes % (A) 5.6 %; Neutrophils # (A) 3.56 10*3/uL (1.80-7.70); Neutrophils % (A) 77.3 %; Platelet Count 240 10*3/uL (140-440); RBC 4.26 10*6/uL (4.10-5.20); RDW 15.9 % (11.5-14.5); WBC 4.61 10*3/uL (4.50-10.00)
[2025-03-03 16:32] LABS: ALT 21 U/L (4-34); AST 32 U/L (14-36); African American GFR (CKD) >90 (>60 ml/min/1.73 sqM); Albumin 3.2 g/dL (3.5-5.0); Alkaline Phosphatase 225 U/L (38-126); Anion Gap 9 mmol/L; Blood Urea Nitrogen 20 mg/dL (7-17); Calcium 8.2 mg/dL (8.4-10.2); Carbon Dioxide 23 mmol/L (22-30); Chloride 109 mmol/L (98-107); Glucose 74 mg/dL (74-99); Magnesium 1.9 mg/dL (1.6-2.3); Non-African American GFR(CKD) >90 (>60 ml/min/1.73 sqM); Potassium 3.5 mmol/L (3.5-5.1); Sodium 141 mmol/L (137-145); Total Bilirubin 1.2 mg/dL (0.2-1.3); Total Protein 5.7 g/dL (6.3-8.2)
[2025-03-03 16:34] LABS: INR 1.1 (<1.2); Partial Thromboplastin Time 27.7 sec (22.0-30.0)
[2025-03-03 16:40] LABS: NT-Pro-B-Type Natriuretic Pept 3260 pg/mL
--- NOTE | 2025-03-03 16:48 | US ---
EXAMINATION TYPE: US venous doppler duplex LE BI DATE OF EXAM: 03/03/2025 4:35 PM COMPARISON: NONE CLINICAL INDICATION: Female, 84 years old with history of edema, pain; bilat leg pain/swelling, hx of dvt, currently on eloquist, Pain TECHNIQUE: The lower extremity deep venous system is examined utilizing real time linear array sonog lauri with graded compression, color doppler sonography, and spectral doppler. SIDE PERFORMED: Bilateral FINDINGS: VESSELS IMAGED: Common Femoral Vein Deep Femoral Vein Greater Saphenous Vein * Femoral Vein Popliteal Vein Small Saphenous Vein * Proximal Calf Veins (* superficial vessels) Slightly limited visualization due to bilateral edema Right Leg: appears negative for DVT, Color Doppler imaging shows patency of the vessels. Spectral wa veforms are within normal limits. Calf veins limited due to edema Left Leg: appears negative for DVT, Color Doppler imaging shows patency of the vessels. Spectral wav eforms are within normal limits. Calf veins limited IMPRESSION: 1. Bilateral lower extremity ultrasound negative for deep venous thrombosis. [facility], , 03/03/2025 4:46 PM
[2025-03-03] MEDS: methylPREDNISolone SOD SUCCI 40 MG/ML 1 ML VIAL IV STA (16:59)
[2025-03-03] MEDS: IPRATROPIUM-ALBUTEROL 3 ML NEB INHALATION STA (17:04)
[2025-03-03] MEDS ORDERED: IPRATROPIUM-ALBUTEROL 3 ML NEB INHALATION PRN (17:22)
[2025-03-03] MEDS ORDERED: NALOXONE 0.4 MG/ML 1 ML VIAL IV PRN (17:23)
--- NOTE | 2025-03-03 17:23 | ED ---
General Adult HPI - General Chief complaint: Weakness Stated complaint: weakness Time Seen by Provider: 03/03/25 15:05 Source: patient, EMS, RN notes reviewed, old records reviewed Mode of arrival: EMS Limitations: no limitations - History of Present Illness Initial comments: Patient is an 84-year-old female presents emergency department for generalized weakness, debility, as well as shortness of breath. Has a history of hypertension, hyperlipidemia, atrial fibrillation on blood thinners. Signed herself out of nursing facility within the last week but states she cannot take care of herself at home and presents for readmission and likely replacement. Denies any chest pain. Denies any abdominal pain. 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 Has a history of bilateral neuropathy as well as anxiety. Denies any cough or congestion. Has no other acute complaints. Is not on oxygen. Presents for further evaluation at this time. - Related Data Home Medications Medication Instructions Recorded Confirmed Letrozole [Femara] 2.5 mg PO HS@209904/26/19 03/03/25 Digoxin [Digitek] 125 mcg PO DAILY@89911/28/22 03/03/25 Ipratropium [place] 0.06%Nasal 2 spray EA NOSTRIL BID PRN 02/04/25 03/03/25 [Atrovent Nasal 0.06%] Levothyroxine Sodium [Synthroid] 88 mcg PO DAILY@59902/04/25 03/03/25 Metoprolol Tartrate [Lopressor] 50 mg PO DAILY@89902/04/25 03/03/25 Apixaban [Eliquis] 5 mg PO BID@899,209903/03/25 03/03/25 Atorvastatin [Lipitor] 10 mg PO HS@209903/03/25 03/03/25 Docusate [Colace] 100 mg PO BID@899,209903/03/25 03/03/25 Gabapentin [Neurontin] 1,200 mg PO HS@209903/03/25 03/03/25 Gabapentin [Neurontin] 800 mg PO BID@0900,1500 03/03/25 03/03/25 Omeprazole [PriLOSEC] 20 mg PO DAILY@89903/03/25 03/03/25 bisacodyL [Dulcolax] 10 mg RECTAL DAILY PRN 03/03/25 03/03/25 bisacodyL [Dulcolax] 10 mg RECTAL DAILY@1700 03/03/25 03/03/25 polyethylene glycoL 3350 [Miralax] 17 gm PO DAILY@0900 03/03/25 03/03/25 Previous Rx's Medication Instructions Recorded Ondansetron [Zofran] 4 mg PO Q8HR PRN #21 tab 02/06/25 ALPRAZolam [Xanax] 0.5 mg PO TID PRN #9 tab 02/07/25 Allergies Allergy/AdvReac Type Severity Reaction Status Date / Time adhesive Allergy Unknown Verified 03/03/25 18:02 amoxicillin trihydrate Allergy Unknown Verified 03/03/25 18:02 [From Augmentin] ciprofloxacin [From Cipro] Allergy Unknown Verified 03/03/25 18:02 ciprofloxacin HCl Allergy Unknown Verified 03/03/25 18:02 [From Cipro] clindamycin Allergy Anaphylaxis Verified 03/03/25 18:02 erythromycin base Allergy Unknown Verified 03/03/25 18:02 [Erythromycin Base] Macrolide Antibiotics Allergy Unknown Verified 03/03/25 18:02 Penicillins Allergy Unknown Verified 03/03/25 18:02 potassium clavulanate Allergy Unknown Verified 03/03/25 18:02 [From Augmentin] Sulfa (Sulfonamide Allergy Unknown Verified 03/03/25 18:02 Antibiotics) Review of Systems ROS Statement: Those systems with pertinent positive or pertinent negative responses have been documented in the HPI. Review of Systems: CONST: Denies fever EYES: Denies blurry vision ENT: Denies nasal congestion C/V: Denies Chest pain RESP: Endorses shortness of breath GI: Denies abdominal pain : Denies dysuria SKIN: Denies rash. MSK: Denies joint pain. NEURO: Denies headache ROS Other: All systems not noted in ROS Statement are negative. Past Medical History Past Medical History: Cancer, Hyperlipidemia, Hypertension, Thyroid Disorder Additional Past Medical History / Comment(s): ANXIETY, NEUROPATHY History of Any Multi-Drug Resistant Organisms: None Reported Past Surgical History: Breast Surgery, Hysterectomy, Tonsillectomy Additional Past Surgical History / Comment(s): LEG SURGERY, breast ca Past Anesthesia/Blood Transfusion Reactions: No Reported Reaction Past Psychological History: Anxiety Smoking Status: Never smoker Past Alcohol Use History: None Reported Past Drug Use History: None Reported - Past Family History Mother Family Medical History: Cancer Additional Family Medical History / Comment(s): ovarian Father Family Medical History: Cancer Additional Family Medical History / Comment(s): colon General Exam - General Exam Comments Initial Comments: General: Appears in no acute distress. HEAD: Normal with no signs of head trauma. EYES: PERRLA, EOMI, conjunctiva normal, no discharge. ENT: Hearing grossly intact, normal oropharynx. RESPIRATORY: Bilateral end expiratory wheezing. No significant hypoxia. No significant increased work of breathing. C/V: Regular rate and rhythm. S1 and S2 auscultated, mild bilateral lower extremity swelling, peripheral pulses 2+ and intact throughout ABD: Abd is soft, nontender, nondistended EXT: Normal range of motion, no obvious deformity SKIN: No rashes or lesions observed on exposed skin. NEURO: Alert and oriented x 4. No obvious acute neurological deficits. Limitations: no limitations Course Vital Signs 03/03/25 03/03/25 03/03/25 14:41 14:43 17:04 Temperature 97.4 F L Pulse Rate 83 78 Respiratory 18 20 Rate Blood Pressure 123/86 O2 Sat by Pulse 95 Oximetry 03/03/25 03/03/25 17:14 18:23 Temperature 97.8 F Pulse Rate 78 58 L Respiratory 18 Rate Blood Pressure 130/66 O2 Sat by Pulse 99 Oximetry Medical Decision Making - Medical Decision Making Was pt. sent in by a medical professional or institution (STACEY Riojas, DIRECT CUSTOMER SERVICE REPRESENTATIVE, urgent care, hospital, or alf...) When possible be specific @ -No Did you speak to anyone other than the patient for history (EMS, parent, family, police, friend...)? What history was obtained from this source @ -No Did you review nursing and triage notes (agree or disagree)? Why? @ -I reviewed and agree with nursing and triage notes Were old charts reviewed (outside hosp., previous admission, EMS record, old EKG, old radiological studies, urgent care reports/EKG's, alf records)? Report findings @ -No old charts were reviewed Differential Diagnosis (chest pain, altered mental status, abdominal pain women, abdominal pain men, vaginal bleeding, weakness, fever, dyspnea, syncope, headache, dizziness, GI bleed, back pain, seizure, CVA, palpatations, mental health, musculoskeletal)? @ -COPD, infection, UTI, chronic debility. This list is not all inclusive. EKG interpreted by me (3pts min.). @ -As above X-rays interpreted by me (1pt min.). @ -Chest x-ray shows COPD changes but no other obvious acute process. Trace bilateral pleural effusions are present. CT interpreted by me (1pt min.). @ -None done U/S interpreted by me (1pt. min.). @ -Lower extremity ultrasound negative for DVT. What testing was considered but not performed or refused? (CT, X-rays, U/S, labs)? Why? @ -None What meds were considered but not given or refused? Why? @ -None Did you discuss the management of the patient with other professionals (professionals i.e. , PA, DIRECT CUSTOMER SERVICE REPRESENTATIVE, lab, RT, psych nurse, social media manager, button cutter, teacher, hotel security officer, trimming caser)? Give summary @ -Discussed with Dr. Andrea who accepted the admission. Consults placed to PT, OT, social work. Was smoking cessation discussed for >3mins.? @ -No Was critical care preformed (if so, how long)? @ -No Were there social determinants of health that impacted care today? How? (Homelessness, low income, unemployed, alcoholism, drug addiction, transportation, low edu. Level, literacy, decrease access to med. care, halfway, rehab)? @ -No Was there de-escalation of care discussed even if they declined (Discuss DNR or withdrawal of care, Hospice)? DNR status @ -No What co-morbidities impacted this encounter? (DM, HTN, Smoking, COPD, CAD, Cancer, CVA, ARF, Chemo, Hep., AIDS, mental health diagnosis, sleep apnea, morbid obesity)? @ -COPD, chronic debility Was patient admitted / discharged? Hospital course, mention meds given and route, prescriptions, significant lab abnormalities, going to OR and other pertinent info. @ -Patient presents emergency department for generalized weakness, chronic debility, and what seems to be a COPD exacerbation. She has a history of chronic right-sided weakness however now is having generalized allover weakness for few days. Recently checked herself out AMA from alf but feels she needs to go back. Feels she cannot care for self at home. Will obtain general workup. Patient was in agreement this plan. Vital signs are within acceptable limits. She will receive a 1 L fluid bolus, DVT ultrasound, as well as IV steroids and breathing treatments. Patient will receive pain meds as well. Patient was in agreement this plan. EKG shows no signs of acute ischemia. Chronic A-fib. Vital signs are within acceptable limits. Chest x-ray shows no obvious acute cardiopulmonary process. Negative DVT ultrasound. Labs are remarkable for mild elevation in BNP of 3200. No history of CHF however no other findings suggestive of CHF. On reevaluation, patient will be admitted. She was in agreement this plan. Is feeling improved. Lung sounds are improved. I discussed the case with admitting provider, Dr. Andrea Who accepted the admission. Undiagnosed new problem with uncertain prognosis? @ -No Drug Therapy requiring intensive monitoring for toxicity (Heparin, Nitro, Insulin, Cardizem)? @ -No Were any procedures done? @ -No Diagnosis/symptom? @ -COPD, debility, generalized weakness Acute, or Chronic, or Acute on Chronic? @ -Acute on chronic Uncomplicated (without systemic symptoms) or Complicated (systemic symptoms)? @ -Complicated Side effects of treatment? @ -No Exacerbation, Progression, or Severe Exacerbation? @ -No Poses a threat to life or bodily function? How? (Chest pain, USA, CA, pneumonia, PE, COPD, DKA, ARF, appy, cholecystitis, CVA, Diverticulitis, Homicidal, Suicidal, threat to staff... and all critical care pts) @ -Potentially, yes - Lab Data Result diagrams: 03/03/25 15:20 03/03/25 15:20 Lab Results 03/03/25 03/03/25 03/03/25 Range/Units 15:20 15:20 15:20 WBC 4.61 (4.50-10.00) 10*3/uL RBC 4.26 (4.10-5.20) 10*6/uL Hgb 14.2 (12.0-15.0) g/dL Hct 42.3 (37.2-46.3) % MCV 99.3 H (80.0-97.0) fL MCH 33.3 H (27.0-32.0) pg MCHC 33.6 (32.0-37.0) g/dL Plt Count 240 (140-440) 10*3/uL MPV 10.2 (9.5-12.2) fL Immature Gran % (Auto) 0.7 % Neutrophils % 77.3 % Lymphocytes % 15.8 % Monocytes % 5.6 % Eosinophils % 0.4 % Basophils % 0.2 % Immature Gran # 0.03 (0.00-0.04) 10*3/uL Neutrophils # 3.56 (1.80-7.70) 10*3/uL Lymphocytes # 0.73 L (0.90-5.00) 10*3/uL Monocytes # 0.26 (0.20-1.00) 10*3/uL Eosinophils # 0.02 L (0.04-0.35) 10*3/uL Basophils # 0.01 (0.00-0.10) 10*3/uL PT 12.0 (10.0-12.5) sec INR 1.1 (<1.2) APTT 27.7 (22.0-30.0) sec Sodium 141 (137-145) mmol/L Potassium 3.5 (3.5-5.1) mmol/L Chloride 109 H (98-107) mmol/L Carbon Dioxide 23 (22-30) mmol/L Anion Gap 9 mmol/L BUN 20 H (7-17) mg/dL Creatinine 0.37 L (0.52-1.04) mg/dL Est GFR (CKD-EPI)AfAm >90 (>60 ml/min/1.73 sqM) Est GFR (CKD-EPI)NonAf >90 (>60 ml/min/1.73 sqM) Glucose 74 (74-99) mg/dL Plasma Lactic Acid Todd (0.7-2.0) mmol/L Calcium 8.2 L (8.4-10.2) mg/dL Magnesium 1.9 (1.6-2.3) mg/dL Total Bilirubin 1.2 (0.2-1.3) mg/dL AST 32 (14-36) U/L ALT 21 (4-34) U/L Alkaline Phosphatase 225 H (38-126) U/L NT-Pro-B Natriuret Pep 3260 pg/mL Total Protein 5.7 L (6.3-8.2) g/dL Albumin 3.2 L (3.5-5.0) g/dL 03/03/25 Range/Units 15:20 WBC (4.50-10.00) 10*3/uL RBC (4.10-5.20) 10*6/uL Hgb (12.0-15.0) g/dL Hct (37.2-46.3) % MCV (80.0-97.0) fL MCH (27.0-32.0) pg MCHC (32.0-37.0) g/dL Plt Count (140-440) 10*3/uL MPV (9.5-12.2) fL Immature Gran % (Auto) % Neutrophils % % Lymphocytes % % Monocytes % % Eosinophils % % Basophils % % Immature Gran # (0.00-0.04) 10*3/uL Neutrophils # (1.80-7.70) 10*3/uL Lymphocytes # (0.90-5.00) 10*3/uL Monocytes # (0.20-1.00) 10*3/uL Eosinophils # (0.04-0.35) 10*3/uL Basophils # (0.00-0.10) 10*3/uL PT (10.0-12.5) sec INR (<1.2) APTT (22.0-30.0) sec Sodium (137-145) mmol/L Potassium (3.5-5.1) mmol/L Chloride (98-107) mmol/L Carbon Dioxide (22-30) mmol/L Anion Gap mmol/L BUN (7-17) mg/dL Creatinine (0.52-1.04) mg/dL Est GFR (CKD-EPI)AfAm (>60 ml/min/1.73 sqM) Est GFR (CKD-EPI)NonAf (>60 ml/min/1.73 sqM) Glucose (74-99) mg/dL Plasma Lactic Acid Todd 1.7 (0.7-2.0) mmol/L Calcium (8.4-10.2) mg/dL Magnesium (1.6-2.3) mg/dL Total Bilirubin (0.2-1.3) mg/dL AST (14-36) U/L ALT (4-34) U/L Alkaline Phosphatase (38-126) U/L NT-Pro-B Natriuret Pep pg/mL Total Protein (6.3-8.2) g/dL Albumin (3.5-5.0) g/dL - EKG Data -: EKG Interpreted by Me EKG Comments: 12-lead Electrocardiogram Interpretation Note EKG was reviewed and interpreted by myself. 12-lead ECG performed at 1457 is interpreted by me as revealing atrial fibrillation at a rate of 71 beats per minute. Widen is normal. QRS durations 80 ms, QTc is 444 ms. There were no ST or T wave abnormalities to suggest myocardial ischemia or injury. R wave pr ogression across the precordium was satisfactory. By my interpretation this EKG is non-diagnostic for acute ischemia. Disposition Clinical Impression: COPD (chronic obstructive pulmonary disease), Debility, Weakness Disposition: ADMITTED IP TO THIS HOSP Condition: Stable Time of Disposition: 17:20
[2025-03-03] MEDS ORDERED: ONDANSETRON ODT 4 MG TAB PO PRN (19:36)
[2025-03-03] MEDS ORDERED: IPRATROPIUM BROMIDE 0.06% NASAL SPRAY (15 ML) EA NOSTRIL PRN (19:36)
[2025-03-03] MEDS ORDERED: bisacodyL 10 MG SUPP RECTAL PRN (19:36)
[2025-03-03] MEDS: IPRATROPIUM-ALBUTEROL 3 ML NEB INHALATION SCH (21:21)
[2025-03-03] MEDS: DOCUSATE 100 MG CAP PO SCH (22:12)
[2025-03-03] MEDS: APIXABAN 5 MG TAB PO SCH (22:12)
[2025-03-03] MEDS: ATORVASTATIN 10 MG TAB PO SCH (22:12)
[2025-03-03] MEDS: GABAPENTIN 400 MG CAP PO SCH (22:13)
[2025-03-03] MEDS: LETROZOLE 2.5 MG TAB PO SCH (22:14)
[2025-03-03] MEDS: ALPRAZolam 0.5 MG TAB PO PRN (23:41)
[2025-03-03] MEDS: methylPREDNISolone SOD SUCCI 40 MG/ML 1 ML VIAL IV SCH (23:41)
[2025-03-04] MEDS: MORPHINE SULFATE 2 MG/ML SYRINGE IVP PRN (02:00)
[2025-03-04] MEDS: LEVOTHYROXINE 88 MCG TAB PO SCH (05:59)
[2025-03-04 06:30] LABS: Basophils # (A) 0.01 10*3/uL (0.00-0.10); Basophils % (A) 0.2 %; HCT 39.9 % (37.2-46.3); HGB 13.5 g/dL (12.0-15.0); Lymphocytes # (A) 0.29 10*3/uL (0.90-5.00); Lymphocytes % (A) 5.6 %; MCH 33.6 pg (27.0-32.0); MCHC 33.8 g/dL (32.0-37.0); MCV 99.3 fL (80.0-97.0); Mean Platelet Volume 10.1 fL (9.5-12.2); Monocytes # (A) 0.11 10*3/uL (0.20-1.00); Monocytes % (A) 2.1 %; Neutrophils # (A) 4.71 10*3/uL (1.80-7.70); Neutrophils % (A) 91.1 %; Platelet Count 226 10*3/uL (140-440); RBC 4.02 10*6/uL (4.10-5.20); RDW 16.3 % (11.5-14.5); WBC 5.17 10*3/uL (4.50-10.00)
[2025-03-04 06:35] LABS: ALT 19 U/L (4-34); AST 30 U/L (14-36); African American GFR (CKD) >90 (>60 ml/min/1.73 sqM); Albumin 3.1 g/dL (3.5-5.0); Albumin/Globulin Ratio 1.2; Alkaline Phosphatase 221 U/L (38-126); Anion Gap 14 mmol/L; Blood Urea Nitrogen 24 mg/dL (7-17); Calcium 8.8 mg/dL (8.4-10.2); Carbon Dioxide 21 mmol/L (22-30); Chloride 105 mmol/L (98-107); Globulin 2.5 g/dL; Glucose 105 mg/dL (74-99); Non-African American GFR(CKD) >90 (>60 ml/min/1.73 sqM); Potassium 3.9 mmol/L (3.5-5.1); Sodium 140 mmol/L (137-145); Total Protein 5.6 g/dL (6.3-8.2)
[2025-03-04] MEDS: IPRATROPIUM-ALBUTEROL 3 ML NEB INHALATION SCH (07:54)
[2025-03-04] MEDS ORDERED: DIGOXIN 62.5 MCG TAB PO SCH (09:00)
[2025-03-04] MEDS: polyethylene glycoL 3350 17 GM POWD.PACK PO SCH (09:27)
[2025-03-04] MEDS: METOPROLOL TARTRATE 50 MG TAB PO SCH (10:23)
[2025-03-04] MEDS: GABAPENTIN 400 MG CAP PO SCH (10:23)
[2025-03-04] MEDS: DIGOXIN 125 MCG TAB PO SCH (11:21)
[2025-03-04] MEDS: PANTOPRAZOLE 40 MG TABLET PO SCH (11:22)
--- NOTE | 2025-03-04 13:32 | P.HPIM ---
History of Present Illness H&P Date: 03/04/25 Chief Complaint: Inability to ambulate due to pubic rami fracture. Require ECF. 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 on night because she does not like it over there, and she went back home, however the sister who lives with her she did not want her to be there and she ended up coming back to the emergency department yesterday complaining of significant amount of pain and not able to do her activities of daily living therefore she was admitted to the hospital for safety issues, and consulted social services assistant for the patient to be transferred back to subacute rehabilitation, patient is wanted to go somewhere beside [facility] at this point like either [facility] or [facility]. Patient did have venous Doppler both lower extremity that was negative for DVT, she did have a chest x-ray that showed COPD without acute disease, minimal bilateral pleural effusion, she also had a twelve-lead EKG that showed atrial fibrillation with controlled rate. REVIEW OF SYSTEMS: Constitutional: No documented fever, no chills, no night sweats. No weight change. No weakness, fatigue or lethargy. No daytime sleepiness. EENT: No headache. No blurred vision or double vision, no loss of vision. No loss of Hearing, no ringing in the ears, no dizziness. No nasal drainage or congestion. No epistaxis. No sore throat. Lungs: No shortness of breath, no cough, no sputum production. No wheezing. Reports dyspnea with activity. Cardiovascular: No chest pain, no lower extremity edema. No palpitations. No paroxysmal nocturnal dyspnea. No orthopnea. No lightheadedness or dizziness. No syncopal episodes. Abdominal: Reports no abdominal pain. No nausea, vomiting. No diarrhea. No constipation. No bloody or tarry stools reports loss of appetite. Genitourinary: No dysuria, increased frequency, urgency. No urinary retention. Musculoskeletal: No myalgias. No muscle weakness, positive for gait dysfunction, no frequent falls. positive for back pain. No neck pain. Positive for right hip pain and left lower extremity pain. Integumentary: No wounds, no lesions. No rash or pruritus. positive for unusual bruising. No change in hair or nails. Neurologic: No aphasia. No facial droop. No change in mentation. No head injury. No headache. No paralysis. No paresthesia. Psychiatric: No depression. positive for anxiety. No mood swings. Endocrine: No abnormal blood sugars. No weight change. PAST MEDICAL HISTORY: Hypertension and hypertensive cardiovascular disease. Mixed hyperlipidemia. Paroxysmal atrial fibrillation. Left breast cancer status post radical left mastectomy with radiation therapy currently on hormonal therapy. Osteoporosis. Anxiety. DVT of the right lower extremity. Allergic rhinitis. Spondylosis of the lumbar spine with radiculopathy PAST SURGICAL HISTORY: Bilateral cataract surgery. Tonsillectomy. Colonoscopy 2022. Breast biopsy with left radical mastectomy and radiation therapy 2014. Hysterectomy 1981. Left leg tendon repair. SOCIAL HISTORY: Patient is a lifelong non-smoker, she denies any alcohol ingestion, she denies any drug use or abuse, she lives at home, she uses a scooter for activities of daily living, she pivots using a walker, FAMILY HISTORY: Father at the age of 83 from colon cancer, mother at age of 90 from me [place], patient has 1 brother with prostate cancer, patient has 1 sister with spondylosis of the lumbar spine along with hypertension, PHYSICAL EXAMINATION: General: 84-year-old female in and down in bed in minimal distress. HEENT: Head is atraumatic, normocephalic, pupils were equal round reactive to light and recommendation, extraocular muscle movement were intact, sclera nonicteric, conjunctivae were pale, mucous membranes of the mouth are somewhat dry. Neck: Supple, no JVP, normal carotid upstroke bilaterally, no lymphadenopathy. Chest: Decreased breath sounds at the bases, few rhonchi, no expiratory wheezes, no chest wall tenderness, no intercostal retractions. Heart: First heart sound is normal, second heart sounds normal Abdomen: Soft, nontender, nondistended, positive bowel sounds. Extremities: There is no edema no calf tenderness DP +2 bilaterally bilateral foot drop Neurologic examination: Patient is awake alert and oriented x3, cranial nerves II-12 appear grossly intact, muscle power were 4 out of 5 in upper extremities bilateral lower extremity weakness, and bilateral foot drops. ASSESSMENT AND PLAN: 1. Status post fall with right acetabular fracture extending to the right pubic rami. Continue current pain management with morphine sulfate 2 mg IV push every 4 hours, continue current treatment plan, physical therapy evaluation, social services assistant consultation for discharge planning to subacute rehabilitation 2. Acute hypoxemic respiratory failure likely due to acute exacerbation of COPD. Continue patient on Solu-Medrol 40 mg IV push every 8 hours, continue patient on DuoNeb 3 minimalization 4 times every day, continue oxygen support 2 L nasal cannula, monitor the patient very closely, chest x-ray reviewed showed evidence of minimal bilateral pleural effusion patient will be given 1 dose of Lasix 40 mg IV push x 1 3. Hypertension and hypertensive cardiovascular disease. Continue patient on metoprolol 50 mg once every day, monitor the patient blood pressure very closely. 4. Mixed hyperlipidemia. Continue patient on atorvastatin 10 mg once every day. 5. Paroxysmal atrial fibrillation. Continue patient on Eliquis 5 mg orally twice every day, digoxin 125 mcg once every day, metoprolol 50 mg once every day, patient seems to be controlled at this point in time. Will follow-up with the patient very closely. 6. Hypothyroidism. Continue patient on levothyroxine 88 mcg once every day, monitor TSH and free T4. 7. History of breast cancer status post left radical mastectomy with radiation therapy 2014 along with hormonal therapy continue with letrozole 2.5 mg orally once every day. 8. History of deep venous thrombosis of the right lower extremity continue patient on Eliquis 5 mg orally twice every day for life. 9. 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 Continue patient on gabapentin 400 mg at bedtime along with 800 mg 3 times every day. 10. Osteoporosis. Continue calcium and vitamin D, will require Prolia 60 mg subcutaneously every 6 months from now on, follow-up with the DEXA scan as an outpatient. 11. DVT prophylaxis. Continue Eliquis 5 mg orally twice every day. 12. GI prophylaxis. Continue patient on PPI. 13. Physical therapy evaluation. 14. muffle worker consultation for discharge planning patient will require subacute rehabilitation Past Medical History Past Medical History: Cancer, Hyperlipidemia, Hypertension, Thyroid Disorder Additional Past Medical History / Comment(s): ANXIETY, NEUROPATHY History of Any Multi-Drug Resistant Organisms: None Reported Past Surgical History: Breast Surgery, Hysterectomy, Tonsillectomy Additional Past Surgical History / Comment(s): LEG SURGERY, breast ca Past Anesthesia/Blood Transfusion Reactions: No Reported Reaction Past Psychological History: Anxiety Smoking Status: Never smoker Past Alcohol Use History: None Reported Past Drug Use History: None Reported - Past Family History Mother Family Medical History: Cancer Additional Family Medical History / Comment(s): ovarian Father Family Medical History: Cancer Additional Family Medical History / Comment(s): colon Medications and Allergies Home Medications Medication Instructions Recorded Confirmed Type Letrozole [Femara] 2.5 mg PO HS@209904/26/19 03/03/25 History Digoxin [Digitek] 125 mcg PO DAILY@89911/28/22 03/03/25 History Ipratropium Butler 0.06%Nasal 2 spray EA NOSTRIL BID PRN 02/04/25 03/03/25 History [Atrovent Nasal 0.06%] Levothyroxine Sodium [Synthroid] 88 mcg PO DAILY@59902/04/25 03/03/25 History Metoprolol Tartrate [Lopressor] 50 mg PO DAILY@89902/04/25 03/03/25 History Ondansetron [Zofran] 4 mg PO Q8HR PRN #21 tab 02/06/25 03/03/25 Rx ALPRAZolam [Xanax] 0.5 mg PO TID PRN #9 tab 02/07/25 03/03/25 Rx Apixaban [Eliquis] 5 mg PO BID@0900,209903/03/25 03/03/25 History Atorvastatin [Lipitor] 10 mg PO HS@209903/03/25 03/03/25 History Docusate [Colace] 100 mg PO BID@0900,209903/03/25 03/03/25 History Gabapentin [Neurontin] 1,200 mg PO HS@209903/03/25 03/03/25 History Gabapentin [Neurontin] 800 mg PO BID@0900,1500 03/03/25 03/03/25 History Omeprazole [PriLOSEC] 20 mg PO DAILY@899 03/03/25 03/03/25 History bisacodyL [Dulcolax] 10 mg RECTAL DAILY PRN 03/03/25 03/03/25 History bisacodyL [Dulcolax] 10 mg RECTAL DAILY@1700 03/03/25 03/03/25 History polyethylene glycoL 3350 [Miralax] 17 gm PO DAILY@0900 03/03/25 03/03/25 History Allergies Allergy/AdvReac Type Severity Reaction Status Date / Time adhesive Allergy Unknown Verified 03/03/25 18:02 amoxicillin trihydrate Allergy Unknown Verified 03/03/25 18:02 [From Augmentin] ciprofloxacin [From Cipro] Allergy Unknown Verified 03/03/25 18:02 ciprofloxacin HCl Allergy Unknown Verified 03/03/25 18:02 [From Cipro] clindamycin Allergy Anaphylaxis Verified 03/03/25 18:02 erythromycin base Allergy Unknown Verified 03/03/25 18:02 [Erythromycin Base] Macrolide Antibiotics Allergy Unknown Verified 03/03/25 18:02 Penicillins Allergy Unknown Verified 03/03/25 18:02 potassium clavulanate Allergy Unknown Verified 03/03/25 18:02 [From Augmentin] Sulfa (Sulfonamide Allergy Unknown Verified 03/03/25 18:02 Antibiotics) Physical Exam Vitals: Vital Signs Temp Pulse Pulse Resp BP BP Pulse Ox 03/04/25 11:26 80 03/04/25 11:16 80 03/04/25 09:00 03/04/25 08:06 92 03/04/25 07:54 88 94 L 03/04/25 07:00 98.8 F 82 17 120/80 95 03/04/25 02:00 98.0 F 82 19 118/62 94 L 03/03/25 23:35 97.9 F 58 L 18 128/84 94 L 03/03/25 22:09 101 H 18 108/83 96 03/03/25 21:34 90 03/03/25 21:21 88 03/03/25 20:14 97.4 F L 77 18 129/76 95 03/03/25 18:23 97.8 F 58 L 18 130/66 99 03/03/25 17:14 78 03/03/25 17:04 78 03/03/25 14:43 20 03/03/25 14:41 97.4 F L 83 18 123/86 95 Pulse Ox 03/04/25 11:26 03/04/25 11:16 03/04/25 09:00 93 L 03/04/25 08:06 03/04/25 07:54 03/04/25 07:00 03/04/25 02:00 03/03/25 23:35 03/03/25 22:09 03/03/25 21:34 03/03/25 21:21 03/03/25 20:14 03/03/25 18:23 03/03/25 17:14 03/03/25 17:04 03/03/25 14:43 03/03/25 14:41 Intake and Output 03/03/25 03/04/25 03/04/25 22:59 06:59 14:59 Intake Total 230 Output Total 200 Balance -200 230 Intake: Oral 230 Output: Urine 200 Other: Voiding Method External Catheter External Catheter Weight 64.41 kg Results CBC & Chem 7: 03/04/25 05:42 03/04/25 05:42 Labs: Abnormal Lab Results - Last 24 Hours (Table) 03/03/25 03/03/25 03/04/25 Range/Units 15:20 15:20 05:42 RBC 4.02 L (4.10-5.20) 10*6/uL MCV 99.3 H 99.3 H (80.0-97.0) fL MCH 33.3 H 33.6 H (27.0-32.0) pg RDW 16.3 H (11.5-14.5) % Immature Gran # 0.05 H (0.00-0.04) 10*3/uL Lymphocytes # 0.73 L 0.29 L (0.90-5.00) 10*3/uL Monocytes # 0.11 L (0.20-1.00) 10*3/uL Eosinophils # 0.02 L 0.00 L (0.04-0.35) 10*3/uL Chloride 109 H (98-107) mmol/L Carbon Dioxide (22-30) mmol/L BUN 20 H (7-17) mg/dL Creatinine 0.37 L (0.52-1.04) mg/dL Glucose (74-99) mg/dL Calcium 8.2 L (8.4-10.2) mg/dL Alkaline Phosphatase 225 H (38-126) U/L Total Protein 5.7 L (6.3-8.2) g/dL Albumin 3.2 L (3.5-5.0) g/dL 03/04/25 Range/Units 05:42 RBC (4.10-5.20) 10*6/uL MCV (80.0-97.0) fL MCH (27.0-32.0) pg RDW (11.5-14.5) % Immature Gran # (0.00-0.04) 10*3/uL Lymphocytes # (0.90-5.00) 10*3/uL Monocytes # (0.20-1.00) 10*3/uL Eosinophils # (0.04-0.35) 10*3/uL Chloride (98-107) mmol/L Carbon Dioxide 21 L (22-30) mmol/L BUN 24 H (7-17) mg/dL Creatinine 0.47 L (0.52-1.04) mg/dL Glucose 105 H (74-99) mg/dL Calcium (8.4-10.2) mg/dL Alkaline Phosphatase 221 H (38-126) U/L Total Protein 5.6 L (6.3-8.2) g/dL Albumin 3.1 L (3.5-5.0) g/dL
[2025-03-04 14:51] VITALS: BMI 22.2
[2025-03-04] MEDS: bisacodyL 10 MG SUPP RECTAL SCH (17:50)
[2025-03-05 10:31] LABS: Basophils # (A) 0.02 X 10*3/uL (0.00-0.10); Basophils % (A) 0.5 %; Eosinophils # (A) 0 X 10*3/uL (0.04-0.35); Eosinophils % (A) 0 %; HCT 38.6 % (37.2-46.3); HGB 12.7 g/dL (12.0-15.0); Lymphocytes # (A) 0.32 X 10*3/uL (0.90-5.00); Lymphocytes % (A) 7.9 %; MCH 33.4 pg (27.0-32.0); MCHC 32.9 g/dL (32.0-37.0); MCV 101.6 FL (80.0-97.0); Mean Platelet Volume 10.2 FL (9.5-12.2); Monocytes # (A) 0.17 X 10*3/uL (0.20-1.00); Monocytes % (A) 4.2 %; NRBC Per 100 WBC 0 X 10*3/uL (0.00-0.01); Neutrophils # (A) 3.48 X 10*3/uL (1.80-7.70); Neutrophils % (A) 86.4 %; Platelet Count 274 X 10*3/uL (140-440); RDW 16.1 % (11.5-14.5); WBC 4.03 X 10*3/uL (4.50-10.00)
[2025-03-05 11:05] LABS: ALT 21 U/L (8-44); AST 30 U/L (13-35); Albumin 3.3 g/dL (3.8-4.9); Albumin/Globulin Ratio 1.57 Ratio (1.60-3.17); Alkaline Phosphatase 200 U/L (41-126); Blood Urea Nitrogen 26.5 mg/dL (9.0-27.0); Calcium 8.6 mg/dL (8.7-10.3); Carbon Dioxide 22.6 mmol/L (21.6-31.8); Chloride 108 mmol/L (96-109); Globulin 2.1 g/dL (1.6-3.3); Glucose 146 mg/dL (70-110); Potassium 4.4 mmol/L (3.5-5.5); Sodium 145 mmol/L (135-145); Total Bilirubin 0.6 mg/dL (0.3-1.2); Total Protein 5.4 g/dL (6.2-8.2)
--- NOTE | 2025-03-06 13:02 | P.PN ---
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 as well as rad iculopathy, osteoporosis, DVT of the right lower extremity, patient was recently hospitalized at [facility] after she had fallen with her scooter and landed on the ground, ended up with right acetabular fracture extending into the right pubic rami fracture, she was sent to [facility] rehabilitation, however the patient decided to leave [facility] on the [place] on night because she does not like it over there, and she went back home, however the sister who lives with her she did not want her to be there and she ended up coming back to the emergency department yesterday complaining of significant amount of pain and not able to do her activities of daily living therefore she was admitted to the hospital for safety issues, and consulted geriatric social worker for the patient to be transferred back to subacute rehabilitation, patient is wanted to go somewhere beside [facility] at this point like either [facility] or [facility]. Patient did have venous Doppler both lower extremity that was negative for DVT, she did have a chest x-ray that showed COPD without acute disease, minimal bilateral pleural effusion, she also had a twelve-lead EKG that showed atrial fibrillation with controlled rate. 03/05: Patient sitting up in bed in no apparent distress, she is not sleeping very well at night, she continues to have some pain in the right hip area, right lower extremity continues to be very swollen, I spoke with the nursing staff about applying bilateral knee-high MARIBEL hose, seems the patient to be resistant to the idea because of the panic attack, she has no abdominal pain, nausea vomiting or diarrhea, she appears to be medically stable for the patient to be transferred to subacute rehabilitation at this time. Patient is not able to take care of herself at home at this time. REVIEW OF SYSTEMS: Constitutional: No documented fever, no chills, no night sweats. No weight change. No weakness, fatigue or lethargy. No daytime sleepiness. EENT: No headache. No blurred vision or double vision, no loss of vision. No loss of Hearing, no ringing in the ears, no dizziness. No nasal drainage or congestion. No epistaxis. No sore throat. Lungs: No shortness of breath, no cough, no sputum production. No wheezing. Reports dyspnea with activity. Cardiovascular: No chest pain, no lower extremity edema. No palpitations. No paroxysmal nocturnal dyspnea. No orthopnea. No lightheadedness or dizziness. No syncopal episodes. Abdominal: Reports no abdominal pain. No nausea, vomiting. No diarrhea. No constipation. No bloody or tarry stools reports loss of appetite. Genitourinary: No dysuria, increased frequency, urgency. No urinary retention. Musculoskeletal: No myalgias. No muscle weakness, positive for gait dysfunction, no frequent falls. positive for back pain. No neck pain. Positive for right hip pain and left lower extremity pain. Integumentary: No wounds, no lesions. No rash or pruritus. positive for unusual bruising. No change in hair or nails. Neurologic: No aphasia. No facial droop. No change in mentation. No head injury. No headache. No paralysis. No paresthesia. Psychiatric: No depression. positive for anxiety. No mood swings. Endocrine: No abnormal blood sugars. No weight change. PHYSICAL EXAMINATION: General: 84-year-old female in and down in bed in minimal distress. HEENT: Head is atraumatic, normocephalic, pupils were equal round reactive to light and recommendation, extraocular muscle movement were intact, sclera nonicteric, conjunctivae were pale, mucous membranes of the mouth are somewhat dry. Neck: Supple, no JVP, normal carotid upstroke bilaterally, no lymphadenopathy. Chest: Decreased breath sounds at the bases, few rhonchi, no expiratory wheezes, no chest wall tenderness, no intercostal retractions. Heart: First heart sound is normal, second heart sounds normal Abdomen: Soft, nontender, nondistended, positive bowel sounds. Extremities: There is no edema no calf tenderness DP +2 bilaterally bilateral foot drop Neurologic examination: Patient is awake alert and oriented x3, cranial nerves II-12 appear grossly intact, muscle power were 4 out of 5 in upper extremities bilateral lower extremity weakness, and bilateral foot drops. ASSESSMENT AND PLAN: 1. Status post fall with right acetabular fracture extending to the right pubic rami. Continue current pain management with morphine sulfate 2 mg IV push every 4 hours, continue current treatment plan, physical therapy evaluation, geriatric social worker consultation for discharge planning to subacute rehabilitation continue [place] as needed. 2. Acute hypoxemic respiratory failure likely due to acute exacerbation of COPD. Continue patient on Solu-Medrol 40 mg IV push every 12 hours, continue patient on DuoNeb 3 minimalization 4 times every day, continue oxygen support 2 L nasal cannula, monitor the patient very closely, chest x-ray reviewed showed evidence of minimal bilateral pleural effusion 3. Hypertension and hypertensive cardiovascular disease. Continue patient on metoprolol 50 mg once every day, monitor the patient blood pressure very closely. 4. Mixed hyperlipidemia. Continue patient on atorvastatin 10 mg once every day. 5. Paroxysmal atrial fibrillation. Continue patient on Eliquis 5 mg orally twice every day, digoxin 125 mcg once every day, metoprolol 50 mg once every day , patient seems to be controlled at this point in time. Will follow-up with the patient very closely. 6. Hypothyroidism. Continue patient on levothyroxine 88 mcg once every day, monitor TSH and free T4. 7. History of breast cancer status post left radical mastectomy with radiation therapy 2014 along with hormonal therapy continue with letrozole 2.5 mg orally once every day. 8. History of deep venous thrombosis of the right lower extremity continue patient on Eliquis 5 mg orally twice every day for life. 9. 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 Continue patient on gabapentin 400 mg at bedtime along with 800 mg 3 times every day. 10. Osteoporosis. Continue calcium and vitamin D, will require Prolia 60 mg subcutaneously every 6 months from now on, follow-up with the DEXA scan as an outpatient. 11. DVT prophylaxis. Continue Eliquis 5 mg orally twice every day. 12. GI prophylaxis. Continue patient on PPI. 13. Physical therapy evaluation. 14. icebox worker consultation for discharge planning patient will require suba cute rehabilitation likely [facility] tomorrow morning. Objective - Vital Signs Vital signs: Vital Signs Temp 97.4 F L 03/05/25 07:08 Pulse 70 03/05/25 07:08 Resp 18 03/05/25 07:08 BP 118/79 03/05/25 07:08 Pulse Ox 95 03/05/25 07:08 FiO2 Intake & Output 03/04/25 03/05/2525 18:59 06:59 18:59 Intake Total 230 Output Total 300 200 Balance -70 -200 Weight 64.41 kg Intake: Oral 230 Output: Urine 300 200 Other: Voiding Method External Catheter Diaper External Catheter # Voids 4 - Labs CBC & Chem 7: 03/05/25 05:40 03/05/25 05:40
--- NOTE | 2025-03-06 13:03 | P.PN ---
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 for physical therapy rehabilitation, however the patient decided to leave [facility] on [facility] on night because she does not like it over there, and she went back home, however the sister who lives with her she did not want her to be there and she ended up coming back to the emergency department yesterday complaining of significant amount of pain and not able to do her activities of daily living therefore she was admitted to the hospital for safety issues, and consulted social worker school for the patient to be transferred back to subacute rehabilitation, patient is wanted to go somewhere beside [facility] at this point like either [facility] or [facility]. Patient did have venous Doppler both lower extremity that was negative for DVT, she did have a chest x-ray that showed COPD without acute disease, minimal bilateral pleural effusion, she also had a twelve-lead EKG that showed atrial fibrillation with controlled rate. 03/05: Patient sitting up in bed in no apparent distress, she is not sleeping very well at night, she continues to have some pain in the right hip area, right lower extremity continues to be very swollen, I spoke with the nursing staff about applying bilateral knee-high MARIBEL hose, seems the patient to be resistant to the idea because of the panic attack, she has no abdominal pain, nausea vomiting or diarrhea, she appears to be medically stable for the patient to be transferred to subacute rehabilitation at this time. Patient is not able to take care of herself at home at this time. 03/06: Patient sitting up in bed in no apparent distress, she is feeling better, her breathing is a lot better, she is currently on Solu-Medrol 40 mg IV push every 12 hours, will continue that, continue nebulized treatment, continue oxygen support as needed, continue bilateral knee-high MARIBEL hose, patient seems to be resistant to the idea of putting MARIBEL hose on both legs, I spoke with the social worker school, patient will likely be able to be transferred to [facility] hopefully tomorrow morning after her medication application is submitted REVIEW OF SYSTEMS: Constitutional: No documented fever, no chills, no night sweats. No weight change. No weakness, fatigue or lethargy. No daytime sleepiness. EENT: No headache. No blurred vision or double vision, no loss of vision. No loss of Hearing, no ringing in the ears, no dizziness. No nasal drainage or congestion. No epistaxis. No sore throat. Lungs: No shortness of breath, no cough, no sputum production. No wheezing. Reports dyspnea with activity. Cardiovascular: No chest pain, no lower extremity edema. No palpitations. No paroxysmal nocturnal dyspnea. No orthopnea. No lightheadedness or dizziness. No syncopal episodes. Abdominal: Reports no abdominal pain. No nausea, vomiting. No diarrhea. No constipation. No bloody or tarry stools reports loss of appetite. Genitourinary: No dysuria, increased frequency, urgency. No urinary retention. Musculoskeletal: No myalgias. No muscle weakness, positive for gait dysfunction, no frequent falls. positive for back pain. No neck pain. Positive for right hip pain and left lower extremity pain. Integumentary: No wounds, no lesions. No rash or pruritus. positive for unusual bruising. No change in hair or nails. Neurologic: No aphasia. No facial droop. No change in mentation. No head injury. No headache. No paralysis. No paresthesia. Psychiatric: No depression. positive for anxiety. No mood swings. Endocrine: No abnormal blood sugars. No weight change. PHYSICAL EXAMINATION: General: 84-year-old female in and down in bed in minimal distress. HEENT: Head is atraumatic, normocephalic, pupils were equal round reactive to light and recommendation, extraocular muscle movement were intact, sclera brandie cteric, conjunctivae were pale, mucous membranes of the mouth are somewhat dry. Neck: Supple, no JVP, normal carotid upstroke bilaterally, no lymphadenopathy. Chest: Decreased breath sounds at the bases, few rhonchi, no expiratory wheezes, no chest wall tenderness, no intercostal retractions. Heart: First heart sound is normal, second heart sounds normal Abdomen: Soft, nontender, nondistended, positive bowel sounds. Extremities: There is no edema no calf tenderness DP +2 bilaterally bilateral fo ot drop Neurologic examination: Patient is awake alert and oriented x3, cranial nerves II-12 appear grossly intact, muscle power were 4 out of 5 in upper extremities bilateral lower extremity weakness, and bilateral foot drops. ASSESSMENT AND PLAN: 1. Status post fall with right acetabular fracture extending to the right pubic rami. Continue current pain management with morphine sulfate 2 mg IV push every 4 hours, continue current treatment plan, physical therapy evaluation, social worker school consultation for discharge planning to subacute rehabilitation continue [place] as needed. 2. Acute hypoxemic respiratory failure likely due to acute exacerbation of COPD. Continue patient on Solu-Medrol 40 mg IV push every 12 hours, continue patient on DuoNeb 3 minimalization 4 times every day, continue oxygen support 2 L nasal cannula, monitor the patient very closely, chest x-ray reviewed showed evidence of minimal bilateral pleural effusion 3. Hypertension and hypertensive cardiovascular disease. Continue patient on metoprolol 50 mg once every day, monitor the patient blood pressure very closely. 4. Mixed hyperlipidemia. Continue patient on atorvastatin 10 mg once every day. 5. Paroxysmal atrial fibrillation. Continue patient on Eliquis 5 mg orally twice every day, digoxin 125 mcg once every day, metoprolol 50 mg once every day, patient seems to be controlled at this point in time. Will follow-up with the patient very closely. 6. Hypothyroidism. Continue patient on levothyroxine 88 mcg once every day, monitor TSH and free T4. 7. History of breast cancer status post left radical mastectomy with radiation therapy 2014 along with hormonal therapy continue with letrozole 2.5 mg orally once every day. 8. History of deep venous thrombosis of the right lower extremity continue patient on Eliquis 5 mg orally twice every day for life. 9. 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 Continue patient on gabapentin 400 mg at bedtime along with 800 mg 3 times every day. 10. Osteoporosis. Continue calcium and vitamin D, will require Prolia 60 mg subcutaneously every 6 months from now on, follow-up with the DEXA scan as an outpatient. 11. DVT prophylaxis. Continue Eliquis 5 mg orally twice every day. 12. GI prophylaxis. Continue patient on PPI. 13. Physical therapy evaluation. 14. precast worker consultation for discharge planning patient will require subacute rehabilitation likely [facility] tomorrow morning. Objective - Vital Signs Vital signs: Vital Signs Temp 97.7 F 03/06/25 07:00 Pulse 89 03/06/25 11:08 Resp 18 03/06/25 07:00 BP 122/76 03/06/25 07:00 Pulse Ox 97 03/06/25 07:50 FiO2 Intake & Output 03/05/25 03/06/25 03/06/25 18:59 06:59 18:59 Intake Total 1740 Output Total 400 Balance 1740 -400 Intake: Oral 1740 Output: Urine 400 Other: Voiding Method Diaper Diaper Diaper # Voids 1 1 - Labs CBC & Chem 7: 03/05/25 05:40 03/05/25 05:40
[2025-03-06] MEDS: methylPREDNISolone SOD SUCCI 40 MG/ML 1 ML VIAL IV SCH (20:41)
[2025-03-07 02:10] VITALS: RESP 18
[2025-03-07 07:32] VITALS: BP 126/66; TEMP 97.3
[2025-03-07] MEDS: HYDROcodone/APAP 7.5-325MG 1 EACH TAB PO PRN (08:31)
--- NOTE | 2025-03-07 09:41 | P.DS ---
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 as well as radiculopathy, osteoporosis, DVT of the right lower extremity, patient was recently hospitalized at [facility] after she had fallen with her scooter and landed on the ground, ended up with right acetabular fracture extending into the right pubic rami fracture, she was sent to [facility] for physical therapy rehabilitation, however the patient decided to leave [facility] on [facility] on night because she does not like it over there, and she went back home, however the sister who lives with her she did not want her to be there and she ended up coming back to the emergency department yesterday complaining of significant amount of pain and not able to do her activities of daily living therefore she was admitted to the hospital for safety issues, and consulted social studies teacher for the patient to be transferred back to subacute rehabilitation, patient is wanted to go somewhere beside [facility] at this point like either [facility] or [facility]. Patient did have venous Doppler both lower extremity that was negative for DVT, she did have a chest x-ray that showed COPD without acute disease, minimal bilateral pleural effusion, she also had a twelve-lead EKG that showed atrial fibrillation with controlled rate. 03/05: Patient sitting up in bed in no apparent distress, she is not sleeping very well at night, she continues to have some pain in the right hip area, right lower extremity continues to be very swollen, I spoke with the nursing staff about applying bilateral knee-high MARIBEL hose, seems the patient to be resistant to the idea because of the panic attack, she has no abdominal pain, nausea vomiting or diarrhea, she appears to be medically stable for the patient to be transferred to subacute rehabilitation at this time. Patient is not able to take care of herself at home at this time. 03/06: Patient sitting up in bed in no apparent distress, she is feeling better, her breathing is a lot better, she is currently on Solu-Medrol 40 mg IV push every 12 hours, will continue that, continue nebulized treatment, continue oxygen support as needed, continue bilateral knee-high MARIBEL hose, patient seems to be resistant to the idea of putting MARIBEL hose on both legs, I spoke with the social studies teacher, patient will likely be able to be transferred to [facility] hopefully tomorrow morning after her medication application is submitted 03/07: Patient sitting up in bed in no apparent distress, she is scheduled to be discharged to [facility] versus physical therapy rehabilitation, patient cannot bend over there, she is accepted at this point in time, I will follow-up with the patient in the [facility] tomorrow morning. Discharge diagnoses: 1. Status post fall with right acetabular fracture extending to the right pubic rami. 2. Acute hypoxemic respiratory failure likely due to acute exacerbation of COPD. 3. Hypertension and hypertensive cardiovascular disease. 4. Mixed hyperlipidemia. 5. Paroxysmal atrial fibrillation. 6. Hypothyroidism. 7. History of breast cancer status post left radical mastectomy with radiation therapy 2014 along with hormonal therapy 8. History of deep venous thrombosis of the right lower extremity continue patient on Eliquis 5 mg orally twice every day for life. 9. 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 10. Osteoporosis. Patient Condition at Discharge: Fair Plan - Discharge Summary Discharge Rx Participant: No New Discharge Prescriptions: No Action Letrozole [Femara] 2.5 mg PO HS@2100 Metoprolol Tartrate [Lopressor] 50 mg PO DAILY@0900 Levothyroxine Sodium [Synthroid] 88 mcg PO DAILY@0600 Ipratropium [place] 0.06%Nasal [Atrovent Nasal 0.06%] 2 spray EA NOSTRIL BID PRN PRN Reason: nasal coongestion Ondansetron [Zofran] 4 mg PO Q8HR PRN #21 tab PRN Reason: Nausea Gabapentin [Neurontin] 800 mg PO BID@0900,1500 Omeprazole [PriLOSEC] 20 mg PO DAILY@0900 Apixaban [Eliquis] 5 mg PO BID@0900,2100 Digoxin [Digitek] 125 mcg PO DAILY@0900 ALPRAZolam [Xanax] 0.5 mg PO TID PRN #9 tab PRN Reason: Anxiety Atorvastatin [Lipitor] 10 mg PO HS@2100 bisacodyL [Dulcolax] 10 mg RECTAL DAILY@1700 bisacodyL [Dulcolax] 10 mg RECTAL DAILY PRN PRN Reason: Constipation Gabapentin [Neurontin] 1,200 mg PO HS@2100 polyethylene glycoL 3350 [Miralax] 17 gm PO DAILY@0900 Docusate [Colace] 100 mg PO BID@0900,2099 Discharge Medication List Letrozole [Femara] 2.5 mg PO HS@209904/26/19 [History] Digoxin [Digitek] 125 mcg PO DAILY@0900 11/28/22 [History] Ipratropium [place] 0.06%Nasal [Atrovent Nasal 0.06%] 2 spray EA NOSTRIL BID PRN 02/04/25 [History] Levothyroxine Sodium [Synthroid] 88 mcg PO DAILY@0602/04/25 [History] Metoprolol Tartrate [Lopressor] 50 mg PO DAILY@0902/04/25 [History] Ondansetron [Zofran] 4 mg PO Q8HR PRN #21 tab 02/06/25 [Rx] ALPRAZolam [Xanax] 0.5 mg PO TID PRN #9 tab 02/07/25 [Rx] Apixaban [Eliquis] 5 mg PO BID@0900,209903/03/25 [History] Atorvastatin [Lipitor] 10 mg PO HS@209903/03/25 [History] Docusate [Colace] 100 mg PO BID@0900,209903/03/25 [History] Gabapentin [Neurontin] 1,200 mg PO HS@209903/03/25 [History] Gabapentin [Neurontin] 800 mg PO BID@0900,1500 03/03/25 [History] Omeprazole [PriLOSEC] 20 mg PO DAILY@0900 03/03/25 [History] bisacodyL [Dulcolax] 10 mg RECTAL DAILY PRN 03/03/25 [History] bisacodyL [Dulcolax] 10 mg RECTAL DAILY@1700 03/03/25 [History] polyethylene glycoL 3350 [Miralax] 17 gm PO DAILY@0900 03/03/25 [History] Follow up Appointment(s)/Referral(s): Tino Andrea MD [Primary Care Provider] - 1-2 days
[2025-03-07 11:28] VITALS: PULSE 82
[2025-03-08] MEDS ORDERED: predniSONE 20 MG TAB PO SCH (09:00)
== END 2025-03-07 13:07 ==
LOC: EC 14:38 → 6NMEDSUR 17:24
PROVIDERS: ADMIT Internal Medicine; ATTEND Internal Medicine
DX: S32.401A Unspecified fracture of right acetabulum, initial encounter for closed fracture (principal); W19.XXXA Unspecified fall, initial encounter; J96.01 Acute respiratory failure with hypoxia; R54 Age-related physical debility; J44.9 Chronic obstructive pulmonary disease, unspecified; I48.0 Paroxysmal atrial fibrillation; E78.2 Mixed hyperlipidemia; I11.9 Hypertensive heart disease without heart failure; E03.9 Hypothyroidism, unspecified; F41.0 Panic disorder [episodic paroxysmal anxiety]; M81.0 Age-related osteoporosis without current pathological fracture; J30.9 Allergic rhinitis, unspecified; M47.26 Other spondylosis with radiculopathy, lumbar region; M21.372 Foot drop, left foot; M21.371 Foot drop, right foot; G62.9 Polyneuropathy, unspecified; Z85.3 Personal history of malignant neoplasm of breast; Z86.718 Personal history of other venous thrombosis and embolism; Z90.12 Acquired absence of left breast and nipple; Z92.3 Personal history of irradiation; Z79.01 Long term (current) use of anticoagulants; Z79.890 Hormone replacement therapy; Z79.899 Other long term (current) drug therapy; Z88.0 Allergy status to penicillin; Z88.1 Allergy status to other antibiotic agents; Z88.2 Allergy status to sulfonamides
CPT/HCPCS: 96376 ×4; 96374 ×2; 96375; 99285; 94640 ×9; 94760 ×2; 93005; 97110; 97530; 97535; 97166; 83880; 80053 ×3; 83605; 83735; 85025 ×3; 85610; 85730; 71046; 93970; G0378 ×5; J2270 ×4; J2919 ×4